=== PATIENT | female | born 1960 | race Caucasian/White ===

== ENCOUNTER 2016-09-02 12:29 | Emergency (ER) | payer BC ==
[~2016-09-02] VITALS: Ht 170.2 cm; Wt 82.9 kg
[~2016-09-02 12:29] MED LIST: CYCL-36 PO; ESTR0.5T PO; FENT25DI T-DERMAL; HYDR10SO PO; LOSA50TA PO; PROT40TA PO; ROSU20 PO
[2016-09-02 12:36] VITALS: BP 157/94; PULSE 107; RESP 16; TEMP 97.9; O2SAT 97
[2016-09-02] MEDS ORDERED: MORP1TAB24 PO (12:48)
[2016-09-02] MEDS ORDERED: ESTR0.5T PO (12:48)
[2016-09-02] MEDS ORDERED: HYDR-3535 PO (12:48)
[2016-09-02] MEDS ORDERED: LOSA100T PO (12:48)
[2016-09-02] MEDS ORDERED: ROSU20 PO (12:48)
--- NOTE | 2016-09-02 13:20 | RADHPO ---
EXAM DATE/TIME: 09/02/2016 13:05 [place] COMPARISON: No previous studies available for comparison. INDICATIONS : Cough and fever MEDICAL HISTORY : Hypertension. SURGICAL HISTORY : Fusion, cervical. ENCOUNTER: Initial ACUITY: 1 month PAIN SCORE: 4/10 LOCATION: Bilateral chest FINDINGS: Minimal parenchymal changes are present left base. Right lung is clear. The heart and pulmonary vasc ularity are normal. The portion of the bony skeleton visualized is unremarkable. CONCLUSION: Minimal parenchymal changes left base suspicious for an early inflammatory process. Shaun Gomez MD FACR on September 02, 2016 at 13:17 Board Certified Radiologist. This report was verified electronically.
--- NOTE | 2016-09-02 13:43 | PD ---
HPI Chief Complaint: Cold / Flu Symptoms Time Seen by Provider: 13:00 Travel History International Travel<30 days: No Contact w/Intl Traveler<30days: No Traveled to known affect area: No History of Present Illness HPI 56-year-old female presents emergency department for evaluation of a cough for one month. Patient reports approximately one month ago she developed upper respiratory like illness primarily nasal congestion which progressed into a sinus infection. She reports after completing the Augmentin for her sinus infection she developed a cough and continued nasal congestion. She reports 2 days ago she was evaluated by urgent care and put on azithromycin. She reports since that time she's had low-grade fevers of a MAXIMUM TEMPERATURE of 100 and a continued productive cough. She presents to the emergency department today for evaluation of cough and low-grade fever, wheezing, nasal congestion. She denies chest pain, shortness of breath, nausea, vomiting or shaking shivering chills. PFSH Past Medical History Narrative Medical Significant for hypertension, hyperlipidemia Cardiovascular Problems: Yes (htn on meds) High Cholesterol: Yes Diminished Hearing: No Gastrointestinal Disorders: Yes (GB PAIN.) Tetanus Vaccination: Unknown ?: Not Ovarian Cysts: Yes Tubal Ligation: Yes Past Surgical History Gynecologic Surgery: Yes (ABLASION) Hysterectomy: Yes Social History Alcohol Use: No Tobacco Use: No Substance Use: No Allergies-Medications (Allergen,Severity, Reaction): Coded Allergies: Latex (Verified Allergy, Severe, Swelling, 09/02/16) Reported Meds & Prescriptions Reported Meds & Active Scripts Active Reported Morphine ER (Morphine Sulfate) 15 Mg Tab 10 Mg PO Q8H Lortab (Hydrocodone-Acetaminophen) 10-325 Mg Tab 1 Tab PO Q8H PRN Crestor (Rosuvastatin Calcium) 20 Mg Tab 20 Mg PO DAILY Losartan (Losartan Potassium) 100 Mg Tab 100 Mg PO DAILY Estradiol 0.5 Mg Tab 0.5 Mg PO DAILY Review of Systems Except as stated in HPI: all other systems reviewed are Neg General / Constitutional: Positive: Fever Physical Exam Narrative GENERAL: Well-nourished, well-developed patient. SKIN: Focused skin assessment warm/dry. HEAD: Normocephalic. EYES: No scleral icterus. No injection or drainage. NECK: Supple, trachea midline. No JVD or lymphadenopathy. CARDIOVASCULAR: Regular rate and rhythm without murmurs, gallops, or rubs. RESPIRATORY: Breath sounds equal bilaterally. No accessory muscle use. No wheezing, rhonchi, rales. GASTROINTESTINAL: Abdomen soft, non-tender, nondistended. MUSCULOSKELETAL: No cyanosis, or edema. BACK: Nontender without obvious deformity. No CVA tenderness. Data Data Last Documented VS Vital Signs Date Time Temp Pulse Resp B/P Pulse Ox O2 Delivery O2 Flow Rate FiO2 09/02/16 12:36 97.9 107 16 157/94 97 Orders Chest, Pa & Lat (09/02/16 ) [facility] Medical Decision Making Medical Screen Exam Complete: Yes Emergency Medical Condition: Yes Differential Diagnosis Influenza, URI, bronchitis, pneumonia Narrative Course 56-year-old female presents emergency department for evaluation of a cough for one month. Patient was recently put on azithromycin and reports no symptom improvement. Today she presents for evaluation of productive cough and low- grade fever. She is nontoxic appearing. Chest x-ray shows slight left lower lobe infiltrate Patient will be treated for left lower lobe pneumonia Diagnosis Primary Impression: Pneumonia Qualified Code: J18.1 - Pneumonia of left lower lobe due to infectious organism Referrals: Primary Care Physician Patient Instructions: Bacterial Pneumonia (ED), General Instructions Additional Instructions: Take medications as prescribed. Follow-up with her doctor on Monday. Return to the emergency department if he developed high fevers, chills, nausea vomiting, or any new worsening symptoms. Scripts Albuterol 18 GM Inh (Ventolin Hfa 18 GM Inh)90 Mcg/Act Aer2 Puff INH Q4H PRN ( SHORTNESS OF BREATH) #1 INHALER Ref 0 Prov:Patrica Alvarado 09/02/16 Prednisone 20 Mg Tab40 Mg PO DAILY #8 TAB Ref 0 Prov:Patrica Alvarado 09/02/16 Levofloxacin (Levaquin)750 Mg Kwummy521 Mg PO DAILY #5 Prov:Patrica Alvarado 09/02/16 Disposition: 01 DISCHARGE HOME Condition: Stable Patrica Alvarado Sep 02, 2016 13:43
[2016-09-02] MEDS ORDERED: LEVA750T9 PO (13:49)
[2016-09-02] MEDS ORDERED: PRED20 PO (13:49)
[2016-09-02] MEDS ORDERED: VENTAER INH (13:49)
[2016-09-28] MEDS ORDERED: MORP1TAB24 PO (09:27)
[2016-09-28] MEDS ORDERED: DIAZ5 PO (10:59)
== END 2016-09-02 13:58 | disposition home or self-care (01) ==
LOC: PHEFT 12:29
DX: J18.1 Lobar pneumonia, unspecified organism (principal); E78.00 Pure hypercholesterolemia, unspecified; I10 Essential (primary) hypertension
CPT/HCPCS: 71020; 99284

== ENCOUNTER 2017-12-12 10:20 | Inpatient (IN) ==
[2017-12-12] MEDS ORDERED: Nitroglycerin Drip Premix 50 MG/250 ML BOTTLE ONE (13:45)
[2017-12-12] MEDS ORDERED: Iohexol 350 MG/ML 50 ML Vial (for Cath Lab) IVCONTRAST ONE (13:47)
[2017-12-12] MEDS ORDERED: fentaNYL Citrate Inj 100 MCG/2 ML Ampul IV.PUSH SCH (14:15)
[2017-12-12] MEDS ORDERED: Sod Chloride 0.9% Inj 1,000 ML IV.CONT SCH (14:15)
[2017-12-12] MEDS ORDERED: Nitroglycerin Drip Premix 50 MG/250 ML BOTTLE IV.CONT PRN (14:15)
[2017-12-12] MEDS ORDERED: diazePAM 5 MG Tablet PO SCH (14:15)
[2017-12-12] MEDS ORDERED: Heparin/NS PF Inj 1,500 ML ONE (14:55)
[2017-12-12] MEDS ORDERED: fentaNYL Citrate Inj 100 MCG/2 ML Ampul ONE (14:55)
[2017-12-12] MEDS ORDERED: Heparin 10,000 UNITS/10 ML Vial (for IV use) ONE (14:55)
[2017-12-12] MEDS ORDERED: fentaNYL Citrate Inj 100 MCG/2 ML Ampul IV.PUSH ONE ×2 (15:00→15:08)
--- NOTE | 2017-12-12 15:56 | CATHPROC ---
[employer] HIS Report Study Information Study Number Admission Scheduled Start Study Start [id number] Dec 12 2017 1:46PM 12/12/2017 Dec 12 2017 2:29PM [facility] Service Cardiac Catheterization Admit Source Facility Department Emergency department [facility] - [employer] Physician and Clinical Staff Initial Ilana Wiseman Gyroscopic Engineering Technician Luis Fernando Aquino,ROSIBEL Gyroscopic Engineering Technician Mirela Granados RN Gyroscopic Engineering Technician Meghan Campbell RN Gyroscopic Engineering Technician Bela Holt BSN Recorder Johana Seay,RT(R) (BS) Recorder Tran Rodgers RCIS TECH2 Scrub [place],RT(R) Procedures Performed Procedure Location (Site) Vessel Name Coronary Angiograms LCA Left Coronary Coronary Angiograms RCA Right Coronary L Heart Cath LV Gram-hand inj. LV LV Ventricle Equipment Time Regional Branch Manager Description Size Mfg Part Number Used/Scraped TRANSDUCER, TRUWAVE [id number] 15:06 TORRES LOPEZ * Used W/STOCKCOCK *[id number] INTRODUCER SET, 15:06 [employer] FR 5 [id number] *[id number] Used MICROPUNCTURE STIFF 538-420 *[id number] 538-421 *[id number] [id number] *[id number] 15:06 [employer] BLANKET,WARM AIR CCL * Used *[id number] 15:06 [employer] PACK, CCL CUSTOM * Used *[id number] 15:06 [employer] PACER PEN, SKIN DUAL W/ RULER * Used *[id number] 15:06 [employer] WIRE, 3MMJ .035 180CM 180CM Used *[id number] PROBE COVER, STERILE [id number] 15:06 [employer] * Used ULTRASOUND W/ GEL *[id number] 15:06 [employer], 4 PORT * Used *[id number] 15:06 [employer] OMNIPAQUE, 350 MG, 150ML 150ML [id number] Used [id number] 15:06 [employer] SHEATH, FR4 TERUMO (10CM) FR 4 Used *[id number] History: Allergies Allergy Reaction latex Swelling History: Risk Factors Family History of Hypertension Dyslipidemia Previous SC Previous Heart Failure Premature CAD Yes Yes No No No Prior Valve Prior PCI Prior CABG Surgery No No No Cerebrovascular Peripheral Artery Chronic Lung On Dialysis Diabetes Disease Disease Disease No No No No No History: Symptoms/Diagnosis Selection Items Chest pain SOB History: Stress Tests Stress or Imaging Studies Performed No History: Other Current Smoker No Labs Hgb (g/dl) Hct (%) WBC (l/cumm) Platelets (thousands) 11.60-17.00 35.00-51.00 4.00-11.00 150.00-450.00 13.8 39.7 8.8 305 Glucose (mg/dl) BUN (mg/dl) Creatinine (mg/dl) BUN:Creatinine (1:x) 74.00-106.00 7.00-18.00 0.50-1.30 10.00-20.00 133 8 0.8 10 Na (meq/l) K (meq/l) Cl (meq/l) CO2 (mmol/L) 136.00-145.00 3.50-5.10 98.00-107.00 21.00-32.00 143 3.6 105 22 Troponin I (ng/ml) CPK-MB (ng/ML) 0.02-0.05 0.50-3.60 0.41 Not Drawn Medication Medication Total Dose (Bolus/Oral) Medication Total Dosage/Unit 1% XYLOCAINE 20 mL FENTANYL 100 mcg VERSED 3 mg ZOFRAN 4 mg Medications (Bolus/Oral) Medication Time Given Dosage/Unit Administered By Reason JOSEP 12/12/2017 2:57:20 PM 4 mg Bela Holt 4 mg ZOFRAN given in lab by Bela Holt BSN in Right Antecubital via Peripheral IV. Ordered by Ilana Vaughan. VERSED 12/12/2017 2:58:24 PM 2 mg Bela Holt 2 mg VERSED given in lab by Bela Holt BSN in Right Antecubital via Peripheral IV. Ordered by Ilana Vaughan. FENTANYL 12/12/2017 3:00:35 PM 50 mcg Bela Holt 50 mcg FENTANYL given in lab by Bela Holt BSN in Right Antecubital via Peripheral IV. Orde red by Ilana Vaughan. 1% XYLOCAINE 12/12/2017 3:03:45 PM 20 mL Ilana Vaughan 20 mL 1% XYLOCAINE given in lab by Ilana Vaughan in Right Groin via Subcutaneous. VERSED 12/12/2017 3:08:12 PM 1 mg Bela oHlt 1 mg VERSED given in lab by Bela Holt BSN in Right Antecubital via Peripheral IV. Ordered by Ilana Vaughan. FENTANYL 12/12/2017 3:08:20 PM 50 mcg Bela Holt 50 mcg FENTANYL given in lab by Bela Holt BSN in Right Antecubital via Peripheral IV. Orde red by Ilana Vaughan. Medication (Drip) Medication Time Given Dosage/Unit Concentration/Unit Diluent (ml) Solution IV Solutions 12/12/2017 2:41:01 PM 0 mL (IV) 500 NaCl .9 Patient arrived on IV Solutions in Right Antecubital via Peripheral IV. Pump/Drip Flow = 20 ml/hr usi ng NaCl .9. NITROGLYCERIN DRIP 12/12/2017 2:41:18 PM 5 mcg/min 50 mg 250 D5W Patient arrived on 5 mcg/min NITROGLYCERIN DRIP in Right Antecubital via Peripheral IV. Pump/Drip Carlos A w = 1.5 ml/hr using D5W with a concentration of 50 mg in 250 ml. NITROGLYCERIN DRIP 12/12/2017 3:40:38 PM 20 mcg/min 50 mg 250 D5W 20 mcg/min NITROGLYCERIN DRIP given in lab by Mirela Granados, ROSIBEL in Right Antecubital via Peripheral IV. Pump/Drip Flow = 6 ml/hr using D5W with a concentration of 50 mg in 250 ml. Ordered by Ilana Vaughan. Hypertension Departed On. Initial Case Assessment Cardiovascular HR Rhythm NIBP Chest Pain 65 sr 157/70 0 Circulatory - Right Pulses Dorsalis Pedis Femoral 3 2 Scale (0,1,2,3,4,d) Circulatory - Left Pulses Dorsalis Pedis Femoral 2 2 Scale (0,1,2,3,4,d) Neurological State Oriented to time-place- Alert Moves all extremities person Respiration - General Respiration Rate SpO2 (%) (B/min) 14 100 Final Case Assessment Cardiovascular HR Rhythm NIBP Chest Pain 66 sr 155/81 0 Circulatory - Right Pulses Dorsalis Pedis Femoral 2 2 Scale (0,1,2,3,4,d) Circulatory - Left Pulses Dorsalis Pedis Femoral 2 2 Scale (0,1,2,3,4,d) Neurological State Oriented to time-place- Alert Moves all extremities person Respiration - General Respiration Rate SpO2 (%) (B/min) 21 98 Chronological Log Time Study Chronological Log 14:40:43 Patient arrived via Bed. Heparin drip 10ml/hr discontinued prior to arrival 10ml/hr. 14:40:44 Patient Name, D.O.B, / Armband Verified By R.N. 14:40:45 Consent signed by the physician and the patient and verified by the [employer] staff. 14:40:45 Pre-op and post- op instructions given; patient acknowledges understanding of instructions. 14:40:46 Verbal Stimulation=2 Physical Stimulation=2 Airway=2 Respiration=2 TOTAL=8. (0=absent, 1=li mited, 2=present) 14:40:47 Presedation assessment performed by [employer] RN. 14:40:53 Patient has been NPO for More than 6Hrs. 14:40:53 Skin Breakdown-bandage noted on left jain abrasions from fall. 14:40:54 Patient Warmer Placed on the Table. 14:40:57 August Prominences Protected 14:40:59 A # 20 IV was noted in the Antecubital (right). Grade = 0 14:41:01 Patient arrived on IV Solutions in Right Antecubital via Peripheral IV. Pump/Drip Flow = 20 ml/hr using NaCl .9. 14:41:02 History and physical on the chart or being dictated. Assessment: Initial Case, HR=65 BPM, Rhythm=sr, NKZQ=162/70 mmhg, Chest Pain=0 Right Pulses: Benjamin Ped=3, Femoral=2 14:41:03 Left Pulses: Benjamin Ped=2, Femoral=2 Neurological: State=Alert, Ox3, AREVALO Respiration: Resp=14 B/min, UfD1=126 % Patient arrived on 5 mcg/min NITROGLYCERIN DRIP in Right Antecubital via Peripheral IV. Pump/Dr ip Flow = 1.5 ml/hr 14:41:18 using D5W with a concentration of 50 mg in 250 ml. Vitals capture started with the following parameters, Patient=Adult, Interval=5 min, Initial Pr xzvrmr=138 mmHg, 14:45:38 Deflation Rate=5 mmHg, Cuff placed on Left Arm 14:47:01 HR=65 bpm, POFY=910/70 mmhg, JmT1=445.0 %, Resp=6 B/min 14:51:25 HR=67 bpm, UQMY=260/61 mmhg, KkQ1=078.0 %, Resp=10 B/min 14:54:03 Reference ECG taken 14:55:16 Bilateral groins prepped with 2% chlorhexidine, and draped after a 3 minute waiting time. 14:55:26 MD arrived. 14:56:20 HR=64 bpm, BUQN=236/88 mmhg, HzJ3=762.0 %, Resp=16 B/min 4 mg ZOFRAN given in lab by Bela Holt BSN in Right Antecubital via Peripheral IV. Or dered by Clement, 14:57:20 Humayun. 2 mg VERSED given in lab by Bela Holt BSN in Right Antecubital via Peripheral IV. Or dered by Clement, 14:58:24 Humayun. 15:00:14 History and physical on the chart or being dictated. 50 mcg FENTANYL given in lab by Blea Holt BSN in Right Antecubital via Peripheral IV . Ordered by 15:00:35 Ilana Vaughan. 15:01:15 HR=71 bpm, QJUZ=414/78 mmhg, OoS1=743.0 %, Resp=26 B/min Time Out. Correct patient, correct procedure, correct physician, labs, allergies, and equipment verified with cathode ray tube salvage processor 15:03:42 team present. Fire risk assesment completed (see hard stop sheet for coding). Time Out Conc urred by MD and individual staff in procedure. 15:03:44 Case Start 15:03:45 20 mL 1% XYLOCAINE given in lab by Ilana Vaughan in Right Groin via Subcutaneous. 15:04:46 Access site was Right Femoral Artery. A INTRODUCER SET, MICROPUNCTURE STIFF FR 5 was advanced into the Fem Art (right) using the Perc utaneous 15:04:55 technique. A SHEATH, FR4 TERUMO (10CM) FR 4 was exchanged in the Fem Art (right). This was necessary in or marcos to 15:04:58 accomodate a larger catheter. 15:07:01 HR=70 bpm, IXZF=430/80 mmhg, SpO2=98.0 %, Resp=20 B/min 1 mg VERSED given in lab by Bela Holt BSN in Right Antecubital via Peripheral IV. Or dered by Clement, 15:08:12 Ilana. 50 mcg FENTANYL given in lab by Bela Holt BSN in Right Antecubital via Peripheral IV . Ordered by 15:08:20 Ilana Vaughan. 15:08:30 Pressure channel 2 zeroed. A JL 4.0 INFINITI CATHETER FR 4 was advanced over a wire. OMNIPAQUE, 350 MG, 150ML 150ML was us ed for 15:08:53 injections. Recorded Pressure: Ao, HR=69, Condition=Condition 1 15:10:39 (Aorta) Ao 169/78/116 15:11:05 The LCA was injected and visualized at various angles. OMNIPAQUE, 350 MG, 150ML 150ML used . 15:11:21 HR=67 bpm, LIUW=128/80 mmhg, SpO2=96.0 %, Resp=22 B/min 15:13:18 After removing the current catheter a JR 4.0 INFINITI CATHETER FR 4 was advanced over a wir e. 15:15:08 The RCA was injected and visualized at various angles. OMNIPAQUE, 350 MG, 150ML 150ML used . After removing the current catheter a PIGTAIL ANG. INFINITI CATHETER FR 4 was advanced over a W REGINO, 3MMJ .035 15:15:53 180CM 180CM. 15:16:20 HR=81 bpm, XPBE=667/79 mmhg, SpO2=96.0 %, Resp=29 B/min Recorded Pressure: LV, HR=88, Condition=Condition 1 15:17:19 (Left Ventricle) LV 189/13/33 15:17:34 The LV was manually injected with 10 cc's and visualized. OMNIPAQUE, 350 MG, 150ML 150ML us ed. Recorded Pressure: LV, Ao, HR=76, Condition=Condition 1 15:17:46 (Left Ventricle) LV 179/15/32, (Aorta) Ao 193/91/139 15:18:56 Catheter was removed 15:19:07 Case End (Physician broke scrub) 15:19:34 Sheath removed; pressure applied to access site. 15:21:25 HR=77 bpm, HFGO=715/77 mmhg, SpO2=96.0 %, Resp=21 B/min 15:26:26 HR=80 bpm, HEOH=003/77 mmhg, SpO2=99.0 %, Resp=26 B/min 15:30:18 Hemostasis obtained. 15:31:23 HR=68 bpm, CFBR=233/81 mmhg, WxJ4=561.0 %, Resp=49 B/min 15:31:28 Sterile dressing applied to site Assessment: Final Case, HR=66 BPM, Rhythm=sr, HUHQ=103/81 mmhg, Chest Pain=0 Right Pulses: Benjamin Ped=2, Femoral=2 15:31:32 Left Pulses: Benjamin Ped=2, Femoral=2 Neurological: State=Alert, Ox3, AREVALO Respiration: Resp=21 B/min, SpO2=98 % 15:36:40 Vitals capture stopped. 15:38:55 Cine recording checked. 15:38:57 Bedside Report will be given. 15:39:06 Patient moved to bed. 15:39:19 A Left Heart Cath was performed. 20 mcg/min NITROGLYCERIN DRIP given in lab by Mirela Granados, ROSIBEL in Right Antecubital via Oriana pheral IV. 15:40:38 Pump/Drip Flow = 6 ml/hr using D5W with a concentration of 50 mg in 250 ml. Ordered by Ilana Seo. Hypertension Departed On. 15:44:52 Patient transported to [facility]. End Study - Contrast Media Used In Study Contrast Total Opened (mL) Total Used (mL) Total Wasted (mL) Omnipaque 25 25 0 End Study - Maximum Contrast Load Max Contrast Load (mL) 561.9 End Study - Radiation Exposure Fluoro Time Fluoro Dose (mGy) Cine Dose (uGym2) (minutes) 1.9 502 3291 End Study - Sheaths Sheaths Pulled By Sheath Hold Time (min) [place] End Study - Patient Disposition Complications Transferred To Interventional Outcome No Telemetry Bed No attempt made
[2017-12-12] MEDS: amLODIPine 5 MG Tablet PO SCH (16:48)
--- NOTE | 2017-12-12 17:09 | P.CONGI ---
History of Present Illness Consult date: 12/12/17 Consult reason: Nausea and vomiting, epigastric pain Chief complaint: NSTEMI History of Present Illness: This is a 57-year-old female who was in her usual state of health up until approximately 24 hours ago when she awakened and had uncontrolled nausea and vomiting multiple times. Patient was initially evaluated at [facility] but was transitioned here to [facility] today. Patient also noted some epigastric pain and tenderness and has a history of Duff's esophagus and colon polyps. Last EGD/colonoscopy was 2 years ago and patient states that she takes Protonix daily. She also has a history of GERD. Patient denies any obvious bleeding but has had a recent change in her bowel habits states that she usually has constipation which could be related to IBS versus her chronic pain narcotics but notes that she did have a loose stool which was dark brown but no obvious blood. Patient has been monitored for IBS in the past and does note positive family history of colon cancer with her grandmother in their 70s. Initial blood work showed hemoglobin 13.8, WBC count 8.8, platelet count 305, bilirubin and LFTs were normal and lipase was normal at 92. Patient also had positive troponin so she was brought to [facility] for cardiac cath today. She is now cleared for any further GI workup and gastroenterology has been called to assist with her symptoms. CT scan showed colitis which could be related to her change in bowel habits and some loose stools. Patient does note chronic NSAID use along with her pain management which could make her high risk for inflammation and ulcers in the esophagus or gastric area. <Margaret Ojeda - Last Filed: 12/12/17 16:59> Review of Systems All other systems reviewed negative except as stated in HPI <Margaret Ojeda - Last Filed: 12/12/17 16:59> PMFSH - History History Provided By: Patient - Medical History Medical History: Medical History (Last Updated 12/12/17 @ 11:38 by Lindsay Langford RN) Chiari malformation Hx of hysterectomy - Surgical History Surgical History: Surgical History (Last Reviewed 12/12/17 @ 11:38 by Lindsay Langford RN) Hx of neck surgery Hx of rotator cuff surgery - Tobacco History Smoking Status: Never smoker - Alcohol History How Often Do You Have a Drink Containing Alcohol: Never - Substance Use History Substance History: No History of Abuse <Margaret Ojeda - Last Filed: 12/12/17 16:59> - Medical History Medical History: Medical History (Last Updated 12/12/17 @ 11:38 by Lindsay Langford, ROSIBEL) Chiari malformation Hx of hysterectomy - Surgical History Surgical History: Surgical History (Last Reviewed 12/12/17 @ 11:38 by Lindsay Langford, RN) Hx of neck surgery Hx of rotator cuff surgery <Pauline Kuhn - Last Filed: 12/12/17 18:03> Medications and Allergies Active Medications: Active Medications Amlodipine Besylate (Norvasc) 5 mg PO DAILY [facility] Last Admin: 12/12/17 16:48 Dose: 5 mg Diazepam (Valium) 5 mg PO COVER STITCH MACHINE OPERATOR MATHEW Stop: 12/16/17 14:14 Diphenhydramine HCl (Benadryl) 50 mg PO COVER STITCH MACHINE OPERATOR MATHEW Stop: 12/16/17 14:14 Diphenhydramine HCl (Benadryl Inj) 25 mg IV.PUSH COVER STITCH MACHINE OPERATOR [facility] Stop: 12/16/17 14:59 Enalaprilat (Vasotec Inj) 1.25 mg IV.PUSH Q8H PRN PRN Reason: HYPERTENSION Fentanyl Citrate (Fentanyl Inj) 50 mcg IV.PUSH COVER STITCH MACHINE OPERATOR [facility] Stop: 12/16/17 14:14 Sodium Chloride (Ns Inj) 1,000 mls @ 30 mls/hr IV.CONT .Q24H [facility] Nitroglycerin/Dextrose (Nitroglycerin Drip Premix) 50 mg in 250 mls @ 0 mls/hr IV.CONT TITRATE PRN; Protocol PRN Reason: Per Protocol Last Admin: 12/12/17 13:30 Dose: 20 mcg/min, 6 mls/hr Midazolam HCl (Versed Inj) 1 mg IV.PUSH COVER STITCH MACHINE OPERATOR MATHEW Stop: 12/16/17 14:14 Ondansetron HCl (Zofran Inj) 4 mg IV.PUSH Q6H PRN PRN Reason: NAUSEA OR VOMITING Last Admin: 12/12/17 14:00 Dose: 4 mg Oxycodone/Acetaminophen (Percocet 5/325 Mg) 1 tab PO Q4H PRN PRN Reason: PAIN SCALE 1 TO 4 Oxycodone/Acetaminophen (Percocet 5/325 Mg) 2 tab PO Q4H PRN PRN Reason: PAIN SCALE 5 TO 10 Promethazine HCl (Phenergan) 25 mg PO Q4H PRN PRN Reason: VOMITING Last Admin: 12/12/17 16:48 Dose: 25 mg Sodium Chloride (Ns Flush) 2 ml IV.FLUSH BID [facility] Sodium Chloride (Ns Flush) 2 ml IV.FLUSH PRN PRN PRN Reason: FLUSH AFTER USING IV ACCESS <Blair,Margaret M - Last Filed: 12/12/17 16:59> Active Medications: Active Medications Amlodipine Besylate (Norvasc) 5 mg PO DAILY [facility] Last Admin: 12/12/17 16:48 Dose: 5 mg Diazepam (Valium) 5 mg PO COVER STITCH MACHINE OPERATOR [facility] Stop: 12/16/17 14:14 Diphenhydramine HCl (Benadryl) 50 mg PO COVER STITCH MACHINE OPERATOR [facility] Stop: 12/16/17 14:14 Diphenhydramine HCl (Benadryl Inj) 25 mg IV.PUSH COVER STITCH MACHINE OPERATOR [facility] Stop: 12/16/17 14:59 Enalaprilat (Vasotec Inj) 1.25 mg IV.PUSH Q8H PRN PRN Reason: HYPERTENSION Last Admin: 12/12/17 17:13 Dose: 1.25 mg Fentanyl Citrate (Fentanyl Inj) 50 mcg IV.PUSH COVER STITCH MACHINE OPERATOR [facility] Stop: 12/16/17 14:14 Hydralazine HCl (Apresoline Inj) 10 mg IV.PUSH Q8H PRN PRN Reason: SBP > 150 AND DBP > 90 Sodium Chloride (Ns Inj) 1,000 mls @ 30 mls/hr IV.CONT .Q24H [facility] Nitroglycerin/Dextrose (Nitroglycerin Drip Premix) 50 mg in 250 mls @ 0 mls/hr IV.CONT TITRATE PRN; Protocol PRN Reason: Per Protocol Last Titration: 12/12/17 17:26 Dose: 30 mcg/min, 9 mls/hr Lorazepam (Ativan Inj) 0.5 mg IV.PUSH Q6H PRN PRN Reason: ANXIETY Midazolam HCl (Versed Inj) 1 mg IV.PUSH COVER STITCH MACHINE OPERATOR [facility] Stop: 12/16/17 14:14 Morphine Sulfate (Msir) 15 mg PO Q4H PRN PRN Reason: Pain 1-10 Ondansetron HCl (Zofran Inj) 4 mg IV.PUSH Q6H PRN PRN Reason: NAUSEA OR VOMITING Last Admin: 12/12/17 14:00 Dose: 4 mg Pantoprazole Sodium (Protonix Inj) 40 mg IV.PUSH Q12H [facility] Sodium Chloride (Ns Flush) 2 ml IV.FLUSH BID [facility]HEW Sodium Chloride (Ns Flush) 2 ml IV.FLUSH PRN PRN PRN Reason: FLUSH AFTER USING IV ACCESS <Pauline Kuhn - Last Filed: 12/12/17 18:03> Allergies Allergy/AdvReac Type Severity Reaction Status Date / Time latex Allergy Severe Swelling Verified 12/12/17 10:31 Home Medications Medication Instructions Recorded Confirmed Type estradiol 2 mg PO DAILY 12/12/17 12/12/17 History morphine 15 mg PO Q4-6H PRN 12/12/17 12/12/17 History oxycodone 10 mg PO Q4-6H PRN 12/12/17 12/12/17 History pantoprazole [Protonix] 20 mg PO DAILY 12/12/17 12/12/17 History Exam Vital signs: Intake & Output 12/11/17 12/12/17 12/12/17 18:59 06:59 18:59 Intake Total 200 / 200 Balance 200 / 200 Intake: Anesthesia Amount 200 / 200 - Constitutional mild distress, obese, cooperative - Routine HEENT Exam Head: Present: normocephalic ENT: Present: mucous membranes dry - Routine Neck Exam Present: supple - Routine Respiratory Exam Present: accessory muscle use (No obvious shortness of breath at rest and no wheezing) - Routine Cardiovascular Exam Present: S1, S2 - Routine Abdominal Exam Present: soft (Round, soft, no obvious distention, epigastric tenderness) - Routine Skin Exam Present: intact <Margaret Ojeda - Last Filed: 12/12/17 16:59> Vital signs: Intake & Output 12/11/17 12/12/17 12/12/17 18:59 06:59 18:59 Intake Total 200 / 200 Balance 200 / 200 Intake: Anesthesia Amount 200 / 200 <Pauline Kuhn - Last Filed: 12/12/17 18:03> Assessment and Plan - Plan 57-year-old female who was in her usual state of health up until approximately 24 hours ago when she awakened and had uncontrolled nausea and vomiting multiple times. Patient was initially evaluated at [facility] but was transitioned here to [facility] today. Patient also noted some epigastric pain and tenderness and has a history of Duff's esophagus and colon polyps. Last EGD/colonoscopy was 2 years ago and patient states that she takes Protonix daily. She also has a history of GERD. Patient denies any obvious bleeding but has had a recent change in her bowel habits states that she usually has constipation which could be related to IBS versus her chronic pain narcotics but notes that she did have a loose stool which was dark brown but no obvious blood. Patient has been monitored for IBS in the past and does note positive family history of colon cancer with her grandmother in their 70s. Initial blood work showed hemoglobin 13.8, WBC count 8.8, platelet count 305, bilirubin and LFTs were normal and lipase was normal at 92. Patient also had positive troponin so she was brought to [facility] for cardiac cath today. She is now cleared for any further GI workup and gastroenterology has been called to assist with her symptoms. CT scan showed colitis which could be related to her change in bowel habits and some loose stools. EGD discussed with patient and she agreed to move forward based on her symptoms. Also been using NSAIDs along with her pain management which could cause complications with ulcers and inflammation. Plan Diet clear liquids Consent for EGD in the a.m. PPI increased to twice daily Bowel regimen as needed Monitor labs with special attention hemoglobin Pain management per attending Recommendations to follow Patient was seen per myself and Dr. Kuhn, note was written on his behalf <Margaret Ojeda - Last Filed: 12/12/17 16:59> - Plan Seen and examined with ROLLED SEAT TRIMMER, CT reviewed. She has been taking ASA and Motrins so PUD/Gastritis likely diagnosis. Cardiac cath -ve. EGD tomorrow, if -v colonoscopy and possible HIDA scan. Discussed with daughter who is an ROLLED SEAT TRIMMER. Thank you The exam, history, and the medical decision-making described in the above note were completed with the assistance of the mid-level provider. I reviewed and agree with the findings presented. I attest that I had a [id number] encounter with the patient on the same day, and personally performed and documented my assessment and findings in the medical record. <Pauline Kuhn - Last Filed: 12/12/17 18:03>
--- NOTE | 2017-12-12 17:21 | MA ---
cc: Ilana Vaughan MD DATE: 12/12/2017 CARDIAC CATHETERIZATION REPORT INDICATION FOR CATHETERIZATION: Severe unstable angina with positive troponin. The patient was taken directly to the laboratory phlebotomist from [facility]. CONSENT: Fully informed consent was obtained prior to the procedure. The risks of , bleeding, myocardial infarction, perforation, aspiration, foreseen and unforeseen complications were reviewed. The patient appeared to understand the risks. PROCEDURAL STATEMENTS: The patient was prepped and draped in usual manner. Right femoral artery was entered using a micro punch via a 4-Malawian sheath. Left and right coronary catheter was used the to intubate the left and right coronaries. The pigtail catheter to left ventricle; multiple angiographic views were carried out. At the end of the catheterization procedure all catheter sheaths removed; manual pressure applied until good hemostasis was achieved and the patient was to his room in stable condition. SEDATION: Fentanyl and Versed used. HEMODYNAMICS: Aortic pressure was 192/91 with a mean of 139. The left ventricular pressure was 179 with a left ventricular pressure of 32. There was no evidence of significant gradient on pullback across the LV outflow trac and aortic valve. LEFT VENTRICULOGRAM: The overall left ventricular ejection fraction 60%. There was no significant mitral regurgitation. CORONARY ARTERIES: Left main was long and free of significant disease. The circumflex came off early off the left main. There was a diagonal branch that came off in the direction of a normal ramus that was tortuous and free of significant disease. The remainder of the LAD was a large vessel. There is evidence of some streaming in the mid LAD, but no significant stenosis. The LAD was a large tortuous vessel. There was evidence of a medium size diagonal branch that was free of significant disease. The circumflex was small to medium size vessel; was also free of significant disease. The right coronary artery was a large dominant vessel with the posterior descending artery and posterolateral branch coming off the right coronary; this vessel was also tortuous. CONCLUSIONS: Normal LV function and tortuous coronary arteries consistent with hypertensive disease. PLAN: Medical management and look for a GI cause of the patient's chest pain and vomiting. MD NITHYA Osullivan/homar/aldo , 03:44 PM , 04:32 PM XIOMARA
--- NOTE | 2017-12-12 18:01 | P.HP ---
History of Present Illness Primary Care Physician: UNKNOWN History of Present Illness: 57-year-old white female being admitted for chest pain. Patient was in her usual state of health until about 2-3 days ago in which she began to experience a decreased appetite with nausea and vomiting. Says her vomiting was essentially non-bloody. Symptoms persisted and progressed until today when after a handful of rounds of vomiting she began experiencing chest pain. That she decided to contact her daughter and proceed to the emergency department. Patient denies having any pleuritic chest pain. Denies having any diarrhea. Says she has not had a bowel movement for about for 5 days now. Typically she has a bowel movement every 2-3 days at least. Patient says she had been taking ibuprofen and alternating this with her pain medications ( morphine extended release and hydrocodone) for her chronic neck pains and shoulder pain. In the outside emergency department she had been evaluated and had a slightly elevated troponin bump of 0.4. EKG which and apparently reviewed shows no acute ST segment changes concerning for ischemia or infarction. She had a CT abdomen done which upon my independent review shows a fair amount of constipation but no other acute findings except for very mild colitis per radiology read. Chest x-ray read as negative. Patient was given IV fluids and clopidogrel. She was started on a heparin drip. Patient has already undergone cardiac catheterization with no occlusion noted. She continues to have multiple rounds of emesis and does not think she can hold down p.o. medications. Has already received IV Zofran and is still nauseated. Daughter states that the patient has a history of barrettes esophagus confirmed on EGD. Patient does take estradiol for hormone replacement therapy. Review of Systems All other systems reviewed negative except as stated in HPI PMFSH - History History Provided By: Patient, Family Member - Medical History Medical History: Medical History (Last Updated 12/12/17 @ 17:59 by Golden Menendez MD) Barretts esophagus Chiari malformation Hx of hysterectomy - Surgical History Surgical History: Surgical History (Last Reviewed 12/12/17 @ 17:59 by Golden Menendez MD) Hx of neck surgery Hx of rotator cuff surgery - Family History Family History: Family History (Last Updated 12/12/17 @ 17:59 by Golden Menendez MD) Other Hypertension - Social History I have reviewed the patient's Social History: Yes - Tobacco History Smoking Status: Never smoker - Alcohol History How Often Do You Have a Drink Containing Alcohol: Never - Substance Use History Substance History: No History of Abuse Medications and Allergies Active Medications: Active Medications Amlodipine Besylate (Norvasc) 5 mg PO DAILY [facility] Last Admin: 12/12/17 16:48 Dose: 5 mg Diazepam (Valium) 5 mg PO LEGAL ASSISTANT MATHEW Stop: 12/16/17 14:14 Diphenhydramine HCl (Benadryl) 50 mg PO LEGAL ASSISTANT MATHEW Stop: 12/16/17 14:14 Diphenhydramine HCl (Benadryl Inj) 25 mg IV.PUSH LEGAL ASSISTANT [facility] Stop: 12/16/17 14:59 Enalaprilat (Vasotec Inj) 1.25 mg IV.PUSH Q8H PRN PRN Reason: HYPERTENSION Last Admin: 12/12/17 17:13 Dose: 1.25 mg Fentanyl Citrate (Fentanyl Inj) 50 mcg IV.PUSH LEGAL ASSISTANT [facility] Stop: 12/16/17 14:14 Hydralazine HCl (Apresoline Inj) 10 mg IV.PUSH Q8H PRN PRN Reason: SBP > 150 AND DBP > 90 Sodium Chloride (Ns Inj) 1,000 mls @ 30 mls/hr IV.CONT .Q24H [facility]HEW Nitroglycerin/Dextrose (Nitroglycerin Drip Premix) 50 mg in 250 mls @ 0 mls/hr IV.CONT TITRATE PRN; Protocol PRN Reason: Per Protocol Last Titration: 12/12/17 17:26 Dose: 30 mcg/min, 9 mls/hr Lorazepam (Ativan Inj) 0.5 mg IV.PUSH Q6H PRN PRN Reason: ANXIETY Midazolam HCl (Versed Inj) 1 mg IV.PUSH LEGAL ASSISTANT [facility] Stop: 12/16/17 14:14 Morphine Sulfate (Msir) 15 mg PO Q4H PRN PRN Reason: Pain 1-10 Ondansetron HCl (Zofran Inj) 4 mg IV.PUSH Q6H PRN PRN Reason: NAUSEA OR VOMITING Last Admin: 12/12/17 14:00 Dose: 4 mg Pantoprazole Sodium (Protonix Inj) 40 mg IV.PUSH Q12H [facility] Promethazine HCl (Phenergan Inj) 12.5 mg IM ONCE ONE Stop: 12/12/17 17:53 Sodium Chloride (Ns Flush) 2 ml IV.FLUSH BID MATHEW Sodium Chloride (Ns Flush) 2 ml IV.FLUSH PRN PRN PRN Reason: FLUSH AFTER USING IV ACCESS Allergies Allergy/AdvReac Type Severity Reaction Status Date / Time latex Allergy Severe Swelling Verified 12/12/17 10:31 Home Medications Medication Instructions Recorded Confirmed Type estradiol 2 mg PO DAILY 12/12/17 12/19/17 History morphine 15 mg PO TID PRN 12/12/17 12/19/17 History oxycodone 10 mg PO BID PRN 12/12/17 12/19/17 History pantoprazole [Protonix] 40 mg PO DAILY 12/12/17 12/19/17 History Exam Vital signs: Intake & Output 12/11/17 12/12/17 12/12/17 18:59 06:59 18:59 Intake Total 200 / 200 Balance 200 / 200 Intake: Anesthesia Amount 200 / 200 Narrative: VS: afebrile GENERAL: Lying in bed, appears distressed secondary to nausea SKIN: Warm and dry. EYES: Pupils equal and round. No scleral icterus. No injection or drainage. ENT: No nasal bleeding or discharge. Mucous membranes pink and moist. CARDIOVASCULAR: Regular rate and rhythm. no murmurs RESPIRATORY: No accessory muscle use. Clear to auscultation. Breath sounds equal bilaterally. GASTROINTESTINAL: Abdomen soft, nondistended, mildly tender to palpation diffusely Extremities: No clubbing, cyanosis, or edema. No obvious deformities. MUSCULOSKELETAL: adequate muscle bulk and tone for age and habitus NEUROLOGICAL: Awake and alert. No obvious cranial nerve deficits. No facial droop nor slurred speech noted. PSYCHIATRIC: Appropriate mood and affect; insight and judgment normal. Results - Labs CBC & Chem 7: 12/20/17 04:47 12/21/17 05:26 Caprini VTE Risk Assessment Caprini VTE Risk Assessment: Moderate/High Risk (score >= 2) Caprini Risk Assessment Model: Point Value = 1 Point Value = 2 Point Value = 3 Point Value = 5 Age 41-60 Minor surgery BMI > 25 kg/m2 Swollen legs Varicose veins or History of unexplained or recurrent spontaneous Oral contraceptives or hormone replacement Sepsis (< 1 month) Serious lung disease, including pneumonia (< 1 month) Abnormal pulmonary function Acute myocardial infarction Congestive heart failure (< 1 month) History of inflammatory bowel disease Medical patient at bed rest Age 61-74 Arthroscopic surgery Major open surgery (> 45 min) Laparoscopic surgery (> 45 min) Malignancy Confined to bed (> 72 hours) Immobilizing plaster cast Central venous access Age >= 75 History of VTE Family history of VTE Factor V Leiden Prothrombin [id number] Lupus anticoagulant Anticardiolipin antibodies Elevated serum homocysteine Heparin-induced thrombocytopenia Other congenital or acquired thrombophilia Stroke (< 1 month) Elective arthroplasty Hip, pelvis, or leg fracture Acute spinal cord injury (< 1 month) Prophylaxis Regimen: Total Risk Factor Score Risk Level Prophylaxis Regimen 0-1 Low Early ambulation 2 Moderate Order ONE of the following: *Sequential Compression Device (SCD) *Heparin 5000 units SQ BID 3-4 Higher Order ONE of the following medications: *Heparin 5000 units SQ TID *Enoxaparin/Lovenox 40 mg SQ daily (WT < 150 kg, CrCl > 30 mL/min) *Enoxaparin/Lovenox 30 mg SQ daily (WT < 150 kg, CrCl > 10-29 mL/min) *Enoxaparin/Lovenox 30 mg SQ BID (WT < 150 kg, CrCl > 30 mL/min) AND/OR *Sequential Compression Device (SCD) 5 or more Highest Order ONE of the following medications: *Heparin 5000 units SQ TID (Preferred with Epidurals) *Enoxaparin/Lovenox 40 mg SQ daily (WT < 150 kg, CrCl > 30 mL/min) *Enoxaparin/Lovenox 30 mg SQ daily (WT < 150 kg, CrCl > 10-29 mL/min) *Enoxaparin/Lovenox 30 mg SQ BID (WT < 150 kg, CrCl > 30 mL/min) AND *Sequential Compression Device (SCD) Assessment and Plan - Plan 57-year-old white female admitted for nausea vomiting chest pain Chest pain Status post cardiac catheterization with no ACS noted GI consulted, plans to perform EGD in a.m. -Given that the patient is on hormone replacement therapy I will at least check a d-dimer and if elevated proceed with CTA Nausea vomiting -wide diff. from PUD to acute AGE, awaiting LFTs and if abnormal proceed with GBUS -We will attempt to stick to both oral and IV Phenergan as tolerated, will try to avoid Zofran as this can worsen constipation, will definitely try to avoid Reglan as this could back fire as well -One-time dose of Relistor and then start with oral laxatives after EGD Chronic pain Continue home pain medications, and if unable to tolerate p.o. meds, resort to IV as needed SCDs for now
[2017-12-12] MEDS ORDERED: Methylnaltrexone Inj 12 MG/0.6 ML Vial SQ ONE (18:04)
[2017-12-12 18:05] LABS: Activated Partial Thrombo Time 21.1 sec (24.3-30.1); Prothrombin Time 10.6 sec (9.8-11.6)
[2017-12-12 18:09] LABS: Albumin 3.7 g/dL (3.4-5.0)
[2017-12-12 18:11] LABS: Total Protein 7.2 g/dL (6.4-8.2)
[2017-12-12] MEDS: Pantoprazole Inj 40 MG Vial IV.PUSH SCH (18:14)
[2017-12-12] MEDS: Morphine Sulfate Inj 2 MG/ML Vial IV.PUSH PRN ×2 (18:16→21:33)
--- NOTE | 2017-12-12 22:33 | ECG ---
Date Performed: 12/12/2017 Time Performed: 17:06:22 PTAGE: 57 years EKG: Sinus arrhythmia. Prolonged QT interval rSr'(V1) - probable normal variant Septal ST-T grullon ges are nonspecific Borderline ECG Since the PREVIOUS TRACING , no significant change noted DOCTOR: Deb Clark Interpretating Date/Time 12/12/2017 22:31:42
--- NOTE | 2017-12-12 23:20 | NM ---
EXAM DATE: 12/12/2017 10:55 PM EDT AGE/SEX: 57 years / Female INDICATIONS: Dyspnea. CLINICAL DATA: This is the patient's initial encounter. Patient reports that signs and symptoms have been present for 1 day and indicates a pain score of 0/10. MEDICAL/SURGICAL HISTORY: None. Hysterectomy. COMPARISON: C, CHEST 2V PA&LAT, 12/12/2017. . DOSE: 1.2 mCi Tc99m DTPA aerosol 8.5 mCi Tc99m MAA IV TECHNIQUE: Following five minutes of tidal breathing of DTPA aerosol, planar images of the lungs wer e performed in eight projections. The patient was then injected with MAA, and eight-view perfusion s can was performed. FINDINGS: There is a homogeneous pattern of aerosol delivery to the periphery of both lungs. No focal ventilat ory defects are seen. There is minimal aerosol deposition in the central lungs bilaterally. The perfusion lung scan demonstrates a homogenous pattern of uptake in both lungs. No segmental or s ubsegmental defects are seen. Two-view examination of the chest demonstrates the lungs to be clear. CONCLUSION: 1. Low probability pulmonary embolism. Electronically signed by: Jose Leija MD 12/12/2017 11:19 PM EDT
--- NOTE | 2017-12-12 23:42 | XR ---
EXAM DATE: 12/12/2017 12:00 AM EDT AGE/SEX: 57 years / Female INDICATIONS: . Comp VQ scan. CLINICAL DATA: This is the patient's initial encounter. Patient reports that signs and symptoms have been present for 1 day and indicates a pain score of 5/10. MEDICAL/SURGICAL HISTORY: . . Hysterectomy. Fusion, cervical COMPARISON: [facility], CHEST PA & LAT, 09/02/2016. . FINDINGS: PA and lateral views of the chest demonstrate the lungs to be symmetrically aerated without evidence of mass, infiltrate or effusion. The cardiomediastinal contours are unremarkable. Anterior plate in t he lower cervical region.. CONCLUSION: No acute cardiopulmonary disease. Electronically signed by: Jose Leija MD 12/12/2017 11:41 PM EDT
[2017-12-13] MEDS: Acetaminophen 325 MG Tablet PO PRN (00:31)
[2017-12-13] MEDS: Morphine Sulfate Inj 2 MG/ML Vial IV.PUSH PRN ×5 (03:40→20:52)
[2017-12-13] MEDS: Pantoprazole Inj 40 MG Vial IV.PUSH SCH ×2 (05:39→20:52)
[2017-12-13] MEDS: hydrALAZINE HCl Inj 20 MG/ML Vial IV.PUSH PRN ×2 (07:06→20:52)
--- NOTE | 2017-12-13 07:25 | P.PNCA ---
Subjective Interval history: The patient had negative cardiac cath yesterday. VQ negative. Overnight, BP remained elevated. No CP or SOB. Had recurrent retching and vomiting. No hematemesis. Abdominal pain improving this morning. Right groin access no ecchymosis, swelling or pain. Pending EGD this morning. Medications and Allergies Allergies Allergy/AdvReac Type Severity Reaction Status Date / Time latex Allergy Severe Swelling Verified 12/12/17 10:31 Home Medications Medication Instructions Recorded Confirmed Type estradiol 2 mg PO DAILY 12/12/17 12/12/17 History morphine 15 mg PO Q4-6H PRN 12/12/17 12/12/17 History oxycodone 10 mg PO Q4-6H PRN 12/12/17 12/12/17 History pantoprazole [Protonix] 20 mg PO DAILY 12/12/17 12/12/17 History Active Medications: Active Medications Acetaminophen (Tylenol) 650 mg PO Q4H PRN PRN Reason: FEVER Last Admin: 12/13/17 00:31 Dose: 650 mg Amlodipine Besylate (Norvasc) 5 mg PO DAILY [facility] Last Admin: 12/12/17 16:48 Dose: 5 mg Diazepam (Valium) 5 mg PO [employer] [facility] Stop: 12/16/17 14:14 Diphenhydramine HCl (Benadryl) 50 mg PO [employer] [facility] Stop: 12/16/17 14:14 Diphenhydramine HCl (Benadryl Inj) 25 mg IV.PUSH [employer] [facility] Stop: 12/16/17 14:59 Enalaprilat (Vasotec Inj) 1.25 mg IV.PUSH Q8H PRN PRN Reason: HYPERTENSION Last Admin: 12/13/17 03:11 Dose: 1.25 mg Fentanyl Citrate (Fentanyl Inj) 50 mcg IV.PUSH [employer] [facility] Stop: 12/16/17 14:14 Hydralazine HCl (Apresoline Inj) 10 mg IV.PUSH Q8H PRN PRN Reason: SBP > 150 AND DBP > 90 Last Admin: 12/13/17 07:06 Dose: 10 mg Sodium Chloride (Ns Inj) 1,000 mls @ 30 mls/hr IV.CONT .Q24H [facility] Last Admin: 12/12/17 18:27 Dose: 30 mls/hr Lorazepam (Ativan Inj) 0.5 mg IV.PUSH Q6H PRN PRN Reason: ANXIETY Midazolam HCl (Versed Inj) 1 mg IV.PUSH [employer] [facility] Stop: 12/16/17 14:14 Morphine Sulfate (Msir) 15 mg PO Q4H PRN PRN Reason: Pain 1-10 Morphine Sulfate (Morphine Inj) 2 mg IV.PUSH Q4H PRN PRN Reason: SEE LABEL COMMENTS Last Admin: 12/13/17 03:40 Dose: 2 mg Ondansetron HCl (Zofran Inj) 4 mg IV.PUSH Q6H PRN PRN Reason: NAUSEA Pantoprazole Sodium (Protonix Inj) 40 mg IV.PUSH Q12H [facility] Last Admin: 12/13/17 05:39 Dose: 40 mg Promethazine HCl (Phenergan Inj) 12.5 mg IM Q6H PRN PRN Reason: vomiting refractory to po Last Admin: 12/13/17 00:06 Dose: 12.5 mg Sodium Chloride (Ns Flush) 2 ml IV.FLUSH BID [facility] Last Admin: 12/12/17 22:08 Dose: Not Given Sodium Chloride (Ns Flush) 2 ml IV.FLUSH PRN PRN PRN Reason: FLUSH AFTER USING IV ACCESS Physical Exam Vital signs: Vital Signs 12/12/17 14:00 12/12/17 14:12 12/12/17 16:00 Temperature 98.3 F Pulse Rate 64 63 70 Respiratory Rate 20 Blood Pressure 168/83 H Pulse Oximetry 99 12/12/17 17:00 12/12/17 18:00 12/12/17 19:00 Temperature Pulse Rate 64 68 76 Respiratory Rate Blood Pressure Pulse Oximetry 12/12/17 20:00 12/12/17 21:00 12/12/17 22:00 Temperature 98.6 F Pulse Rate 76 96 H 80 Respiratory Rate 16 Blood Pressure 174/84 H Pulse Oximetry 97 12/12/17 23:00 12/12/17 23:30 12/13/17 00:00 Temperature 100.1 F H 101.9 F H Pulse Rate 78 70 84 Respiratory Rate 16 16 Blood Pressure 165/77 H 157/62 H Pulse Oximetry 97 98 12/13/17 01:00 12/13/17 02:00 12/13/17 03:00 Temperature 99.1 F Pulse Rate 84 72 68 Respiratory Rate 16 Blood Pressure 176/83 H Pulse Oximetry 97 12/13/17 04:00 12/13/17 05:00 12/13/17 06:00 Temperature Pulse Rate 76 79 67 Respiratory Rate Blood Pressure Pulse Oximetry Intake & Output 12/12/17 12/13/17 12/13/17 18:59 06:59 18:59 Intake Total 338.9 / 338.9 240 / 240 Output Total 600 / 600 Balance -261.1 / -261.1 240 / 240 Weight 89.9 kg Intake: IV 18.9 / 18.9 Nitroglycerin Drip Premix 50 mg 18.9 / 18.9 In 250 ml @ Per Protocol IV. CONT TITRATE PRN Rx#:[id number] Oral 120 / 120 240 / 240 Anesthesia Amount 200 / 200 Output: Emesis 600 / 600 Other: # Voids 3 # Urine Diapers 1 # Emeses 4 # Oral Regurgitations 6 - Constitutional no acute distress - Routine HEENT Exam Head: Present: normocephalic, atraumatic Eye: Present: EOMI, PERRL - Routine Neck Exam Present: supple, normal carotid upstroke - Routine Respiratory Exam Present: CTA bilaterally - Routine Cardiovascular Exam Present: RRR - Routine Abdominal Exam Comments: Mild epigastric pain with deep palpation, murphys sign negative. No distention, no guarding. - Routine Extremities Exam Comments: Right groin access dressing C/D/I - Routine Skin Exam Present: intact - Routine Neurological Exam Present: alert, oriented X3 - Routine Psychiatric Exam Present: normal affect, normal thought process Results 12/13/17 08:23 12/13/17 08:23 Cardiac Enzymes 12/12/17 Range/Units 17:35 AST 18 (15-37) U/L Coagulation 12/12/17 Range/Units 17:35 PT 10.6 (9.8-11.6) sec APTT 21.1 L (24.3-30.1) sec Comprehensive Metabolic Panel 12/12/17 Range/Units 17:35 Direct Bilirubin 0.2 (0.0-0.2) mg/dL Indirect Bilirubin 0.4 (0.0-0.8) mg/dL AST 18 (15-37) U/L ALT 22 (10-53) U/L Alkaline Phosphatase 81 (45-117) U/L Total Protein 7.2 D (6.4-8.2) g/dL Albumin 3.7 D (3.4-5.0) g/dL Intake and Output 12/12/17 12/13/17 12/13/17 22:59 06:59 14:59 Intake Total 218.9 / 218.9 240 / 240 Balance 218.9 / 218.9 240 / 240 Intake: IV 18.9 / 18.9 Nitroglycerin Drip Premix 50 mg 18.9 / 18.9 In 250 ml @ Per Protocol IV. CONT TITRATE PRN Rx#:[id number] Oral 240 / 240 Anesthesia Amount 200 / 200 Other: # Voids 3 # Urine Diapers 1 Weight 89.9 kg - Imaging and Cardiology Imaging: Impressions Chest X-Ray 12/12/17 00:00 CONCLUSION: No acute cardiopulmonary disease. Pulmonary Perfusion Imaging 12/12/17 20:24 CONCLUSION: 1. Low probability pulmonary embolism. Cardiac cath: report reviewed EKG results: report reviewed Assessment and Plan - Plan NSTEMI- cardiac cath negative for coronary artery disease Chest pain- PE and WA ruled out Hypertension Intractable vomiting Abdominal pain Fever Progressive fatigue Plan: Continue IVF Vasotec and hydralazine PRN for SBP > 150 or DBP > 90 Antiemetics CBC, CMP, Influenza, Errol Garcia Pending EGD today at 1500 The patient was seen and evaluated by Dr Vaughan who completed face to face encounter, physical exam and participated in evaluation and management. The exam, history, and the medical decision-making described in the above note were completed with the assistance of the mid-level provider. I reviewed and agree with the findings presented. I attest that I had a [id number] encounter with the patient on the same day, and personally performed and documented my assessment and findings in the medical record, discussed in detail with Dr Conner and daughter
[2017-12-13 08:45] LABS: Baso % (Auto) 0.1 % (0.0-2.0); Hematocrit 36.4 % (35.0-46.0); Hemoglobin 12.8 gm/dL (11.6-15.3); Lymph # (Auto) 1.3 th/mm3 (1.0-4.8); Lymph % (Auto) 12.2 % (9.0-44.0); Mean Corpuscular HGB Conc 35.1 % (32.0-36.0); Mean Corpuscular Hemoglobin 29.9 pg (27.0-34.0); Mean Corpuscular Volume 85.1 fL (80.0-100.0); Mean Platelet Volume 7.9 fL (7.0-11.0); Mono # (Auto) 0.7 th/mm3 (0.0-0.9); Mono % (Auto) 6.6 % (0.0-8.0); Neut # (Auto) 8.8 th/mm3 (1.8-7.7); Neut % (Auto) 81.1 % (16.0-70.0); Platelet Count 315 th/mm3 (150-450); Red Blood Count 4.28 mil/mm3 (4.00-5.30); Red Cell Distribution Width 12.9 % (11.6-17.2); White Blood Count 10.8 th/mm3 (4.0-11.0)
[2017-12-13] MEDS: amLODIPine 5 MG Tablet PO SCH (09:09)
[2017-12-13 09:13] LABS: Alanine Aminotransferase 21 U/L (10-53); Albumin 3.5 g/dL (3.4-5.0); Alkaline Phosphatase 74 U/L (45-117); Anion Gap 10 meq/L (5-15); Aspartate Aminotransferase 34 U/L (15-37); Blood Urea Nitrogen 6 mg/dL (7-18); Calcium 8.6 mg/dL (8.5-10.1); Carbon Dioxide 23.9 meq/L (21.0-32.0); Chloride 105 meq/L (98-107); Glomerular Filtration Rate Greater Than 89 mL/min (>89); Glucose,Random 104 mg/dL (74-106); Sodium 139 meq/L (136-145); Total Protein 6.8 g/dL (6.4-8.2)
[2017-12-13 09:19] LABS: Potassium 2.8 meq/L (3.5-5.1)
[2017-12-13] MEDS ORDERED: Potassium Chloride Inj 20 MEQ, Magnesium Sulfate Inj 2 GM in Sod Chloride 0.9% Inj 1,00... IV.SIG ONE (11:00)
[2017-12-13] MEDS: Mag Sulf 1 gm/100 ml Premix 100 ML IV.SIG SCH ×2 (11:53→17:33)
[2017-12-13] MEDS ORDERED: Potassium Chlor 20 mEq Premix 20 MEQ/100 ML PIGGYBACK IV.SIG SCH (12:00)
[2017-12-13] MEDS ORDERED: Lidocaine 2% 100 MG/5 ML Syringe ONE (15:27)
[2017-12-13] MEDS ORDERED: Atropine Inj 1 MG/10 ML Syringe ONE (15:27)
[2017-12-13] MEDS ORDERED: Lidocaine PF 1% Inj 5 ML Syringe OTHER ONE (15:50)
[2017-12-13] MEDS ORDERED: Succinylcholine Inj 100 MG/5 ML Syringe IV.PUSH ONE (15:50)
[2017-12-13] MEDS ORDERED: Glycopyrrolate Inj 1 MG/5 ML Syringe IV.PUSH ONE (15:50)
--- NOTE | 2017-12-13 16:18 | GIPROC ---
[facility] [address] [facility]. [facility], [address] EGD PROCEDURE REPORT EXAM DATE: 12/13/2017 PATIENT NAME: Maryam Xiong MR #: [id number] BIRTHDATE: 1960 ATTENDING: Pauline Kuhn MD ORDER #: [id number] ASPHALT RAKER: Darrell Sethi Power, Victoria, and Swati Rivas STATUS: inpatient INDICATIONS: The patient is a 57 yr old female here for an EGD due to epigastric abdominal pain, nausea, and vomiting PROCEDURE PERFORMED: EGD w/ biopsy MEDICATIONS: None and Per Anesthesia. TOPICAL ANESTHETIC: CONSENT: The patient understands the risks and benefits of the procedure and understands that these risks include, but are not limited to: sedation, allergic reaction, infection, perforation and/or bleeding. Alternative means of evaluation and treatment include, among others: physical exam, x-rays, and/or surgical intervention. The patient elects to proceed with this endoscopic procedure. medical equipment was checked for proper function. Hand hygiene and appropriate measures for infection prevention was taken. After the risks, benefits and alternatives of the procedure were thoroughly explained, Informed consent was verified, confirmed and timeout was successfully executed by the treatment team. The patient was anesthetized with topical anesthesia and the Pentax EG-[id number] endoscope was introduced through the mouth and advanced to the second portion of the duodenum. Retroflexed views revealed no abnormalities The gastroscope was then slowly withdrawn and removed. ESOPHAGUS: There was LA Class A esophagitis noted. A biopsy was performed using cold forceps. Sample sent for histology. STOMACH: There was erythematous moderate and erosive gastritis in the gastric antrum. A biopsy was performed using cold forceps. Sample sent for histology. DUODENUM: The duodenal mucosa appeared normal in the bulb and second portion of the duodenum. ADVERSE EVENTS: There were no complications. IMPRESSIONS: 1. There was LA Class A esophagitis noted; biopsy was performed 2. There was erythematous gastritis in the gastric antrum; biopsy was performed 3. Normal duodenal mucosa in the bulb and second portion of the duodenum 4. Retroflexed views revealed no abnormalities RECOMMENDATIONS: 1. Await biopsy results. Biopsy results will not be ready for 7-10 days. If you don't hear from us in two weeks, call our office for biopsy results. 2. Anti-reflux regimen 3. Continue PPI 4. Avoid NSAIDS 5. HIDA scan PATIENT CONDITION: stable DISPOSITION: Inpatient REPEAT EXAM: Return 1 year EGD pending biopsy results Pauline Kuhn MD eSigned: Pauline Kuhn MD 12/13/2017 4:17 PM cc: PATIENT NAME: Maryam Xiong MR#: [id number]
--- NOTE | 2017-12-13 17:10 | P.PN ---
Subjective Interval history: Nursing reports that the patient's potassium came back at 2.8 today. Potassium KCl was apparently burning the patient. patient herself says that she has still had multiple rounds of emesis this morning. But better than yesterday in terms of frequency. Patient says she still has not had a bowel movement. yesterday's relistor dose is not charted as being given even though it was ordered for yesterday. Physical Exam Vital signs: Vital Signs 12/12/17 18:00 12/12/17 19:00 12/12/17 20:00 Temperature 98.6 F Pulse Rate 68 76 76 Respiratory Rate 16 Blood Pressure 174/84 H Pulse Oximetry 97 12/12/17 21:00 12/12/17 22:00 12/12/17 23:00 Temperature 100.1 F H Pulse Rate 96 H 80 78 Respiratory Rate 16 Blood Pressure 165/77 H Pulse Oximetry 97 12/12/17 23:30 12/13/17 00:00 12/13/17 01:00 Temperature 101.9 F H Pulse Rate 70 84 84 Respiratory Rate 16 Blood Pressure 157/62 H Pulse Oximetry 98 12/13/17 02:00 12/13/17 03:00 12/13/17 04:00 Temperature 99.1 F Pulse Rate 72 68 76 Respiratory Rate 16 Blood Pressure 176/83 H Pulse Oximetry 97 12/13/17 05:00 12/13/17 06:00 12/13/17 07:00 Temperature Pulse Rate 79 67 79 Respiratory Rate Blood Pressure Pulse Oximetry 12/13/17 08:00 12/13/17 09:00 12/13/17 09:14 Temperature 99.4 F Pulse Rate 76 76 Respiratory Rate 17 17 Blood Pressure 158/73 H Pulse Oximetry 99 12/13/17 10:00 12/13/17 11:00 12/13/17 12:00 Temperature 99.0 F Pulse Rate 82 83 78 Respiratory Rate 16 Blood Pressure 156/87 H Pulse Oximetry 97 Intake & Output 12/12/17 12/13/17 12/13/17 18:59 06:59 18:59 Intake Total 338.9 / 338.9 240 / 240 400 / 400 Output Total 600 / 600 Balance -261.1 / -261.1 240 / 240 400 / 400 Weight 89.9 kg Intake: IV 18.9 / 18.9 Nitroglycerin Drip Premix 50 mg 18.9 / 18.9 In 250 ml @ Per Protocol IV. CONT TITRATE PRN Rx#:[id number] Oral 120 / 120 240 / 240 Anesthesia Amount 200 / 200 400 / 400 Output: Emesis 600 / 600 Other: # Voids 3 # Urine Diapers 1 # Emeses 4 # Oral Regurgitations 6 Narrative: Heart sounds regular rate rhythm, no murmurs Clear lungs bilaterally, unlabored breathing Abdomen is diffusely tender to mild extent Results - Labs CBC & Chem 7: 12/20/17 04:47 12/21/17 05:26 Laboratory Results - last 24 hr 12/12/17 12/12/17 12/12/17 17:35 17:35 17:35 WBC RBC Hgb Hct MCV MCH MCHC RDW Plt Count MPV Neut % (Auto) Lymph % (Auto) Pierce % (Auto) Eos % (Auto) Baso % (Auto) Neut # (Auto) Lymph # (Auto) Pierce # (Auto) Eos # (Auto) Baso # (Auto) WBC Differential Differential Comment PT 10.6 INR 1.0 APTT 21.1 L D-Dimer Quant (PE/DVT) Sodium Potassium Chloride Carbon Dioxide Anion Gap BUN Creatinine Estimated GFR Random Glucose Calcium Magnesium 1.4 L Total Bilirubin 0.6 Direct Bilirubin 0.2 Indirect Bilirubin 0.4 AST 18 ALT 22 Alkaline Phosphatase 81 Total Protein 7.2 D Albumin 3.7 D Amylase 50 Lipase 64 L 12/12/17 12/13/17 12/13/17 17:35 06:32 08:23 WBC RBC Hgb Hct MCV MCH MCHC RDW Plt Count MPV Neut % (Auto) Lymph % (Auto) Pierce % (Auto) Eos % (Auto) Baso % (Auto) Neut # (Auto) Lymph # (Auto) Pierce # (Auto) Eos # (Auto) Baso # (Auto) WBC Differential Differential Comment PT INR APTT D-Dimer Quant (PE/DVT) 0.81 H Sodium Cancelled 139 Potassium Cancelled 2.8 L* D Chloride Cancelled 105 Carbon Dioxide Cancelled 23.9 Anion Gap Cancelled 10 BUN Cancelled 6 L Creatinine Cancelled 0.63 Estimated GFR Cancelled Greater than 89 Random Glucose Cancelled 104 Calcium Cancelled 8.6 D Magnesium Total Bilirubin 0.6 Direct Bilirubin Indirect Bilirubin AST 34 ALT 21 Alkaline Phosphatase 74 Total Protein 6.8 Albumin 3.5 Amylase Lipase 12/13/17 08:23 WBC 10.8 RBC 4.28 Hgb 12.8 Hct 36.4 MCV 85.1 MCH 29.9 MCHC 35.1 RDW 12.9 Plt Count 315 MPV 7.9 Neut % (Auto) 81.1 H Lymph % (Auto) 12.2 Pierce % (Auto) 6.6 Eos % (Auto) 0.0 Baso % (Auto) 0.1 Neut # (Auto) 8.8 H Lymph # (Auto) 1.3 Pierce # (Auto) 0.7 Eos # (Auto) 0.0 Baso # (Auto) 0.0 WBC Differential . Differential Comment Auto diff final PT INR APTT D-Dimer Quant (PE/DVT) Sodium Potassium Chloride Carbon Dioxide Anion Gap BUN Creatinine Estimated GFR Random Glucose Calcium Magnesium Total Bilirubin Direct Bilirubin Indirect Bilirubin AST ALT Alkaline Phosphatase Total Protein Albumin Amylase Lipase - Imaging Impressions Chest X-Ray 12/12/17 00:00 CONCLUSION: No acute cardiopulmonary disease. Pulmonary Perfusion Imaging 12/12/17 20:24 CONCLUSION: 1. Low probability pulmonary embolism. Assessment and Plan - Plan 57-year-old white female admitted for nausea vomiting chest pain Chest pain Status post cardiac catheterization with no ACS noted -VQ scan reports low probability for embolism GI consulted, anticipate EGD sometime later today Nausea vomiting -LFTs are stable, attempting EGD today -We will attempt to stick to both oral and IV Phenergan as tolerated, will try to avoid Zofran as this can worsen constipation, will definitely try to avoid Reglan as this could back fire as well -One-time dose of Relistor and then start with oral laxatives after EGD Chronic pain Continue home pain medications, and if unable to tolerate p.o. meds, resort to IV as needed Scrape -on leg; local wound care nayanx
[2017-12-13] MEDS: KCL 20 mEq/NACL 0.45% Inj 1,000 ML IV.CONT SCH (17:32)
--- NOTE | 2017-12-13 17:45 | P.CONID ---
History of Present Illness Service: Infectious disease Consult date: 12/13/17 Requesting Physician: Ilana Vaughan Reason for Consult: Evaluate patient's left leg wound Primary Care Provider: UNKNOWN History of Present Illness: Patient seen and examined. Records reviewed. Patient is a 57-year-old female, presented to the hospital with 2-3 day history of nausea and vomiting. She is also had decrease appetite due to the vomiting. On the day of admission she had chest pain so she was brought into the hospital for further evaluation and treatment. Cardiac workup currently did not reveal any NH. Patient had cardiac cath and it was okay. GI had evaluated the patient, and upper endoscopy showed evidence of some esophagitis and gastritis. Patient still having nausea and vomiting. She denies any significant abdominal pain. She has not had any fever chills or sweats. She has not had any prior problem with nausea and vomiting. Patient was found to have a left leg wound, and he had some green drainage. Infectious disease consultation has been requested to evaluate the left leg wound. Patient apparently had a fall about a week ago and sustained some abrasions on her left leg. She has been doing her own wound care, she keeps the wound open to air during the day, and at night she puts Neosporin and she covers the wound. She has not really noted any significant pain or redness in her left leg or left thigh. Here in the hospital she is afebrile. Her WBC is normal. Review of Systems Constitutional: Reports anorexia, Denies chills, Denies fever(s), Denies headache(s) Eyes: Denies discharge, Denies dry eyes Ears, Nose, Mouth, and Throat: Denies difficulty swallowing, Denies ear pain, Denies facial pain, Denies nasal discharge, Denies sore throat Cardiovascular: Reports chest pain, Denies shortness of breath Respiratory: Denies chest congestion, Denies cough, Denies shortness of breath Gastrointestinal: Reports nausea, Reports vomiting, Denies abdominal pain, Denies loose stools, Denies pain with swallowing Genitourinary: Denies difficulty urinating, Denies painful urination Musculoskeletal: Denies joint pain, Denies joint swelling Skin/Breast: Reports sores, Denies rash Neurologic: Denies localized weakness PMF - History History Provided By: Patient, Family Member - Medical History Medical History: Medical History (Last Reviewed 12/13/17 @ 17:40 by Kareen Powell MD) Barretts esophagus Chiari malformation Hx of hysterectomy - Surgical History Surgical History: Surgical History (Last Reviewed 12/13/17 @ 17:40 by Kareen Powell MD) Hx of neck surgery Hx of rotator cuff surgery - Family History Family History: Family History (Last Reviewed 12/13/17 @ 17:40 by Kareen Powell MD) Other Hypertension - Tobacco History Smoking Status: Never smoker - Alcohol History How Often Do You Have a Drink Containing Alcohol: Never - Substance Use History Substance History: No History of Abuse Medications and Allergies Active Medications: Active Medications Acetaminophen (Tylenol) 650 mg PO Q4H PRN PRN Reason: FEVER Last Admin: 12/13/17 00:31 Dose: 650 mg Amlodipine Besylate (Norvasc) 5 mg PO DAILY [facility] Last Admin: 12/13/17 09:09 Dose: 5 mg Collagenase (Santyl Oint) 1 applicatio TOPICAL DAILY [facility] Diazepam (Valium) 5 mg PO [employer] [facility] Stop: 12/16/17 14:14 Diphenhydramine HCl (Benadryl) 50 mg PO [employer] [facility] Stop: 12/16/17 14:14 Diphenhydramine HCl (Benadryl Inj) 25 mg IV.PUSH [employer] [facility] Stop: 12/16/17 14:59 Enalaprilat (Vasotec Inj) 1.25 mg IV.PUSH Q8H PRN PRN Reason: HYPERTENSION Last Admin: 12/13/17 03:11 Dose: 1.25 mg Fentanyl Citrate (Fentanyl Inj) 50 mcg IV.PUSH [employer] [facility] Stop: 12/16/17 14:14 Hydralazine HCl (Apresoline Inj) 10 mg IV.PUSH Q8H PRN PRN Reason: SBP > 150 or DBP > 90 Last Admin: 12/13/17 07:06 Dose: 10 mg Potassium Chloride/Sodium Chloride (Potassium Chlor 20 Meq/Nacl 0.45% Inj) 1, 000 mls @ 42 mls/hr IV.CONT .[id number] [facility] Last Admin: 12/13/17 17:32 Dose: 42 mls/hr Lorazepam (Ativan Inj) 0.5 mg IV.PUSH Q6H PRN PRN Reason: ANXIETY Midazolam HCl (Versed Inj) 1 mg IV.PUSH [employer] [facility] Stop: 12/16/17 14:14 Morphine Sulfate (Msir) 15 mg PO Q4H PRN PRN Reason: Pain 1-10 Morphine Sulfate (Morphine Inj) 2 mg IV.PUSH Q4H PRN PRN Reason: SEE LABEL COMMENTS Last Admin: 12/13/17 17:31 Dose: 2 mg Ondansetron HCl (Zofran Inj) 4 mg IV.PUSH Q6H PRN PRN Reason: NAUSEA Pantoprazole Sodium (Protonix Inj) 40 mg IV.PUSH Q12H [facility] Last Admin: 12/13/17 05:39 Dose: 40 mg Promethazine HCl (Phenergan Inj) 12.5 mg IM Q6H PRN PRN Reason: vomiting refractory to po Last Admin: 12/13/17 17:31 Dose: 12.5 mg Sodium Chloride (Ns Flush) 2 ml IV.FLUSH BID [facility] Last Admin: 12/13/17 09:09 Dose: Not Given Sodium Chloride (Ns Flush) 2 ml IV.FLUSH PRN PRN PRN Reason: FLUSH AFTER USING IV ACCESS Allergies Allergy/AdvReac Type Severity Reaction Status Date / Time latex Allergy Severe Swelling Verified 12/12/17 10:31 Home Medications Medication Instructions Recorded Confirmed Type estradiol 2 mg PO DAILY 12/12/17 12/12/17 History morphine 15 mg PO Q4-6H PRN 12/12/17 12/12/17 History oxycodone 10 mg PO Q4-6H PRN 12/12/17 12/12/17 History pantoprazole [Protonix] 20 mg PO DAILY 12/12/17 12/12/17 History Exam Vital signs: Vital Signs 12/12/17 18:00 12/12/17 19:00 12/12/17 20:00 Temperature 98.6 F Pulse Rate 68 76 76 Respiratory Rate 16 Blood Pressure 174/84 H Pulse Oximetry 97 12/12/17 21:00 12/12/17 22:00 12/12/17 23:00 Temperature 100.1 F H Pulse Rate 96 H 80 78 Respiratory Rate 16 Blood Pressure 165/77 H Pulse Oximetry 97 12/12/17 23:30 12/13/17 00:00 12/13/17 01:00 Temperature 101.9 F H Pulse Rate 70 84 84 Respiratory Rate 16 Blood Pressure 157/62 H Pulse Oximetry 98 12/13/17 02:00 12/13/17 03:00 12/13/17 04:00 Temperature 99.1 F Pulse Rate 72 68 76 Respiratory Rate 16 Blood Pressure 176/83 H Pulse Oximetry 97 12/13/17 05:00 12/13/17 06:00 12/13/17 07:00 Temperature Pulse Rate 79 67 79 Respiratory Rate Blood Pressure Pulse Oximetry 12/13/17 08:00 12/13/17 09:00 12/13/17 09:14 Temperature 99.4 F Pulse Rate 76 76 Respiratory Rate 17 17 Blood Pressure 158/73 H Pulse Oximetry 99 12/13/17 10:00 12/13/17 11:00 12/13/17 12:00 Temperature 99.0 F Pulse Rate 82 83 78 Respiratory Rate 16 Blood Pressure 156/87 H Pulse Oximetry 97 Intake & Output 12/12/17 12/13/17 12/13/17 18:59 06:59 18:59 Intake Total 338.9 / 338.9 240 / 240 500 / 500 Output Total 600 / 600 Balance -261.1 / -261.1 240 / 240 500 / 500 Weight 89.9 kg Intake: IV 18.9 / 18.9 100 / 100 Nitroglycerin Drip Premix 50 mg 18.9 / 18.9 In 250 ml @ Per Protocol IV. CONT TITRATE PRN Rx#:[id number] Magnesium Sulfate 1 gm/D5W 100 100 / 100 ml Premix 100 ML @ 100 mls/hr IV.SIG Q1H [facility]W Rx#:[id number] Oral 120 / 120 240 / 240 Anesthesia Amount 200 / 200 400 / 400 Output: Emesis 600 / 600 Other: # Voids 3 # Urine Diapers 1 # Emeses 4 # Oral Regurgitations 6 Narrative: Physical Examination GENERAL: Patient is a well-nourished, well-developed female, awake and alert , not in respiratory distress. SKIN: Cool and dry. No generalized rash, no ecchymoses and no evidence of embolic lesions. HEAD: Atraumatic. Normocephalic. No temporal wasting, or tenderness. EYES: Lewellen conjunctiva. No petechia or hemorrhage. Pupils equal, round and reactive to light. Extraocular movements full and intact. No scleral icterus. No injection or drainage. EARS, NOSE AND THROAT: Nose without bleeding or purulent nasal discharge. No sinus tenderness. Mucous membranes pink and moist. No oral lesions noted. No exudate. No oral thrush. NECK: Trachea midline. Supple and not tender, no meningeal signs CARDIOVASCULAR: Regular rate and rhythm. No murmurs, rubs or gallops heard RESPIRATORY: Clear to auscultation. Breath sounds equal bilaterally. No rales , wheezing or rhonchi ABDOMEN: Soft, non-tender, nondistended. Bowel sounds present and normoactive. No guarding. No rebound. No organomegaly. EXTREMITIES: No clubbing, cyanosis, or edema. No joint effusion, has good ROM. No calf tenderness. LLE - there is a superficial wound on upper anterior leg with pink base, no significant periwound erythema, no purulence at wound, no lymphangitis, no odor NEUROLOGICAL: Awake and alert. Cranial nerves grossly intact. Motor grossly within normal limits. PSYCHIATRIC: Normal affect, calm and cooperative. LINE: No evidence of infection Results - Labs CBC & Chem 7: 12/13/17 08:23 12/13/17 08:23 Labs: Laboratory Results - last 24 hr 12/12/17 12/12/17 12/12/17 17:35 17:35 17:35 WBC RBC Hgb Hct MCV MCH MCHC RDW Plt Count MPV Neut % (Auto) Lymph % (Auto) [place] % (Auto) Eos % (Auto) Baso % (Auto) Neut # (Auto) Lymph # (Auto) [place] # (Auto) Eos # (Auto) Baso # (Auto) WBC Differential Differential Comment PT 10.6 INR 1.0 APTT 21.1 L D-Dimer Quant (PE/DVT) Sodium Potassium Chloride Carbon Dioxide Anion Gap BUN Creatinine Estimated GFR Random Glucose Calcium Magnesium 1.4 L Total Bilirubin 0.6 Direct Bilirubin 0.2 Indirect Bilirubin 0.4 AST 18 ALT 22 Alkaline Phosphatase 81 Total Protein 7.2 D Albumin 3.7 D Amylase 50 Lipase 64 L 12/12/17 12/13/17 12/13/17 17:35 06:32 08:23 WBC RBC Hgb Hct MCV MCH MCHC RDW Plt Count MPV Neut % (Auto) Lymph % (Auto) [place] % (Auto) Eos % (Auto) Baso % (Auto) Neut # (Auto) Lymph # (Auto) [place] # (Auto) Eos # (Auto) Baso # (Auto) WBC Differential Differential Comment PT INR APTT D-Dimer Quant (PE/DVT) 0.81 H Sodium Cancelled 139 Potassium Cancelled 2.8 L* D Chloride Cancelled 105 Carbon Dioxide Cancelled 23.9 Anion Gap Cancelled 10 BUN Cancelled 6 L Creatinine Cancelled 0.63 Estimated GFR Cancelled Greater than 89 Random Glucose Cancelled 104 Calcium Cancelled 8.6 D Magnesium Total Bilirubin 0.6 Direct Bilirubin Indirect Bilirubin AST 34 ALT 21 Alkaline Phosphatase 74 Total Protein 6.8 Albumin 3.5 Amylase Lipase 12/13/17 08:23 WBC 10.8 RBC 4.28 Hgb 12.8 Hct 36.4 MCV 85.1 MCH 29.9 MCHC 35.1 RDW 12.9 Plt Count 315 MPV 7.9 Neut % (Auto) 81.1 H Lymph % (Auto) 12.2 V[place] % (Auto) 6.6 Eos % (Auto) 0.0 Baso % (Auto) 0.1 Neut # (Auto) 8.8 H Lymph # (Auto) 1.3 [place] # (Auto) 0.7 Eos # (Auto) 0.0 Baso # (Auto) 0.0 WBC Differential . Differential Comment Auto diff final PT INR APTT D-Dimer Quant (PE/DVT) Sodium Potassium Chloride Carbon Dioxide Anion Gap BUN Creatinine Estimated GFR Random Glucose Calcium Magnesium Total Bilirubin Direct Bilirubin Indirect Bilirubin AST ALT Alkaline Phosphatase Total Protein Albumin Amylase Lipase - Imaging Impressions Chest X-Ray 12/12/17 00:00 CONCLUSION: No acute cardiopulmonary disease. Pulmonary Perfusion Imaging 12/12/17 20:24 CONCLUSION: 1. Low probability pulmonary embolism. Assessment and Plan - Plan Impression Superficial wound L leg, looks like an abrasion, no surrounding cellulitis Nausea and vomiting - has esophagitis and gastritis on EGD Normal cath Recommendation Wound care No systemic Abx indicated at this time Needs good wound care and followup to ensure healing No need to culture wound Thank you for this consultation Please call if you have any further ID issue or question Explained plan to patient and daughter D/W RN
[2017-12-13] MEDS: Collagenase Oint 30 GM Tube TOPICAL SCH (20:53)
[2017-12-13] MEDS ORDERED: Methylnaltrexone Inj 12 MG/0.6 ML Vial SQ ONE (21:00)
[2017-12-13] MEDS: Bisacodyl 10 MG Supp RECTAL SCH (21:39)
[2017-12-14] MEDS: Morphine Sulfate Inj 2 MG/ML Vial IV.PUSH PRN ×4 (00:29→19:52)
[2017-12-14 01:16] LABS: EBV Virus Capsid Ag IgG Ab Positive (Negative); EBV Virus Capsid Ag IgM Ab Negative (Negative)
[2017-12-14] MEDS: hydrALAZINE HCl Inj 20 MG/ML Vial IV.PUSH PRN ×2 (04:01→14:27)
[2017-12-14] MEDS: Pantoprazole Inj 40 MG Vial IV.PUSH SCH ×2 (05:16→19:51)
[2017-12-14] MEDS: Acetaminophen 325 MG Tablet PO PRN ×2 (06:10→23:23)
[2017-12-14 07:00] LABS: Baso % (Auto) 0.1 % (0.0-2.0); Hematocrit 39.6 % (35.0-46.0); Hemoglobin 13.6 gm/dL (11.6-15.3); Lymph # (Auto) 1.4 th/mm3 (1.0-4.8); Lymph % (Auto) 11.8 % (9.0-44.0); Mean Corpuscular HGB Conc 34.5 % (32.0-36.0); Mean Corpuscular Hemoglobin 29.8 pg (27.0-34.0); Mean Corpuscular Volume 86.4 fL (80.0-100.0); Mean Platelet Volume 8.2 fL (7.0-11.0); Mono # (Auto) 1.1 th/mm3 (0.0-0.9); Mono % (Auto) 8.8 % (0.0-8.0); Neut # (Auto) 9.6 th/mm3 (1.8-7.7); Neut % (Auto) 79.3 % (16.0-70.0); Platelet Count 354 th/mm3 (150-450); Red Blood Count 4.58 mil/mm3 (4.00-5.30); Red Cell Distribution Width 13.4 % (11.6-17.2); White Blood Count 12.1 th/mm3 (4.0-11.0)
[2017-12-14 07:13] LABS: Anion Gap 10 meq/L (5-15); Blood Urea Nitrogen 8 mg/dL (7-18); Calcium 8.7 mg/dL (8.5-10.1); Carbon Dioxide 22.6 meq/L (21.0-32.0); Chloride 103 meq/L (98-107); Glomerular Filtration Rate Greater Than 89 mL/min (>89); Glucose,Random 106 mg/dL (74-106); Sodium 136 meq/L (136-145)
[2017-12-14] MEDS ORDERED: Lidocaine 2% 100 MG/5 ML Syringe ONE (09:01)
[2017-12-14] MEDS ORDERED: Atropine Inj 1 MG/10 ML Syringe ONE (09:01)
[2017-12-14] MEDS ORDERED: Sincalide Inj 5 MCG Vial ONE (10:08)
--- NOTE | 2017-12-14 11:24 | NM ---
EXAM DATE: 12/14/2017 9:14 AM EDT AGE/SEX: 57 years / Female INDICATIONS: Nasuea,vomiting and abdominal pain. CLINICAL DATA: This is the patient's initial encounter. Patient reports that signs and symptoms have been present for 2 days and indicates a pain score of 3/10. MEDICAL/SURGICAL HISTORY: . Barretts esophagus and Chiari malformation. Hysterectomy. Neck melba jeovanny. COMPARISON: No prior exams available for comparison. DOSE: 4.4 mCi Tc-99m mebrofenin i.v. Medication: 1.8 mcg Cholecystokinin IV No symptomatic response Cholecystokinin was administered by slow infusion over 8 minutes beginning at 60 minutes. TECHNIQUE: Following the intravenous administration of radiotracer, dynamic sequential images were pe rformed with continuous acquisition. Time-activity curves were generated. FINDINGS: Hepatic Kinetics: There is prompt uptake of radiotracer in the liver. No focal defects are seen. Ther e is normal rate of washout from the hepatic parenchyma. Biliary Clearance: Activity is first seen in the extrahepatic biliary system at 15 minutes. There is normal excretion into the small bowel. Gallbladder: Activity is first seen in the gallbladder at 20 minutes. Post-CCK: After CCK administration, there is emptying of the gallbladder with a greater than 70%% eje ction fraction. Common bile duct kinetics are normal and there is no evidence of biliary obstruction. No symptomatic response after cholecystokinin infusion. Biliary-Enteric Reflux: None observed. CONCLUSION: 1. Negative examination. No evidence for cystic duct or biliary ductal obstruction. Electronically signed by: Salinas Rahman MD 12/14/2017 11:22 AM EDT
[2017-12-14] MEDS: amLODIPine 5 MG Tablet PO SCH (12:08)
[2017-12-14] MEDS ORDERED: Vancomycin Consult Pharmacy OTHER PRN (13:18)
[2017-12-14] MEDS: KCL 20 mEq/NACL 0.45% Inj 1,000 ML IV.CONT SCH (14:17)
--- NOTE | 2017-12-14 14:41 | P.PNGI ---
Subjective Interval history: Pt resting in bed, daughter at bedside. Continues to have nausea and vomiting. Reports some abdominal tightness prior to emesis but denies any abdominal pain. No BM in a few days, states stools are irregular at home from her IBD. Currently being worked up for possible meningitis, complaining of headache and neck pain (she thinks secondary to previous neck surgery). Also having fevers, ID following. <Alba Dubon - Last Filed: 12/14/17 14:32> Physical Exam Vital signs: Vital Signs 12/13/17 16:30 12/13/17 16:45 12/13/17 17:00 Temperature 98.9 F 98.2 F Pulse Rate 89 73 78 Respiratory Rate 18 21 18 Blood Pressure 132/65 140/67 140/60 Pulse Oximetry 100 98 96 12/13/17 19:00 12/13/17 21:37 12/13/17 23:00 Temperature 98.3 F 99.7 F H Pulse Rate 75 103 H Respiratory Rate 20 20 Blood Pressure 168/89 H 142/68 H 134/72 Pulse Oximetry 98 97 12/14/17 00:00 12/14/17 01:00 12/14/17 02:00 Temperature Pulse Rate 84 100 H 83 Respiratory Rate Blood Pressure Pulse Oximetry 12/14/17 03:00 12/14/17 04:00 12/14/17 04:43 Temperature 99.0 F Pulse Rate 68 68 Respiratory Rate 16 Blood Pressure 168/87 H 147/70 H Pulse Oximetry 98 12/14/17 05:00 12/14/17 06:00 12/14/17 06:04 Temperature 100.9 F H Pulse Rate 82 80 Respiratory Rate Blood Pressure 143/79 H Pulse Oximetry 12/14/17 07:06 Temperature 99.4 F Pulse Rate Respiratory Rate Blood Pressure Pulse Oximetry Intake & Output 12/13/17 12/14/17 12/14/17 18:59 06:59 18:59 Intake Total 500 / 500 340 / 340 1000 / 1000 Balance 500 / 500 340 / 340 1000 / 1000 Weight 89.4 kg Intake: IV 100 / 100 100 / 100 1000 / 1000 Potassium Chlor 20 mEq/NACL 0. 1000 / 1000 45% Inj 1,000 ML @ 42 mls/hr IV .CONT .[id number] REPLACED BY [facility] Rx#:[id number] Magnesium Sulfate 1 gm/D5W 100 100 / 100 ml Premix 100 ML @ 100 mls/hr IV.SIG Q1H [facility] Rx#:[id number] Oral 240 / 240 Anesthesia Amount 400 / 400 Other: # Voids 4 Date of Last Bowel Movement 12/14/17 # Bowel Movements 1 - Constitutional no acute distress - Routine HEENT Exam Head: Present: normocephalic, atraumatic - Routine Respiratory Exam Absent: accessory muscle use - Routine Cardiovascular Exam Present: RRR - Routine Abdominal Exam Present: soft, normoactive bowel sounds. Absent: tenderness, distended - Routine Skin Exam Present: dry, warm - Routine Neurological Exam Present: alert, oriented X3 <[email or web address] - Last Filed: 12/14/17 14:32> Vital signs: Vital Signs 12/13/17 16:30 12/13/17 16:45 12/13/17 17:00 Temperature 98.9 F 98.2 F Pulse Rate 89 73 78 Respiratory Rate 18 21 18 Blood Pressure 132/65 140/67 140/60 Pulse Oximetry 100 98 96 12/13/17 19:00 12/13/17 21:37 12/13/17 23:00 Temperature 98.3 F 99.7 F H Pulse Rate 75 103 H Respiratory Rate 20 20 Blood Pressure 168/89 H 142/68 H 134/72 Pulse Oximetry 98 97 12/14/17 00:00 12/14/17 01:00 12/14/17 02:00 Temperature Pulse Rate 84 100 H 83 Respiratory Rate Blood Pressure Pulse Oximetry 12/14/17 03:00 12/14/17 04:00 12/14/17 04:43 Temperature 99.0 F Pulse Rate 68 68 Respiratory Rate 16 Blood Pressure 168/87 H 147/70 H Pulse Oximetry 98 12/14/17 05:00 12/14/17 06:00 12/14/17 06:04 Temperature 100.9 F H Pulse Rate 82 80 Respiratory Rate Blood Pressure 143/79 H Pulse Oximetry 12/14/17 07:06 Temperature 99.4 F Pulse Rate Respiratory Rate Blood Pressure Pulse Oximetry Intake & Output 12/13/17 12/14/17 12/14/17 18:59 06:59 18:59 Intake Total 500 / 500 340 / 340 1000 / 1000 Balance 500 / 500 340 / 340 1000 / 1000 Weight 89.4 kg Intake: IV 100 / 100 100 / 100 1000 / 1000 Potassium Chlor 20 mEq/NACL 0. 1000 / 1000 45% Inj 1,000 ML @ 42 mls/hr IV .CONT .[id number] REPLACED BY [facility] Rx#:[id number] Magnesium Sulfate 1 gm/D5W 100 100 / 100 ml Premix 100 ML @ 100 mls/hr IV.SIG Q1H REPLACED BY [facility] Rx#:[id number] Oral 240 / 240 Anesthesia Amount 400 / 400 Other: # Voids 4 Date of Last Bowel Movement 12/14/17 # Bowel Movements 1 <Pauline Kuhn - Last Filed: 12/14/17 15:41> Results - Labs CBC & Chem 7: 12/14/17 05:57 12/14/17 05:57 Laboratory Results - last 24 hr 12/13/17 12/14/17 12/14/17 08:23 05:57 05:57 WBC 12.1 H RBC 4.58 Hgb 13.6 Hct 39.6 MCV 86.4 MCH 29.8 MCHC 34.5 RDW 13.4 Plt Count 354 MPV 8.2 Neut % (Auto) 79.3 H Lymph % (Auto) 11.8 Yancey % (Auto) 8.8 H Eos % (Auto) 0.0 Baso % (Auto) 0.1 Neut # (Auto) 9.6 H Lymph # (Auto) 1.4 [place]y # (Auto) 1.1 H Eos # (Auto) 0.0 Baso # (Auto) 0.0 WBC Differential . Differential Comment Auto diff final Sodium 136 Potassium 3.0 L Chloride 103 Carbon Dioxide 22.6 Anion Gap 10 BUN 8 Creatinine 0.62 Estimated GFR Greater than 89 Random Glucose 106 Calcium 8.7 Magnesium 2.0 D EBV Capsid Ag IgG Ab Positive EBV Capsid Ag IgM Ab Negative EBV Nuclear Antigen Positive EBV Interpretation . Microbiology 12/13/17 08:41 Blood - Peripheral Aerobic Blood Culture - Preliminary No growth in 1 day 12/13/17 08:41 Blood - Peripheral Anaerobic Blood Culture - Preliminary No growth in 1 day 12/13/17 08:23 Blood - Peripheral Aerobic Blood Culture - Preliminary No growth in 1 day 12/13/17 08:23 Blood - Peripheral Anaerobic Blood Culture - Preliminary No growth in 1 day 12/13/17 08:28 Blood - Peripheral Aerobic Blood Culture - Preliminary No growth in 1 day 12/13/17 08:28 Blood - Peripheral Anaerobic Blood Culture - Preliminary No growth in 1 day - Imaging Impressions Bile Acid Absorption NM 12/14/17 00:00 CONCLUSION: 1. Negative examination. No evidence for cystic duct or biliary ductal obstruction. <Alba Dubon - Last Filed: 12/14/17 14:32> - Labs CBC & Chem 7: 12/14/17 05:57 12/14/17 05:57 Laboratory Results - last 24 hr 12/13/17 12/14/17 12/14/17 08:23 05:57 05:57 WBC 12.1 H RBC 4.58 Hgb 13.6 Hct 39.6 MCV 86.4 MCH 29.8 MCHC 34.5 RDW 13.4 Plt Count 354 MPV 8.2 Neut % (Auto) 79.3 H Lymph % (Auto) 11.8 [place]y % (Auto) 8.8 H Eos % (Auto) 0.0 Baso % (Auto) 0.1 Neut # (Auto) 9.6 H Lymph # (Auto) 1.4 [place]y # (Auto) 1.1 H Eos # (Auto) 0.0 Baso # (Auto) 0.0 WBC Differential . Differential Comment Auto diff final Sodium 136 Potassium 3.0 L Chloride 103 Carbon Dioxide 22.6 Anion Gap 10 BUN 8 Creatinine 0.62 Estimated GFR Greater than 89 Random Glucose 106 Calcium 8.7 Magnesium 2.0 D EBV Capsid Ag IgG Ab Positive EBV Capsid Ag IgM Ab Negative EBV Nuclear Antigen Positive EBV Interpretation . Microbiology 12/13/17 08:41 Blood - Peripheral Aerobic Blood Culture - Preliminary No growth in 1 day 12/13/17 08:41 Blood - Peripheral Anaerobic Blood Culture - Preliminary No growth in 1 day 12/13/17 08:23 Blood - Peripheral Aerobic Blood Culture - Preliminary No growth in 1 day 12/13/17 08:23 Blood - Peripheral Anaerobic Blood Culture - Preliminary No growth in 1 day 12/13/17 08:28 Blood - Peripheral Aerobic Blood Culture - Preliminary No growth in 1 day 12/13/17 08:28 Blood - Peripheral Anaerobic Blood Culture - Preliminary No growth in 1 day - Imaging Impressions Bile Acid Absorption NM 12/14/17 00:00 CONCLUSION: 1. Negative examination. No evidence for cystic duct or biliary ductal obstruction. <Pauline Kuhn - Last Filed: 12/14/17 15:41> Assessment and Plan - Plan Assessment: - Intractable nausea/vomiting EGD done due to reports of NSAID use EGD --> Class A esophagitis, biopsy. Erythematous gastritis in the gastric antrum, biopsy. Normal duodenal mucosa in the bulb and second portion of the duodenum. HIDA scan --> No evidence for cystic duct or biliary ductal obstruction. - Constipation- no BM in a few days. States stools are irregular at home secondary to IBS. Denies more constipation or diarrhea. - Fevers and headache- unclear etiology- being worked up for rule out meningitis - LP ordered and MR head Plan: Continue with anti-emetics LP ordered per attending ID following MR brain EGD biopsy pending If symptoms persist with no clear etiology, consider GES on Monday Relistor Bowel regimen Further recommendations to follow Pt has been seen and examined by myself and Dr. Kuhn and this note is written on his behalf <Alba Dubon - Last Filed: 12/14/17 14:32> - Plan Seen and examined with EXTRACTION SUPERVISOR, still with persistent N/V and epigastric pain. HIDA scan normal. EGD/ biopsies-p. Possible gastroeneteritis vs. Non GI etiology of symptoms. ? meningitis. Neuro ramírez started. Consider decadron for nausea/vomitting. Discussed with daughter June. The exam, history, and the medical decision-making described in the above note were completed with the assistance of the mid-level provider. I reviewed and agree with the findings presented. I attest that I had a lorm-me-wvyo encounter with the patient on the same day, and personally performed and documented my assessment and findings in the medical record. <Pauline Kuhn - Last Filed: 12/14/17 15:41>
--- NOTE | 2017-12-14 15:04 | P.PN ---
Subjective Interval history: Nursing reports that the patient has had less vomiting episodes. However fever was noted this morning of at least 100.4. Daughter at the bedside says that the nurse in the emergency room and [place] mention that the patient had stiff hands and feet in the ER. Apparently that sensation has gone away. Daughter also noted that the patient complained of having a severe headache when she tried to have a bowel movement yesterday. Patient reports that her headaches do have a photophobic component to it. She denies ever being diagnosed with meningitis in the past. No neurological disease in the past except for possible Chiari malformation which per my discussion with radiology today was borderline at best upon the most recent MRI that was obtained a year ago. Physical Exam Vital signs: Vital Signs 12/13/17 16:30 12/13/17 16:45 12/13/17 17:00 Temperature 98.9 F 98.2 F Pulse Rate 89 73 78 Respiratory Rate 18 21 18 Blood Pressure 132/65 140/67 140/60 Pulse Oximetry 100 98 96 12/13/17 19:00 12/13/17 21:37 12/13/17 23:00 Temperature 98.3 F 99.7 F H Pulse Rate 75 103 H Respiratory Rate 20 20 Blood Pressure 168/89 H 142/68 H 134/72 Pulse Oximetry 98 97 12/14/17 00:00 12/14/17 01:00 12/14/17 02:00 Temperature Pulse Rate 84 100 H 83 Respiratory Rate Blood Pressure Pulse Oximetry 12/14/17 03:00 12/14/17 04:00 12/14/17 04:43 Temperature 99.0 F Pulse Rate 68 68 Respiratory Rate 16 Blood Pressure 168/87 H 147/70 H Pulse Oximetry 98 12/14/17 05:00 12/14/17 06:00 12/14/17 06:04 Temperature 100.9 F H Pulse Rate 82 80 Respiratory Rate Blood Pressure 143/79 H Pulse Oximetry 12/14/17 07:06 Temperature 99.4 F Pulse Rate Respiratory Rate Blood Pressure Pulse Oximetry Intake & Output 12/13/17 12/14/17 12/14/17 18:59 06:59 18:59 Intake Total 500 / 500 340 / 340 1000 / 1000 Balance 500 / 500 340 / 340 1000 / 1000 Weight 89.4 kg Intake: IV 100 / 100 100 / 100 1000 / 1000 Potassium Chlor 20 mEq/NACL 0. 1000 / 1000 45% Inj 1,000 ML @ 42 mls/hr IV .CONT .[id number] [facility] Rx#:[id number] Magnesium Sulfate 1 gm/D5W 100 100 / 100 ml Premix 100 ML @ 100 mls/hr IV.SIG Q1H [facility] Rx#:[id number] Oral 240 / 240 Anesthesia Amount 400 / 400 Other: # Voids 4 Date of Last Bowel Movement 12/14/17 # Bowel Movements 1 Narrative: +2 patellar reflexes bilaterally Has neutrally positioned feet and ankles, 5/5 strength on dorsiflexion and plantar flexion of bilateral feet, has intact sensation to light finger touch over bilateral lower extremities No facial droop, no slurred speech, alert and oriented x3, has intact insight Awake and alert, Appears to be in mild distress secondary to nausea Abdomen soft, nondistended Results - Labs CBC & Chem 7: 12/15/17 04:35 12/15/17 08:52 Laboratory Results - last 24 hr 12/13/17 12/14/17 12/14/17 08:23 05:57 05:57 WBC 12.1 H RBC 4.58 Hgb 13.6 Hct 39.6 MCV 86.4 MCH 29.8 MCHC 34.5 RDW 13.4 Plt Count 354 MPV 8.2 Neut % (Auto) 79.3 H Lymph % (Auto) 11.8 [place] % (Auto) 8.8 H Eos % (Auto) 0.0 Baso % (Auto) 0.1 Neut # (Auto) 9.6 H Lymph # (Auto) 1.4 [place] # (Auto) 1.1 H Eos # (Auto) 0.0 Baso # (Auto) 0.0 WBC Differential . Differential Comment Auto diff final Sodium 136 Potassium 3.0 L Chloride 103 Carbon Dioxide 22.6 Anion Gap 10 BUN 8 Creatinine 0.62 Estimated GFR Greater than 89 Random Glucose 106 Calcium 8.7 Magnesium 2.0 D EBV Capsid Ag IgG Ab Positive EBV Capsid Ag IgM Ab Negative EBV Nuclear Antigen Positive EBV Interpretation . Microbiology 12/13/17 08:41 Blood - Peripheral Aerobic Blood Culture - Preliminary No growth in 1 day 12/13/17 08:41 Blood - Peripheral Anaerobic Blood Culture - Preliminary No growth in 1 day 12/13/17 08:23 Blood - Peripheral Aerobic Blood Culture - Preliminary No growth in 1 day 12/13/17 08:23 Blood - Peripheral Anaerobic Blood Culture - Preliminary No growth in 1 day 12/13/17 08:28 Blood - Peripheral Aerobic Blood Culture - Preliminary No growth in 1 day 12/13/17 08:28 Blood - Peripheral Anaerobic Blood Culture - Preliminary No growth in 1 day - Imaging Impressions Bile Acid Absorption NM 12/14/17 00:00 CONCLUSION: 1. Negative examination. No evidence for cystic duct or biliary ductal obstruction. Assessment and Plan - Plan 57-year-old white female admitted for nausea vomiting chest pain Recurring fevers Initially thought to be secondary to acute gastroenteritis with initial holiday yesterday, now they are returning with persistent nausea. In light of persistent nausea and headaches, will workup for meningitis. Blood cultures were already obtained upon admission and are pending, so far no growth. Starting cefepime and vancomycin and dexamethasone. Ordering MRI with and without contrast of the brain followed by lumbar puncture with appropriate CSF studies. Nausea vomiting -Most likely from suspected infectious process as above, cardiac and GI workup has been unremarkable for obvious causes of persistent nausea/vomiting. Phenergan. Avoid Zofran as much as possible. Relistor for constipation. Chest pain -Improved likely secondary to multiple rounds of vomiting and retching. EGD shows mild gastritis. HIDA scan is unremarkable. Chronic pain Continue home pain medications, and if unable to tolerate p.o. meds, resort to IV as needed Scrape -on leg; local wound care lovenox once LP performed. Addendum: RN reported pt having runs of VT that resolved w/o medicine. Fevers recurring 101.4. Cardiology following closely, suspect hypokalemia as culprit. Pt has been vomiting throughout the day. Pt herself says that she felt fluttering. Daughter states she noted her c/o sudden chest pain at this moment. RN report just had her IV blown out. They have gotten 2 new IVs. Discussed case with communication coordinator, will transfer to ICU. Echocardiogram ordered by cardiology. Aggregate critical care time was 35 minutes spent at bedside or in the hospital jeffery. Time to perform other separately billable procedures was not included in the critical care time. My time did not include minutes spent treating any other patient simultaneously or on activities that did not directly To be due to the patient's treatment. The services are provided to this patient were to treat and/or prevent clinically significant deterioration that could result in organ failure, , disability, or imminent clinical deterioration in the patient's condition. I provided critical care services requiring my management as noted above.
[2017-12-14] MEDS ORDERED: Gadobutrol PF 10 MMOL/10 ML Vial (for RAD) IV.SIG ONE (15:47)
[2017-12-14] MEDS ORDERED: Vancomycin Inj 1,500 MG in Sodium Chlor 0.9% Inj 500 ML IV.SIG ONE (16:00)
--- NOTE | 2017-12-14 16:03 | MR ---
EXAM DATE: 12/14/2017 3:11 PM EDT AGE/SEX: 57 years / Female INDICATIONS: Encephalitis. Nausea and dizziness. CLINICAL DATA: This is the patient's initial encounter. Patient reports that signs and symptoms have been present for 1 day and indicates a pain score of 0/10. MEDICAL/SURGICAL HISTORY: Hypertension. Fusion, cervical. Hysterectomy. Rotator cuff, right. COMPARISON: POI, MR BRAIN W/O CONTRAST, 01/05/2015. . TECHNIQUE: Multiplanar, multisequence examination of the brain was performed without and with 8.9 ml Gadavist (gadobutrol) contrast as a single exam dose. FINDINGS: Cerebrum: The ventricles are normal for age. No evidence of midline shift, mass lesion, hemorrhage or acute infarction. No extraaxial fluid collections are seen. The pituitary gland and suprasellar cistern are normal in configuration. White Matter: No significant signal abnormalities are seen in the white matter. Posterior Fossa: The cerebellum and brainstem are intact. The 4th ventricle is midline. The cerebel lopontine angle is unremarkable. The cerebellar tonsils are somewhat low just at the level the neeru en magnum. This is similar in appearance to previous exam. Diffusion Imaging: No focal areas of restricted diffusion are seen. No evidence of acute infarction . Extracranial: The visualized portions of the orbits and paranasal sinuses are unremarkable. Post Contrast: No abnormal areas of parenchymal or dural enhancement. No evidence of blood-brain ba rrier breakdown. CONCLUSION: 1. No acute intracranial abnormality identified. 2. No abnormal enhancement identified. Electronically signed by: Migue Gomez MD 12/14/2017 4:01 PM EDT
--- NOTE | 2017-12-14 16:34 | P.RAD ---
Post CT Procedure Prog Note - Pre Procedure Diagnosis (1) Headache - Post Procedure Diagnosis (1) Headache - Procedure Information Procedure Date: 12/14/17 Supervising Radiologist: Migue Gomez MD Estimated blood loss (mL): 0 Anesthesia: Local - Plan of Activity Patient to Unit: Nursing Unit Patient condition: Fair Additional Comments: LP completed without difficulty. Opening pressure 22.5 16 cc of clear csf removed. See PACS Report for procedural detail/treatment.
--- NOTE | 2017-12-14 16:51 | P.PNCA ---
Subjective Interval history: Patient currently denies any chest pain, pressure, palpitations, dizziness, edema or shortness of breath. Patient continues to complain of nausea and vomiting that has been unrelieved with medication. Patient is currently headed to have a HIDA scan to rule out gallbladder. Medications and Allergies Allergies Allergy/AdvReac Type Severity Reaction Status Date / Time latex Allergy Severe Swelling Verified 12/12/17 10:31 Home Medications Medication Instructions Recorded Confirmed Type estradiol 2 mg PO DAILY 12/12/17 12/12/17 History morphine 15 mg PO Q4-6H PRN 12/12/17 12/12/17 History oxycodone 10 mg PO Q4-6H PRN 12/12/17 12/12/17 History pantoprazole [Protonix] 20 mg PO DAILY 12/12/17 12/12/17 History Active Medications: Active Medications Acetaminophen (Tylenol) 650 mg PO Q4H PRN PRN Reason: FEVER Last Admin: 12/14/17 06:10 Dose: 650 mg Amlodipine Besylate (Norvasc) 5 mg PO DAILY [facility] Last Admin: 12/14/17 12:08 Dose: 5 mg Bisacodyl (Dulcolax Supp) 10 mg RECTAL DAILY [facility] Last Admin: 12/13/17 21:39 Dose: 10 mg Collagenase (Santyl Oint) 1 applicatio TOPICAL DAILY [facility] Last Admin: 12/13/17 20:53 Dose: 1 applicatio Dexamethasone Sodium Phosphate (Decadron Inj) 8 mg IV.PUSH Q6HR [facility] Last Admin: 12/14/17 14:29 Dose: 8 mg Diazepam (Valium) 5 mg PO [employer] [facility] Stop: 12/16/17 14:14 Diphenhydramine HCl (Benadryl) 50 mg PO [facility] [employer] [facility] Stop: 12/16/17 14:14 Diphenhydramine HCl (Benadryl Inj) 25 mg IV.PUSH [facility] [facility] Stop: 12/16/17 14:59 Enalaprilat (Vasotec Inj) 1.25 mg IV.PUSH Q8H PRN PRN Reason: HYPERTENSION Last Admin: 12/14/17 05:25 Dose: 1.25 mg Fentanyl Citrate (Fentanyl Inj) 50 mcg IV.PUSH [facility] [facility] Stop: 12/16/17 14:14 Hydralazine HCl (Apresoline Inj) 10 mg IV.PUSH Q8H PRN PRN Reason: SBP > 150 or DBP > 90 Last Admin: 12/14/17 14:27 Dose: 10 mg Potassium Chloride/Sodium Chloride (Potassium Chlor 20 Meq/Nacl 0.45% Inj) 1, 000 mls @ 42 mls/hr IV.CONT .[id number] [facility] Last Admin: 12/14/17 14:17 Dose: 42 mls/hr Cefepime HCl 2,000 mg/ Sodium (Chloride) 100 mls @ 200 mls/hr IV.SIG Q8H [facility] Last Admin: 12/14/17 14:18 Dose: 200 mls/hr Vancomycin HCl 1,500 mg/ (Sodium Chloride) 515 mls @ 250 mls/hr IV.SIG ONCE ONE Stop: 12/14/17 18:03 Vancomycin HCl 1,500 mg/ (Sodium Chloride) 515 mls @ 250 mls/hr IV.SIG Q12H [facility] Lorazepam (Ativan Inj) 0.5 mg IV.PUSH Q6H PRN PRN Reason: ANXIETY Last Admin: 12/14/17 14:44 Dose: 0.5 mg Midazolam HCl (Versed Inj) 1 mg IV.PUSH [facility] [employer] [facility] Stop: 12/16/17 14:14 Miscellaneous Information ([facility] Nursing Information) 1 each OTHER UNSCH PRN PRN Reason: SEE LABEL COMMENTS Stop: 12/14/17 19:47 Miscellaneous Information ([facility] Ordered Lab Info) 1 each OTHER ONCE ONE Stop: 12/16/17 03:46 Morphine Sulfate (Msir) 15 mg PO Q4H PRN PRN Reason: Pain 1-10 Morphine Sulfate (Morphine Inj) 2 mg IV.PUSH Q4H PRN PRN Reason: SEE LABEL COMMENTS Last Admin: 12/14/17 12:07 Dose: 2 mg Ondansetron HCl (Zofran Inj) 4 mg IV.PUSH Q6H PRN PRN Reason: NAUSEA Pantoprazole Sodium (Protonix Inj) 40 mg IV.PUSH Q12H [facility] Last Admin: 12/14/17 05:16 Dose: 40 mg Pharmacy Profile Note (Vancomycin Consult Pharmacy) 1 each OTHER UNSCH PRN PRN Reason: Pharmacy to dose Promethazine HCl (Phenergan Inj) 12.5 mg IM Q6H PRN PRN Reason: vomiting refractory to po Last Admin: 12/14/17 12:07 Dose: 12.5 mg Sodium Chloride (Ns Flush) 2 ml IV.FLUSH BID [facility] Last Admin: 12/13/17 21:39 Dose: 2 ml Sodium Chloride (Ns Flush) 2 ml IV.FLUSH PRN PRN PRN Reason: FLUSH AFTER USING IV ACCESS Physical Exam Vital signs: Vital Signs 12/13/17 16:45 12/13/17 17:00 12/13/17 19:00 Temperature 98.2 F 98.3 F Pulse Rate 73 78 75 Respiratory Rate 21 18 20 Blood Pressure 140/67 140/60 168/89 H Pulse Oximetry 98 96 98 12/13/17 21:37 12/13/17 23:00 12/14/17 00:00 Temperature 99.7 F H Pulse Rate 103 H 84 Respiratory Rate 20 Blood Pressure 142/68 H 134/72 Pulse Oximetry 97 12/14/17 01:00 12/14/17 02:00 12/14/17 03:00 Temperature Pulse Rate 100 H 83 68 Respiratory Rate Blood Pressure Pulse Oximetry 12/14/17 04:00 12/14/17 04:43 12/14/17 05:00 Temperature 99.0 F Pulse Rate 68 82 Respiratory Rate 16 Blood Pressure 168/87 H 147/70 H Pulse Oximetry 98 12/14/17 06:00 12/14/17 06:04 12/14/17 07:06 Temperature 100.9 F H 99.4 F Pulse Rate 80 Respiratory Rate Blood Pressure 143/79 H Pulse Oximetry Intake & Output 12/13/17 12/14/17 12/14/17 18:59 06:59 18:59 Intake Total 500 / 500 340 / 340 1000 / 1000 Balance 500 / 500 340 / 340 1000 / 1000 Weight 89.4 kg Intake: IV 100 / 100 100 / 100 1000 / 1000 Potassium Chlor 20 mEq/NACL 0. 1000 / 1000 45% Inj 1,000 ML @ 42 mls/hr IV .CONT .[id number] [facility] Rx#:[id number] Magnesium Sulfate 1 gm/D5W 100 100 / 100 ml Premix 100 ML @ 100 mls/hr IV.SIG Q1H [facility] Rx#:[id number] Oral 240 / 240 Anesthesia Amount 400 / 400 Other: # Voids 4 Date of Last Bowel Movement 12/14/17 # Bowel Movements 1 Narrative: GENERAL: This is a well-nourished, well-developed patient, in no apparent distress. Patient speaks in clear complete sentences. Patient is pleasant. HEENT: Head is atraumatic and normocephalic. Neck is supple without lymphadenopathy and trachea is midline. No JVD or carotid bruits. CARDIOVASCULAR: Regular rate and rhythm without murmurs, gallops, or rubs. RESPIRATORY: Clear to auscultation. Breath sounds equal bilaterally. No wheezes , rales, or rhonchi. Chest wall is nontender. No use of accessory muscles. GASTROINTESTINAL: Abdomen is nontender, nondistended. Abdomen soft. No obvious pulsatile mass or bruit. No CVA tenderness. Strong femoral pulses bilaterally. Normal bowel sounds in all quadrants. MUSCULOSKELETAL: Patient is moving upper and lower extremities freely. No calf tenderness or edema, no Homans sign. Strong pulses in upper and lower extremities. NEUROLOGICAL: Patient is alert and oriented. Cranial nerves 2-12 are grossly intact. No focal deficits and speech is clear. SKIN: No rash and turgor is normal. Large dressing to the left lower leg which appears to be dry and intact. Results 12/14/17 18:30 12/14/17 05:57 Cardiac Enzymes 12/12/17 12/13/17 Range/Units 17:35 08:23 AST 18 34 (15-37) U/L Coagulation 12/12/17 Range/Units 17:35 PT 10.6 (9.8-11.6) sec APTT 21.1 L (24.3-30.1) sec CBC 12/13/17 12/14/17 Range/Units 08:23 05:57 WBC 10.8 12.1 H (4.0-11.0) th/mm3 RBC 4.28 4.58 (4.00-5.30) mil/mm3 Hgb 12.8 13.6 (11.6-15.3) gm/dL Hct 36.4 39.6 (35.0-46.0) % Plt Count 315 354 (150-450) th/mm3 Neut # (Auto) 8.8 H 9.6 H (1.8-7.7) th/mm3 Lymph # (Auto) 1.3 1.4 (1.0-4.8) th/mm3 [place] # (Auto) 0.7 1.1 H (0.0-0.9) th/mm3 Eos # (Auto) 0.0 0.0 (0.0-0.4) th/mm3 Baso # (Auto) 0.0 0.0 (0.0-0.2) th/mm3 Comprehensive Metabolic Panel 12/12/17 12/13/17 12/13/17 Range/Units 17:35 06:32 08:23 Sodium Cancelled 139 Potassium Cancelled 2.8 L* D Chloride Cancelled 105 Carbon Dioxide Cancelled 23.9 BUN Cancelled 6 L Creatinine Cancelled 0.63 Calcium Cancelled 8.6 D Direct Bilirubin 0.2 (0.0-0.2) mg/dL Indirect Bilirubin 0.4 (0.0-0.8) mg/dL AST 18 34 (15-37) U/L ALT 22 21 (10-53) U/L Alkaline Phosphatase 81 74 (45-117) U/L Total Protein 7.2 D 6.8 (6.4-8.2) g/dL Albumin 3.7 D 3.5 (3.4-5.0) g/dL 12/14/17 Range/Units 05:57 Sodium 136 Potassium 3.0 L Chloride 103 Carbon Dioxide 22.6 BUN 8 Creatinine 0.62 Calcium 8.7 Direct Bilirubin (0.0-0.2) mg/dL Indirect Bilirubin (0.0-0.8) mg/dL AST (15-37) U/L ALT (10-53) U/L Alkaline Phosphatase (45-117) U/L Total Protein (6.4-8.2) g/dL Albumin (3.4-5.0) g/dL Intake and Output 12/14/17 12/14/17 12/14/17 06:59 14:59 22:59 Intake Total 340 / 340 1000 / 1000 Balance 340 / 340 1000 / 1000 Intake: IV 100 / 100 1000 / 1000 Potassium Chlor 20 mEq/NACL 0. 1000 / 1000 45% Inj 1,000 ML @ 42 mls/hr IV .CONT .[id number] [facility] Rx#:[id number] Oral 240 / 240 Other: # Voids 4 Date of Last Bowel Movement 12/14/17 # Bowel Movements 1 Weight 89.4 kg - Imaging and Cardiology Imaging: Impressions Chest X-Ray 12/12/17 00:00 CONCLUSION: No acute cardiopulmonary disease. Pulmonary Perfusion Imaging 12/12/17 20:24 CONCLUSION: 1. Low probability pulmonary embolism. Bile Acid Absorption NM 12/14/17 00:00 CONCLUSION: 1. Negative examination. No evidence for cystic duct or biliary ductal obstruction. Head MRI 12/14/17 13:20 CONCLUSION: 1. No acute intracranial abnormality identified. 2. No abnormal enhancement identified. Assessment and Plan - Assessment (1) Nausea & vomiting Code(s): R11.2 - Nausea with vomiting, unspecified Status: Acute (2) Chest pain Code(s): R07.9 - Chest pain, unspecified Status: Acute (3) Hypertension Code(s): I10 - Essential (primary) hypertension Status: Acute (4) Fever Code(s): R50.9 - Fever, unspecified Status: Acute - Plan Continue IV hydration and K replacement. HIDA scan done today, unremarkable. MRI of the brain, unremarkable. Patient had cardiac catheterization, no evidence of acute coronary stenosis. Check echo tomorrow. Episodes of NSVT this PM, transfer to ICU, replace K and Mg, and start esmolol drip. Continue current cardiac treatment plan and adjust as needed. The patient was seen and evaluated by Dr. Clark who participated in care, management and decision-making. - Attending Attestation Patient seen and examined. I reviewed and agree with the evaluation and plan as presented. Replace K, start IV esmolol, transfer to ICU. GI and ID evaluation. The reason for her profuse vomiting is still unclear.
[2017-12-14] MEDS: Bisacodyl 10 MG Supp RECTAL SCH (17:16)
[2017-12-14] MEDS: Collagenase Oint 30 GM Tube TOPICAL SCH (17:17)
[2017-12-14 17:34] LABS: Lymphocytes, CSF 60 %; Neutrophils,CSF 0 %; RBC on Tube 4 14 /mm3
[2017-12-14] MEDS ORDERED: Esmolol Bolus Inj 100 MG/10 ML Vial IV.PUSH ONE (18:22)
[2017-12-14] MEDS ORDERED: Mag Sulf 1 gm/100 ml Premix 100 ML IV.SIG ONE (18:35)
[2017-12-14] MEDS: Potassium Chlor 20 mEq Premix 20 MEQ/100 ML PIGGYBACK IV.SIG SCH ×2 (18:50→20:56)
[2017-12-14] MEDS ORDERED: Bisacodyl 10 MG Supp RECTAL ONE (19:04)
--- NOTE | 2017-12-14 19:15 | P.CONCC ---
History of Present Illness Service: Critical Care Medicine Consult date: 12/14/17 Requesting Physician: Golden Menendez Reason for Consult: Nonsustained Vtach, fever Primary Care Provider: UNKNOWN Chief Complaint: Vomiting History of Present Illness: 57-year-old female with past medical history of Duff's esophagus, GERD, IBS, chronic neck pain on narcotics at home. She was in her usual state of health until she was "not feeling great" on Saturday 12/09. On Monday 12/11 she began having multiple episodes of non-bloody and nonbilious emesis. After having several episodes of emesis she developed midepigastric and chest pain. She was weak with lightheaded with standing on 12/12 so her daughter June, who is an [employer], brought her to [facility] emergency department in [place] due to concerns for dehydration. She had CT abdomen pelvis that demonstrated constipation and findings consistent with mild colitis. Her troponin was elevated at 0.41 so she was transferred to [facility] where she underwent urgent cardiac catheterization. Coronary arteries were tortuous but without stenosis. Ejection fraction was 60-65%. D-dimer was 0.8. VQ scan negative. She has had ongoing nausea and vomiting and therefore gastroenterology was consulted. She had an EGD 12/13 that demonstrated gastritis and esophagitis. Pathology is pending. She had a negative HIDA scan 12/14. Gastroenterology recommended trial of Decadron for nausea and vomiting. Possible gastric emptying study on Monday. She has also had neck pain and headache yesterday (she attributes to pain related to multiple prior neck surgeries). MRI with and without contrast today showed no acute abnormality. She has undergone lumbar puncture which is unremarkable. She has had a fever this morning of 100.9 and was started on cefepime and vancomycin empirically by the hospitalist. This evening she had a temperature of 102.4. Blood cultures from 12/13 NGTD. ID evaluated 12/13 for left leg abrasion and recommended wound care. She has had electrolyte abnormalities associated with ongoing nausea and vomiting including hypomagnesemia and hypokalemia with potassium of 2.8. This evening she had 2 episodes of nonsustained V. tach. Cardiology was aware and has initiated esmolol drip as she has ongoing hypertension. Hospitalist has request for transfer to ICU bed for closer monitoring during electrolyte replacement given the presence of Vtach. PMFSH - History History Provided By: Patient, Family Member - Medical History Medical History: Medical History (Last Updated 12/14/17 @ 19:39 by Sarah Mendez MD) Barretts esophagus Chronic pain GERD (gastroesophageal reflux disease) Gastritis IBS (irritable bowel syndrome) Chiari malformation Hx of hysterectomy - Surgical History Surgical History: Surgical History (Last Updated 12/14/17 @ 19:42 by Sarah Mendez MD) Hx of neck surgery (Acute) Hx of rotator cuff surgery - Family History Family History: Family History (Last Updated 12/14/17 @ 19:43 by Sarah Mendez MD) Father Brain aneurysm Mother COPD (chronic obstructive pulmonary disease) Other Hypertension - Tobacco History Smoking Status: Never smoker - Alcohol History How Often Do You Have a Drink Containing Alcohol: Monthly or less - Substance Use History Substance History: No History of Abuse Medications and Allergies Active Medications: Active Medications Acetaminophen (Tylenol) 650 mg PO Q4H PRN PRN Reason: FEVER Last Admin: 12/14/17 06:10 Dose: 650 mg Amlodipine Besylate (Norvasc) 5 mg PO DAILY [facility] Last Admin: 12/14/17 12:08 Dose: 5 mg Bisacodyl (Dulcolax Supp) 10 mg RECTAL DAILY [facility] Last Admin: 12/14/17 17:16 Dose: Not Given Bisacodyl (Dulcolax Supp) 10 mg RECTAL ONCE ONE Stop: 12/14/17 19:05 Collagenase (Santyl Oint) 1 applicatio TOPICAL DAILY [facility] Last Admin: 12/14/17 17:17 Dose: Not Given Diazepam (Valium) 5 mg PO DRY WALL APPLICATOR [facility] Stop: 12/16/17 14:14 Diphenhydramine HCl (Benadryl) 50 mg PO DRY WALL APPLICATOR [facility] Stop: 12/16/17 14:14 Diphenhydramine HCl (Benadryl Inj) 25 mg IV.PUSH DRY WALL APPLICATOR [facility] Stop: 12/16/17 14:59 Enalaprilat (Vasotec Inj) 1.25 mg IV.PUSH Q8H PRN PRN Reason: HYPERTENSION Last Admin: 12/14/17 05:25 Dose: 1.25 mg Esmolol HCl (Brevibloc Bolus Inj) 45 mg 0.5 mg/kg (45 mg) IV.PUSH BOLUS ONE Stop: 12/14/17 18:23 Fentanyl Citrate (Fentanyl Inj) 50 mcg IV.PUSH DRY WALL APPLICATOR [facility] Stop: 12/16/17 14:14 Hydralazine HCl (Apresoline Inj) 10 mg IV.PUSH Q8H PRN PRN Reason: SBP > 150 or DBP > 90 Last Admin: 12/14/17 14:27 Dose: 10 mg Potassium Chloride/Sodium Chloride (Potassium Chlor 20 Meq/Nacl 0.45% Inj) 1, 000 mls @ 42 mls/hr IV.CONT .[id number] [facility]W Last Admin: 12/14/17 14:17 Dose: 42 mls/hr Cefepime HCl 2,000 mg/ Sodium (Chloride) 100 mls @ 200 mls/hr IV.SIG Q8H [facility]W Last Infusion: 12/14/17 17:22 Dose: Infused Vancomycin HCl 1,500 mg/ (Sodium Chloride) 515 mls @ 250 mls/hr IV.SIG Q12H [facility]W Esmolol HCl (Brevibloc 2,500 Mg/Ns 250 Ml Premix) 2,500 mg in 250 mls @ 26.82 mls/hr IV.CONT TITRATE PRN; Protocol PRN Reason: Per Protocol Potassium Chloride (Kcl 20 Meq Premix Inj) 20 meq in 100 mls @ 50 mls/hr IV.SIG Q2H [facility] Stop: 12/14/17 22:44 Last Admin: 12/14/17 18:50 Dose: 50 mls/hr Lorazepam (Ativan Inj) 0.5 mg IV.PUSH Q6H PRN PRN Reason: ANXIETY Last Admin: 12/14/17 14:44 Dose: 0.5 mg Midazolam HCl (Versed Inj) 1 mg IV.PUSH DRY WALL APPLICATOR [facility] Stop: 12/16/17 14:14 Miscellaneous Information ([facility]) 1 each OTHER UNSCH PRN PRN Reason: SEE LABEL COMMENTS Stop: 12/14/17 19:47 Miscellaneous Information ([facility] Ordered Lab Info) 1 each OTHER ONCE ONE Stop: 12/16/17 03:46 Morphine Sulfate (Msir) 15 mg PO Q4H PRN PRN Reason: Pain 1-10 Morphine Sulfate (Morphine Inj) 2 mg IV.PUSH Q4H PRN PRN Reason: SEE LABEL COMMENTS Last Admin: 12/14/17 12:07 Dose: 2 mg Ondansetron HCl (Zofran Inj) 4 mg IV.PUSH Q6H PRN PRN Reason: NAUSEA Pantoprazole Sodium (Protonix Inj) 40 mg IV.PUSH Q12H [facility] Last Admin: 12/14/17 05:16 Dose: 40 mg Pharmacy Profile Note (Vancomycin Consult Pharmacy) 1 each OTHER UNSCH PRN PRN Reason: Pharmacy to dose Promethazine HCl (Phenergan Inj) 12.5 mg IM Q6H PRN PRN Reason: vomiting refractory to po Last Admin: 12/14/17 12:07 Dose: 12.5 mg Sodium Chloride (Ns Flush) 2 ml IV.FLUSH BID [facility] Last Admin: 12/14/17 17:16 Dose: Not Given Sodium Chloride (Ns Flush) 2 ml IV.FLUSH PRN PRN PRN Reason: FLUSH AFTER USING IV ACCESS Allergies Allergy/AdvReac Type Severity Reaction Status Date / Time latex Allergy Severe Swelling Verified 12/12/17 10:31 Home Medications Medication Instructions Recorded Confirmed Type estradiol 2 mg PO DAILY 12/12/17 12/19/17 History morphine 15 mg PO TID PRN 12/12/17 12/19/17 History oxycodone 10 mg PO BID PRN 12/12/17 12/19/17 History pantoprazole [Protonix] 40 mg PO DAILY 12/12/17 12/19/17 History Physical Exam Vital signs: Vital Signs 12/13/17 21:37 12/13/17 23:00 12/14/17 00:00 Temperature 99.7 F H Pulse Rate 103 H 84 Respiratory Rate 20 Blood Pressure 142/68 H 134/72 Pulse Oximetry 97 12/14/17 01:00 12/14/17 02:00 12/14/17 03:00 Temperature Pulse Rate 100 H 83 68 Respiratory Rate Blood Pressure Pulse Oximetry 12/14/17 04:00 12/14/17 04:43 12/14/17 05:00 Temperature 99.0 F Pulse Rate 68 82 Respiratory Rate 16 Blood Pressure 168/87 H 147/70 H Pulse Oximetry 98 12/14/17 06:00 12/14/17 06:04 12/14/17 07:06 Temperature 100.9 F H 99.4 F Pulse Rate 80 Respiratory Rate Blood Pressure 143/79 H Pulse Oximetry Intake & Output 12/14/17 12/14/17 12/15/17 06:59 18:59 06:59 Intake Total 340 / 340 1100 / 1100 Balance 340 / 340 1100 / 1100 Weight 89.4 kg Intake: IV 100 / 100 1100 / 1100 Potassium Chlor 20 mEq/NACL 0. 1000 / 1000 45% Inj 1,000 ML @ 42 mls/hr IV .CONT .[id number] [facility]W Rx#:[id number] Maxipime Inj 2,000 MG In NS Inj 100 / 100 100 ML @ 200 mls/hr IV.SIG Q8H [facility] Rx#:[id number] Oral 240 / 240 Other: # Voids 4 Date of Last Bowel Movement 12/14/17 # Bowel Movements 1 Narrative: GENERAL: Well-nourished, well-developed patient sitting up in CVICU bed, alert and conversant. SKIN: Warm and dry. HEAD: Atraumatic. Normocephalic. EYES: Pupils equal and round. No scleral icterus. No injection or drainage. ENT: No nasal bleeding or discharge. Mucous membranes pink and moist. Dentures in place. NECK: Trachea midline. No JVD. No meningismus CARDIOVASCULAR: Regular rate and rhythm. 1/6 systolic murmur LSB. RESPIRATORY: No accessory muscle use. Clear to auscultation. Breath sounds equal bilaterally. GASTROINTESTINAL: Abdomen soft, non-tender, nondistended. Bowel sounds present. MUSCULOSKELETAL: Extremities without clubbing, cyanosis, or edema. No obvious deformities. NEUROLOGICAL: Awake and alert. No obvious cranial nerve deficits. Motor grossly within normal limits. Normal speech. Assessment and Plan - Problem List (1) Chronic, continuous use of opioids Code(s): F11.90 - Opioid use, unspecified, uncomplicated Status: Acute (2) Nausea & vomiting Code(s): R11.2 - Nausea with vomiting, unspecified Status: Acute (3) Nonsustained ventricular tachycardia Code(s): I47.2 - Ventricular tachycardia Status: Acute (4) Hypertension Code(s): I10 - Essential (primary) hypertension Status: Chronic (5) Fever Code(s): R50.9 - Fever, unspecified Status: Acute (6) Hypokalemia Code(s): E87.6 - Hypokalemia Status: Acute - Assessment and Plan Plan: NEURO: Acute on Chronic neck pain/headache MRI negative 12/14 LP 12/14 gram stain negative, nl glucose, protein, 1WBC, 14 RBC. Chronic opioid use RESP: RA CV: Nonsustained V tach HTN ?secondary to electrolyte abnormalities, Repleting. Cath negative 12/12 Echo to evaluate further for structural heart disease/myocarditis though cath with normal EF so this seems less likely. Troponin 0.87-->0.84. Esmolol drip per cardiology Norvasc 5 mg p.o. daily Cardiology following, GI: Intractable nausea/vomiting Gastritis and esophagitis Constipation CT 12/11 with colitis. Dulcolax pr now. Received Relistor. Negative HIDA, EGD with gastritis and esophagitis. GI following, possible GES Monday. On PPI twice daily Trial of decadron for nausea per GI recs. FEN/RENAL: Hypokalemia Hypomagnesium, resolved Replete electrolytes in view of Nonsustained VTach. ID: Fever ? Viral process/gastroenteritis.. Blood cultures 12/13 NGTD. LP 12/14 no meningitis. HSV PCR pending. HIDA negative. Obtain U/a, influenza. Is on cefepime/vanc per hospitalist. Noted ID has been reconsulted so will defer abx management to them. HEME: Monitor CBC. ENDO: Euglycemic. Check TSH. PROPH: SCDs for DVT prophylaxis. Holding pharmacologic DVT prophylaxis for 24 hours post lumbar puncture. Pantoprazole 40 mg IV every 12 hours. ACCESS: Peripheral IV providing adequate access at this time. Full code Patient and her daughter, June, updated at bedside. Questions answered. Level 3 consult
[2017-12-14 19:19] LABS: Baso % (Auto) 0.3 % (0.0-2.0); Hematocrit 42.1 % (35.0-46.0); Hemoglobin 14.3 gm/dL (11.6-15.3); Lymph # (Auto) 0.7 th/mm3 (1.0-4.8); Lymph % (Auto) 7.5 % (9.0-44.0); Mean Corpuscular HGB Conc 34.1 % (32.0-36.0); Mean Corpuscular Hemoglobin 29.9 pg (27.0-34.0); Mean Corpuscular Volume 87.8 fL (80.0-100.0); Mean Platelet Volume 8.7 fL (7.0-11.0); Mono # (Auto) 0.3 th/mm3 (0.0-0.9); Mono % (Auto) 2.6 % (0.0-8.0); Neut # (Auto) 8.7 th/mm3 (1.8-7.7); Neut % (Auto) 89.6 % (16.0-70.0); Platelet Count 257 th/mm3 (150-450); Red Blood Count 4.79 mil/mm3 (4.00-5.30); Red Cell Distribution Width 13.5 % (11.6-17.2); White Blood Count 9.8 th/mm3 (4.0-11.0)
[2017-12-14 19:52] LABS: Albumin 3.6 g/dL (3.4-5.0); Anion Gap 12 meq/L (5-15); Aspartate Aminotransferase 39 U/L (15-37); Blood Urea Nitrogen 11 mg/dL (7-18); Calcium 8.6 mg/dL (8.5-10.1); Carbon Dioxide 20.4 meq/L (21.0-32.0); Chloride 103 meq/L (98-107); Glomerular Filtration Rate Greater Than 89 mL/min (>89); Glucose,Random 102 mg/dL (74-106); Magnesium 2.1 mg/dL (1.5-2.5); Potassium 3.6 meq/L (3.5-5.1); Sodium 135 meq/L (136-145)
[2017-12-14 19:53] LABS: Alanine Aminotransferase 26 U/L (10-53)
[2017-12-14 19:56] LABS: Alkaline Phosphatase 72 U/L (45-117); Total Protein 7.3 g/dL (6.4-8.2)
[2017-12-14] MEDS ORDERED: Magnesium Sulfate Inj 2 GM in Sodium Chlor 0.9% Inj 96 ML IV.SIG ONE (20:00)
--- NOTE | 2017-12-14 20:20 | XR ---
EXAM DATE: 12/14/2017 7:23 PM EDT AGE/SEX: 57 years / Female INDICATIONS: Respiratory disease CLINICAL DATA: This is the patient's subsequent encounter. Patient reports that signs and symptoms h ave been present for 3 days and indicates a pain score of 0/10. MEDICAL/SURGICAL HISTORY: . Hypertension.. . Fusion, cervical. Hysterectomy. Rotator cuff, ri ght COMPARISON: [facility], CHEST 2V PA&LAT, 12/12/2017. . FINDINGS: A single AP view of the chest demonstrates the lungs to be symmetrically aerated without evidence of mass, infiltrate or effusion. The cardiomediastinal contours are unremarkable. Osseous structures a re intact. CONCLUSION: The lungs are clear. Electronically signed by: Jose Leija MD 12/14/2017 8:19 PM EDT
[2017-12-14 20:47] LABS: CKMB Percent 1.2 % (0.0-4.0); Creatine Kinase MB 3.7 ng/mL (0.5-3.6)
[2017-12-14 20:56] LABS: Troponin I 0.89 ng/mL (0.02-0.05)
[2017-12-14] MEDS ORDERED: Methylnaltrexone Inj 12 MG/0.6 ML Vial SQ ONE (22:15)
[2017-12-14] MEDS: Esmolol 2,500 mg/250 mL Premix 2,500 MG/250 ML BAG IV.CONT PRN (22:59)
[2017-12-15] MEDS: Morphine Sulfate Inj 2 MG/ML Vial IV.PUSH PRN ×5 (01:36→20:19)
[2017-12-15 02:59] LABS: Bacteria,Urine Few /hpf; Bilirubin,Urine Negative (Negative); Clarity,Urine Clear (Clear); Color,Urine Yellow (Yellw/Straw); Glucose,Urine (UA) Negative (Negative); Leukocyte Esterase,Urine Negative (Negative); Mucus,Urine Few /lpf (Occasional); Nitrite,Urine Negative (Negative); Specific Gravity,Urine 1.012 (1.002-1.035); Squamous Epithelial Cell,Urine <1 /hpf (0-5)
[2017-12-15 03:03] LABS: Amphetamine Screen,Urine Neg (Neg); Barbiturate Screen,Urine Neg (Neg); Cannabinoid Screen,Urine Pos (Neg); Cocaine Screen,Urine Neg (Neg); Opiate Screen,Urine Pos (Neg)
[2017-12-15] MEDS: Esmolol 2,500 mg/250 mL Premix 2,500 MG/250 ML BAG IV.CONT PRN ×5 (03:53→22:56)
[2017-12-15 04:57] LABS: Baso % (Auto) 0.3 % (0.0-2.0); Hemoglobin 13.1 gm/dL (11.6-15.3); Lymph # (Auto) 1.9 th/mm3 (1.0-4.8); Mean Corpuscular HGB Conc 33.5 % (32.0-36.0); Mean Corpuscular Hemoglobin 29.6 pg (27.0-34.0); Mean Corpuscular Volume 88.4 fL (80.0-100.0); Mean Platelet Volume 7.7 fL (7.0-11.0); Mono # (Auto) 0.8 th/mm3 (0.0-0.9); Mono % (Auto) 8.8 % (0.0-8.0); Neut # (Auto) 5.9 th/mm3 (1.8-7.7); Neut % (Auto) 68.9 % (16.0-70.0); Platelet Count 333 th/mm3 (150-450); Red Blood Count 4.41 mil/mm3 (4.00-5.30); Red Cell Distribution Width 13.2 % (11.6-17.2); White Blood Count 8.6 th/mm3 (4.0-11.0)
[2017-12-15 05:09] LABS: Potassium 3.4 meq/L (3.5-5.1)
[2017-12-15] MEDS: Vancomycin Inj 1,500 MG in Sodium Chlor 0.9% Inj 500 ML IV.SIG SCH ×2 (05:09→17:54)
[2017-12-15 05:11] LABS: Magnesium 2.2 mg/dL (1.5-2.5)
[2017-12-15] MEDS ORDERED: Magnesium Oxide 400 MG Tablet PO PRN (05:32)
[2017-12-15] MEDS ORDERED: Potassium Phosphate Inj 30 MMOL in Sodium Chlor 0.9% Inj 250 ML IV.SIG PRN (05:32)
[2017-12-15] MEDS ORDERED: Potassium Phosphate 500 MG Soluble Tablet PO PRN ×2 (05:32)
[2017-12-15] MEDS ORDERED: Magnesium Sulfate Inj 2 GM in Sodium Chlor 0.9% Inj 96 ML IV.SIG PRN (05:32)
[2017-12-15] MEDS ORDERED: Magnesium Sulfate Inj 4 GM in Sodium Chlor 0.9% Inj 92 ML IV.SIG PRN (05:32)
[2017-12-15] MEDS ORDERED: Sodium Phosphate Inj 30 MMOL in Sodium Chlor 0.9% Inj 250 ML IV.SIG PRN (05:32)
[2017-12-15] MEDS ORDERED: Potassium Chloride 25 MEQ Effervescent Tablet PO PRN (05:32)
[2017-12-15] MEDS ORDERED: Potassium Chlor 20 mEq Premix 20 MEQ/100 ML PIGGYBACK IV.SIG PRN ×2 (05:32)
[2017-12-15] MEDS ORDERED: Potassium Chlor 40 mEq Premix 40 MEQ/100 ML PIGGYBACK IV.SIG PRN ×2 (05:32)
[2017-12-15] MEDS: Pantoprazole Inj 40 MG Vial IV.PUSH SCH ×2 (06:16→17:55)
[2017-12-15] MEDS: Collagenase Oint 30 GM Tube TOPICAL SCH (09:29)
[2017-12-15] MEDS: Bisacodyl 10 MG Supp RECTAL SCH (09:32)
[2017-12-15] MEDS: amLODIPine 5 MG Tablet PO SCH (09:33)
--- NOTE | 2017-12-15 10:54 | P.PNGI ---
Subjective Interval history: Pt transferred to [facility] ICU last night. Runs of non-sustained V-tach, according to pt was symptomatic with chest pain. Daughter, June at bedside. Pt continues to have nausea. Denies any abdominal pain. No BM in a few days but has had no PO intake. <Alba Dubon - Last Filed: 12/15/17 10:50> Physical Exam Vital signs: Vital Signs 12/14/17 12:00 12/14/17 13:00 12/14/17 14:00 Temperature Pulse Rate 98 H 101 H 100 H Respiratory Rate Blood Pressure Pulse Oximetry 12/14/17 16:30 12/14/17 16:32 12/14/17 17:00 Temperature 101.6 F H Pulse Rate 106 H 108 H 109 H Respiratory Rate 18 Blood Pressure 148/77 H Pulse Oximetry 100 12/14/17 17:32 12/14/17 19:00 12/14/17 19:23 Temperature 99.4 F Pulse Rate 108 H 108 H Respiratory Rate 20 Blood Pressure 134/77 147/89 H Pulse Oximetry 97 12/14/17 23:00 12/14/17 23:36 12/14/17 23:50 Temperature 100.2 F H Pulse Rate 87 82 Respiratory Rate 22 20 Blood Pressure 159/74 H Pulse Oximetry 97 12/15/17 03:00 12/15/17 07:00 Temperature 99.2 F 97.6 F Pulse Rate 70 70 Respiratory Rate 20 18 Blood Pressure 160/93 H 173/94 H Pulse Oximetry 97 96 Intake & Output 12/14/17 12/15/17 12/15/17 18:59 06:59 18:59 Intake Total 1340 / 1340 1745 / 1745 600 / 600 Output Total 900 / 900 Balance 1340 / 1340 845 / 845 600 / 600 Weight 88 kg Intake: IV 1100 / 1100 1265 / 1265 600 / 600 Brevibloc 2,500 mg/NS 250 mL 250 / 250 250 / 250 Premix 2,500 mg In 250 ml @ 50 MCG/KG/MIN 26.82 mls/hr IV.CONT TITRATE PRN Rx#:[id number] Potassium Chlor 20 mEq/NACL 0. 1000 / 1000 45% Inj 1,000 ML @ 42 mls/hr IV .CONT .[id number] [facility] Rx#:[id number] Maxipime Inj 2,000 MG In NS Inj 100 / 100 100 / 100 100 / 100 100 ML @ 200 mls/hr IV.SIG Q8H MATHEW Rx#:[id number] Magnesium Sulfate 1 gm/D5W 100 100 / 100 ml Premix 100 ML @ 0 mls/hr IV. SIG .STK-MED ONE Rx#:[id number] Magnesium Sulfate Inj 2 GM In 100 / 100 NS Inj 96 ML @ 50 mls/hr IV.SIG ONCE ONE Rx#:[id number] KCl 20 mEq Premix Inj 20 meq In 200 / 200 100 ml @ 50 mls/hr IV.SIG Q2H MATHEW Rx#:[id number] Vancomycin Inj 1,500 MG In NS 515 / 515 250 / 250 Inj 500 ML @ 250 mls/hr IV.SIG Q12H MATHEW Rx#:[id number] Oral 240 / 240 480 / 480 Output: Urine 900 / 900 Other: # Emeses 8 - Constitutional no acute distress - Routine HEENT Exam Head: Present: normocephalic, atraumatic - Routine Respiratory Exam Absent: accessory muscle use - Routine Abdominal Exam Present: soft, normoactive bowel sounds. Absent: tenderness, distended <Alba Dubon - Last Filed: 12/15/17 10:50> Vital signs: Vital Signs 12/14/17 16:30 12/14/17 16:32 12/14/17 17:00 Temperature 101.6 F H Pulse Rate 106 H 108 H 109 H Respiratory Rate 18 Blood Pressure 148/77 H Pulse Oximetry 100 12/14/17 17:32 12/14/17 19:00 12/14/17 19:23 Temperature 99.4 F Pulse Rate 108 H 108 H Respiratory Rate 20 Blood Pressure 134/77 147/89 H Pulse Oximetry 97 12/14/17 23:00 12/14/17 23:36 12/14/17 23:50 Temperature 100.2 F H Pulse Rate 87 82 Respiratory Rate 22 20 Blood Pressure 159/74 H Pulse Oximetry 97 12/15/17 03:00 12/15/17 07:00 12/15/17 11:00 Temperature 99.2 F 97.6 F 97.8 F Pulse Rate 70 70 71 Respiratory Rate 20 18 20 Blood Pressure 160/93 H 173/94 H 144/78 H Pulse Oximetry 97 96 98 Intake & Output 0912/15/17 12/15/17 18:59 06:59 18:59 Intake Total 1340 / 1340 1745 / 1745 1115 / 1115 Output Total 900 / 900 Balance 1340 / 1340 845 / 845 1115 / 1115 Weight 88 kg Intake: IV 1100 / 1100 1265 / 1265 1115 / 1115 Brevibloc 2,500 mg/NS 250 mL 250 / 250 500 / 500 Premix 2,500 mg In 250 ml @ 50 MCG/KG/MIN 26.82 mls/hr IV.CONT TITRATE PRN Rx#:[id number] Potassium Chlor 20 mEq/NACL 0. 1000 / 1000 45% Inj 1,000 ML @ 42 mls/hr IV .CONT .[id number] [facility] Rx#:[id number] Maxipime Inj 2,000 MG In NS Inj 100 / 100 100 / 100 100 / 100 100 ML @ 200 mls/hr IV.SIG Q8H MATHEW Rx#:[id number] Magnesium Sulfate 1 gm/D5W 100 100 / 100 ml Premix 100 ML @ 0 mls/hr IV. SIG .STK-MED ONE Rx#:[id number] Magnesium Sulfate Inj 2 GM In 100 / 100 NS Inj 96 ML @ 50 mls/hr IV.SIG ONCE ONE Rx#:[id number] KCl 20 mEq Premix Inj 20 meq In 200 / 200 100 ml @ 50 mls/hr IV.SIG Q2H [facility] Rx#:[id number] Vancomycin Inj 1,500 MG In NS 515 / 515 515 / 515 Inj 500 ML @ 250 mls/hr IV.SIG Q12H [facility] Rx#:[id number] Oral 240 / 240 480 / 480 Output: Urine 900 / 900 Other: # Emeses 8 <Pauline Kuhn - Last Filed: 12/15/17 15:42> Results - Labs CBC & Chem 7: 12/15/17 04:35 12/15/17 08:52 Laboratory Results - last 24 hr 12/14/17 12/14/17 12/14/17 16:10 16:10 16:10 WBC RBC Hgb Hct MCV MCH MCHC RDW Plt Count MPV Neut % (Auto) Lymph % (Auto) [place] % (Auto) Eos % (Auto) Baso % (Auto) Neut # (Auto) Lymph # (Auto) [place] # (Auto) Eos # (Auto) Baso # (Auto) WBC Differential Differential Comment Sodium Potassium Chloride Carbon Dioxide Anion Gap BUN Creatinine Estimated GFR Random Glucose Lactic Acid Calcium Magnesium Total Bilirubin AST ALT Alkaline Phosphatase Total Creatine Kinase CK-MB (CK-2) CK-MB (CK-2) % Troponin I Total Protein Albumin TSH Urine Color Urine Clarity Urine pH Ur Specific [place] Urine Protein Urine Glucose (UA) Urine Ketones Urine Occult Blood Urine Nitrate Urine Bilirubin Urine Urobilinogen Ur Leukocyte Esterase Urine RBC Urine WBC Ur Squamous Epith Cells Urine Bacteria Urine Mucus Micro UA Comment Ur Microscopic Review Urine Culture Comments CSF Volume (1) 4.8 CSF Supernat Color (1) Clear CSF Gross Blood (1) Trace CSF Volume (2) 3.8 CSF Supernat Color (2) Clear CSF Gross Blood (2) Trace CSF Volume (3) 2.8 CSF Supernat Color (3) Clear CSF Gross Blood (3) 0 CSF Volume (4) 4.3 CSF Supernat Color (4) Clear CSF Gross Blood (4) 0 CSF WBC (4) 1 CSF RBC (4) 14 H CSF Neutrophils % 0 CSF Lymphocytes % 60 CSF Histiocytes 40 CSF Glucose 65 CSF LDH CSF Total Protein CSF N.mening B/E.coli K1 Cancelled CSF N.meningitidis A/Y Cancelled Urine Opiates Screen Ur Barbiturates Screen Ur Amphetamines Screen U Benzodiazepines Scrn Urine Cocaine Screen U Cannabinoids Screen Bacterial Ag Source Cancelled H.influenzae Type B Ag Cancelled N. meningitidis C/W 135 Cancelled Group B Strep Antigen Cancelled S. pneumoniae Antigen Cancelled 12/14/17 12/14/17 12/14/17 16:10 16:10 18:30 WBC RBC Hgb Hct MCV MCH MCHC RDW Plt Count MPV Neut % (Auto) Lymph % (Auto) [place] % (Auto) Eos % (Auto) Baso % (Auto) Neut # (Auto) Lymph # (Auto) [place] # (Auto) Eos # (Auto) Baso # (Auto) WBC Differential Differential Comment Sodium 135 L Potassium 3.6 Chloride 103 Carbon Dioxide 20.4 L Anion Gap 12 BUN 11 Creatinine 0.60 Estimated GFR Greater than 89 Random Glucose 102 Lactic Acid Calcium 8.6 Magnesium 2.1 Total Bilirubin 0.6 AST 39 H ALT 26 Alkaline Phosphatase 72 Total Creatine Kinase CK-MB (CK-2) CK-MB (CK-2) % Troponin I 0.89 H* D Total Protein 7.3 Albumin 3.6 TSH Urine Color Urine Clarity Urine pH Ur Specific [place] Urine Protein Urine Glucose (UA) Urine Ketones Urine Occult Blood Urine Nitrate Urine Bilirubin Urine Urobilinogen Ur Leukocyte Esterase Urine RBC Urine WBC Ur Squamous Epith Cells Urine Bacteria Urine Mucus Micro UA Comment Ur Microscopic Review Urine Culture Comments CSF Volume (1) CSF Supernat Color (1) CSF Gross Blood (1) CSF Volume (2) CSF Supernat Color (2) CSF Gross Blood (2) CSF Volume (3) CSF Supernat Color (3) CSF Gross Blood (3) CSF Volume (4) CSF Supernat Color (4) CSF Gross Blood (4) CSF WBC (4) CSF RBC (4) CSF Neutrophils % CSF Lymphocytes % CSF Histiocytes CSF Glucose CSF LDH 23 CSF Total Protein 27.2 CSF N.mening B/E.coli K1 CSF N.meningitidis A/Y Urine Opiates Screen Ur Barbiturates Screen Ur Amphetamines Screen U Benzodiazepines Scrn Urine Cocaine Screen U Cannabinoids Screen Bacterial Ag Source H.influenzae Type B Ag N. meningitidis C/W 135 Group B Strep Antigen S. pneumoniae Antigen 12/14/17 12/14/17 12/14/17 18:30 18:30 18:30 WBC 9.8 RBC 4.79 Hgb 14.3 Hct 42.1 MCV 87.8 MCH 29.9 MCHC 34.1 RDW 13.5 Plt Count 257 MPV 8.7 Neut % (Auto) 89.6 H Lymph % (Auto) 7.5 L [place] % (Auto) 2.6 Eos % (Auto) 0.0 Baso % (Auto) 0.3 Neut # (Auto) 8.7 H Lymph # (Auto) 0.7 L [place] # (Auto) 0.3 Eos # (Auto) 0.0 Baso # (Auto) 0.0 WBC Differential . Differential Comment Auto diff final Sodium Potassium Chloride Carbon Dioxide Anion Gap BUN Creatinine Estimated GFR Random Glucose Lactic Acid 0.6 Calcium Magnesium Total Bilirubin AST ALT Alkaline Phosphatase Total Creatine Kinase 317 H CK-MB (CK-2) 3.7 H CK-MB (CK-2) % 1.2 Troponin I Total Protein Albumin TSH Urine Color Urine Clarity Urine pH Ur Specific [place] Urine Protein Urine Glucose (UA) Urine Ketones Urine Occult Blood Urine Nitrate Urine Bilirubin Urine Urobilinogen Ur Leukocyte Esterase Urine RBC Urine WBC Ur Squamous Epith Cells Urine Bacteria Urine Mucus Micro UA Comment Ur Microscopic Review Urine Culture Comments CSF Volume (1) CSF Supernat Color (1) CSF Gross Blood (1) CSF Volume (2) CSF Supernat Color (2) CSF Gross Blood (2) CSF Volume (3) CSF Supernat Color (3) CSF Gross Blood (3) CSF Volume (4) CSF Supernat Color (4) CSF Gross Blood (4) CSF WBC (4) CSF RBC (4) CSF Neutrophils % CSF Lymphocytes % CSF Histiocytes CSF Glucose CSF LDH CSF Total Protein CSF N.mening B/E.coli K1 CSF N.meningitidis A/Y Urine Opiates Screen Ur Barbiturates Screen Ur Amphetamines Screen U Benzodiazepines Scrn Urine Cocaine Screen U Cannabinoids Screen Bacterial Ag Source H.influenzae Type B Ag N. meningitidis C/W 135 Group B Strep Antigen S. pneumoniae Antigen 12/14/17 12/14/17 12/15/17 18:30 18:30 00:07 WBC RBC Hgb Hct MCV MCH MCHC RDW Plt Count MPV Neut % (Auto) Lymph % (Auto) [place] % (Auto) Eos % (Auto) Baso % (Auto) Neut # (Auto) Lymph # (Auto) [place] # (Auto) Eos # (Auto) Baso # (Auto) WBC Differential Differential Comment Sodium Potassium Cancelled Chloride Carbon Dioxide Anion Gap BUN Creatinine Estimated GFR Random Glucose Lactic Acid Calcium Magnesium Cancelled Total Bilirubin AST ALT Alkaline Phosphatase Total Creatine Kinase CK-MB (CK-2) CK-MB (CK-2) % Troponin I Cancelled 0.84 H* Total Protein Albumin TSH Urine Color Urine Clarity Urine pH Ur Specific [place] Urine Protein Urine Glucose (UA) Urine Ketones Urine Occult Blood Urine Nitrate Urine Bilirubin Urine Urobilinogen Ur Leukocyte Esterase Urine RBC Urine WBC Ur Squamous Epith Cells Urine Bacteria Urine Mucus Micro UA Comment Ur Microscopic Review Urine Culture Comments CSF Volume (1) CSF Supernat Color (1) CSF Gross Blood (1) CSF Volume (2) CSF Supernat Color (2) CSF Gross Blood (2) CSF Volume (3) CSF Supernat Color (3) CSF Gross Blood (3) CSF Volume (4) CSF Supernat Color (4) CSF Gross Blood (4) CSF WBC (4) CSF RBC (4) CSF Neutrophils % CSF Lymphocytes % CSF Histiocytes CSF Glucose CSF LDH CSF Total Protein CSF N.mening B/E.coli K1 CSF N.meningitidis A/Y Urine Opiates Screen Ur Barbiturates Screen Ur Amphetamines Screen U Benzodiazepines Scrn Urine Cocaine Screen U Cannabinoids Screen Bacterial Ag Source H.influenzae Type B Ag N. meningitidis C/W 135 Group B Strep Antigen S. pneumoniae Antigen 12/15/17 12/15/17 12/15/17 01:50 01:50 04:35 WBC 8.6 RBC 4.41 Hgb 13.1 Hct 39.0 MCV 88.4 MCH 29.6 MCHC 33.5 RDW 13.2 Plt Count 333 MPV 7.7 Neut % (Auto) 68.9 Lymph % (Auto) 22.0 [place] % (Auto) 8.8 H Eos % (Auto) 0.0 Baso % (Auto) 0.3 Neut # (Auto) 5.9 Lymph # (Auto) 1.9 [place] # (Auto) 0.8 Eos # (Auto) 0.0 Baso # (Auto) 0.0 WBC Differential . Differential Comment Auto diff final Sodium Potassium Chloride Carbon Dioxide Anion Gap BUN Creatinine Estimated GFR Random Glucose Lactic Acid Calcium Magnesium Total Bilirubin AST ALT Alkaline Phosphatase Total Creatine Kinase CK-MB (CK-2) CK-MB (CK-2) % Troponin I Total Protein Albumin TSH Urine Color Yellow Urine Clarity Clear Urine pH 7.0 Ur Specific [place] 1.012 Urine Protein Negative Urine Glucose (UA) Negative Urine Ketones 20 Urine Occult Blood Moderate H Urine Nitrate Negative Urine Bilirubin Negative Urine Urobilinogen Less than 2 Ur Leukocyte Esterase Negative Urine RBC 4 H Urine WBC 1 Ur Squamous Epith Cells <1 Urine Bacteria Few H Urine Mucus Few H Micro UA Comment Culture not ind Ur Microscopic Review Not Reportable Urine Culture Comments Culture not ind CSF Volume (1) CSF Supernat Color (1) CSF Gross Blood (1) CSF Volume (2) CSF Supernat Color (2) CSF Gross Blood (2) CSF Volume (3) CSF Supernat Color (3) CSF Gross Blood (3) CSF Volume (4) CSF Supernat Color (4) CSF Gross Blood (4) CSF WBC (4) CSF RBC (4) CSF Neutrophils % CSF Lymphocytes % CSF Histiocytes CSF Glucose CSF LDH CSF Total Protein CSF N.mening B/E.coli K1 CSF N.meningitidis A/Y Urine Opiates Screen Pos H Ur Barbiturates Screen Neg Ur Amphetamines Screen Neg U Benzodiazepines Scrn Neg Urine Cocaine Screen Neg U Cannabinoids Screen Pos H Bacterial Ag Source H.influenzae Type B Ag N. meningitidis C/W 135 Group B Strep Antigen S. pneumoniae Antigen 12/15/17 12/15/17 12/15/17 04:35 04:35 08:52 WBC RBC Hgb Hct MCV MCH MCHC RDW Plt Count MPV Neut % (Auto) Lymph % (Auto) [place] % (Auto) Eos % (Auto) Baso % (Auto) Neut # (Auto) Lymph # (Auto) [place] # (Auto) Eos # (Auto) Baso # (Auto) WBC Differential Differential Comment Sodium Potassium 3.4 L 3.9 Chloride Carbon Dioxide Anion Gap BUN Creatinine Estimated GFR Random Glucose Lactic Acid Calcium Magnesium 2.2 Total Bilirubin AST ALT Alkaline Phosphatase Total Creatine Kinase CK-MB (CK-2) CK-MB (CK-2) % Troponin I Total Protein Albumin TSH 0.181 L Urine Color Urine Clarity Urine pH Ur Specific [place] Urine Protein Urine Glucose (UA) Urine Ketones Urine Occult Blood Urine Nitrate Urine Bilirubin Urine Urobilinogen Ur Leukocyte Esterase Urine RBC Urine WBC Ur Squamous Epith Cells Urine Bacteria Urine Mucus Micro UA Comment Ur Microscopic Review Urine Culture Comments CSF Volume (1) CSF Supernat Color (1) CSF Gross Blood (1) CSF Volume (2) CSF Supernat Color (2) CSF Gross Blood (2) CSF Volume (3) CSF Supernat Color (3) CSF Gross Blood (3) CSF Volume (4) CSF Supernat Color (4) CSF Gross Blood (4) CSF WBC (4) CSF RBC (4) CSF Neutrophils % CSF Lymphocytes % CSF Histiocytes CSF Glucose CSF LDH CSF Total Protein CSF N.mening B/E.coli K1 CSF N.meningitidis A/Y Urine Opiates Screen Ur Barbiturates Screen Ur Amphetamines Screen U Benzodiazepines Scrn Urine Cocaine Screen U Cannabinoids Screen Bacterial Ag Source H.influenzae Type B Ag N. meningitidis C/W 135 Group B Strep Antigen S. pneumoniae Antigen Microbiology 12/14/17 16:10 Lumbar Puncture Gram Stain - Final 12/14/17 16:10 Lumbar Puncture CSF Culture - Preliminary No growth in 24 hours 12/13/17 08:41 Blood - Peripheral Aerobic Blood Culture - Preliminary No growth in 1 day 12/13/17 08:41 Blood - Peripheral Anaerobic Blood Culture - Preliminary No growth in 1 day 12/13/17 08:23 Blood - Peripheral Aerobic Blood Culture - Preliminary No growth in 1 day 12/13/17 08:23 Blood - Peripheral Anaerobic Blood Culture - Preliminary No growth in 1 day 12/13/17 08:28 Blood - Peripheral Aerobic Blood Culture - Preliminary No growth in 1 day 12/13/17 08:28 Blood - Peripheral Anaerobic Blood Culture - Preliminary No growth in 1 day - Imaging Impressions Bile Acid Absorption NM 12/14/17 00:00 CONCLUSION: 1. Negative examination. No evidence for cystic duct or biliary ductal obstruction. Head MRI 12/14/17 13:20 CONCLUSION: 1. No acute intracranial abnormality identified. 2. No abnormal enhancement identified. Chest X-Ray 12/14/17 19:23 CONCLUSION: The lungs are clear. <Alba Dubon - Last Filed: 12/15/17 10:50> - Labs CBC & Chem 7: 12/15/17 04:35 12/15/17 08:52 Laboratory Results - last 24 hr 12/14/17 12/14/17 12/14/17 16:10 16:10 16:10 WBC RBC Hgb Hct MCV MCH MCHC RDW Plt Count MPV Neut % (Auto) Lymph % (Auto) [place] % (Auto) Eos % (Auto) Baso % (Auto) Neut # (Auto) Lymph # (Auto) [place] # (Auto) Eos # (Auto) Baso # (Auto) WBC Differential Differential Comment Sodium Potassium Chloride Carbon Dioxide Anion Gap BUN Creatinine Estimated GFR Random Glucose Lactic Acid Calcium Magnesium Total Bilirubin AST ALT Alkaline Phosphatase Total Creatine Kinase CK-MB (CK-2) CK-MB (CK-2) % Troponin I Total Protein Albumin TSH Free T4 Urine Color Urine Clarity Urine pH Ur Specific [place] Urine Protein Urine Glucose (UA) Urine Ketones Urine Occult Blood Urine Nitrate Urine Bilirubin Urine Urobilinogen Ur Leukocyte Esterase Urine RBC Urine WBC Ur Squamous Epith Cells Urine Bacteria Urine Mucus Micro UA Comment Ur Microscopic Review Urine Culture Comments CSF Volume (1) 4.8 CSF Supernat Color (1) Clear CSF Gross Blood (1) Trace CSF Volume (2) 3.8 CSF Supernat Color (2) Clear CSF Gross Blood (2) Trace CSF Volume (3) 2.8 CSF Supernat Color (3) Clear CSF Gross Blood (3) 0 CSF Volume (4) 4.3 CSF Supernat Color (4) Clear CSF Gross Blood (4) 0 CSF WBC (4) 1 CSF RBC (4) 14 H CSF Neutrophils % 0 CSF Lymphocytes % 60 CSF Histiocytes 40 CSF Glucose 65 CSF LDH CSF Total Protein CSF N.mening B/E.coli K1 Cancelled CSF N.meningitidis A/Y Cancelled Urine Opiates Screen Ur Barbiturates Screen Ur Amphetamines Screen U Benzodiazepines Scrn Urine Cocaine Screen U Cannabinoids Screen Bacterial Ag Source Cancelled H.influenzae Type B Ag Cancelled N. meningitidis C/W 135 Cancelled Group B Strep Antigen Cancelled S. pneumoniae Antigen Cancelled 12/14/17 12/14/17 12/14/17 16:10 16:10 18:30 WBC RBC Hgb Hct MCV MCH MCHC RDW Plt Count MPV Neut % (Auto) Lymph % (Auto) [place] % (Auto) Eos % (Auto) Baso % (Auto) Neut # (Auto) Lymph # (Auto) [place] # (Auto) Eos # (Auto) Baso # (Auto) WBC Differential Differential Comment Sodium 135 L Potassium 3.6 Chloride 103 Carbon Dioxide 20.4 L Anion Gap 12 BUN 11 Creatinine 0.60 Estimated GFR Greater than 89 Random Glucose 102 Lactic Acid Calcium 8.6 Magnesium 2.1 Total Bilirubin 0.6 AST 39 H ALT 26 Alkaline Phosphatase 72 Total Creatine Kinase CK-MB (CK-2) CK-MB (CK-2) % Troponin I 0.89 H* D Total Protein 7.3 Albumin 3.6 TSH Free T4 Urine Color Urine Clarity Urine pH Ur Specific [place] Urine Protein Urine Glucose (UA) Urine Ketones Urine Occult Blood Urine Nitrate Urine Bilirubin Urine Urobilinogen Ur Leukocyte Esterase Urine RBC Urine WBC Ur Squamous Epith Cells Urine Bacteria Urine Mucus Micro UA Comment Ur Microscopic Review Urine Culture Comments CSF Volume (1) CSF Supernat Color (1) CSF Gross Blood (1) CSF Volume (2) CSF Supernat Color (2) CSF Gross Blood (2) CSF Volume (3) CSF Supernat Color (3) CSF Gross Blood (3) CSF Volume (4) CSF Supernat Color (4) CSF Gross Blood (4) CSF WBC (4) CSF RBC (4) CSF Neutrophils % CSF Lymphocytes % CSF Histiocytes CSF Glucose CSF LDH 23 CSF Total Protein 27.2 CSF N.mening B/E.coli K1 CSF N.meningitidis A/Y Urine Opiates Screen Ur Barbiturates Screen Ur Amphetamines Screen U Benzodiazepines Scrn Urine Cocaine Screen U Cannabinoids Screen Bacterial Ag Source H.influenzae Type B Ag N. meningitidis C/W 135 Group B Strep Antigen S. pneumoniae Antigen 12/14/17 12/14/1712/14/18 18:30 18:30 18:30 WBC 9.8 RBC 4.79 Hgb 14.3 Hct 42.1 MCV 87.8 MCH 29.9 MCHC 34.1 RDW 13.5 Plt Count 257 MPV 8.7 Neut % (Auto) 89.6 H Lymph % (Auto) 7.5 L [place] % (Auto) 2.6 Eos % (Auto) 0.0 Baso % (Auto) 0.3 Neut # (Auto) 8.7 H Lymph # (Auto) 0.7 L [place] # (Auto) 0.3 Eos # (Auto) 0.0 Baso # (Auto) 0.0 WBC Differential . Differential Comment Auto diff final Sodium Potassium Chloride Carbon Dioxide Anion Gap BUN Creatinine Estimated GFR Random Glucose Lactic Acid 0.6 Calcium Magnesium Total Bilirubin AST ALT Alkaline Phosphatase Total Creatine Kinase 317 H CK-MB (CK-2) 3.7 H CK-MB (CK-2) % 1.2 Troponin I Total Protein Albumin TSH Free T4 Urine Color Urine Clarity Urine pH Ur Specific [place] Urine Protein Urine Glucose (UA) Urine Ketones Urine Occult Blood Urine Nitrate Urine Bilirubin Urine Urobilinogen Ur Leukocyte Esterase Urine RBC Urine WBC Ur Squamous Epith Cells Urine Bacteria Urine Mucus Micro UA Comment Ur Microscopic Review Urine Culture Comments CSF Volume (1) CSF Supernat Color (1) CSF Gross Blood (1) CSF Volume (2) CSF Supernat Color (2) CSF Gross Blood (2) CSF Volume (3) CSF Supernat Color (3) CSF Gross Blood (3) CSF Volume (4) CSF Supernat Color (4) CSF Gross Blood (4) CSF WBC (4) CSF RBC (4) CSF Neutrophils % CSF Lymphocytes % CSF Histiocytes CSF Glucose CSF LDH CSF Total Protein CSF N.mening B/E.coli K1 CSF N.meningitidis A/Y Urine Opiates Screen Ur Barbiturates Screen Ur Amphetamines Screen U Benzodiazepines Scrn Urine Cocaine Screen U Cannabinoids Screen Bacterial Ag Source H.influenzae Type B Ag N. meningitidis C/W 135 Group B Strep Antigen S. pneumoniae Antigen 12/14/17 12/14/17 12/15/17 18:30 18:30 00:07 WBC RBC Hgb Hct MCV MCH MCHC RDW Plt Count MPV Neut % (Auto) Lymph % (Auto) [place] % (Auto) Eos % (Auto) Baso % (Auto) Neut # (Auto) Lymph # (Auto) [place] # (Auto) Eos # (Auto) Baso # (Auto) WBC Differential Differential Comment Sodium Potassium Cancelled Chloride Carbon Dioxide Anion Gap BUN Creatinine Estimated GFR Random Glucose Lactic Acid Calcium Magnesium Cancelled Total Bilirubin AST ALT Alkaline Phosphatase Total Creatine Kinase CK-MB (CK-2) CK-MB (CK-2) % Troponin I Cancelled 0.84 H* Total Protein Albumin TSH Free T4 Urine Color Urine Clarity Urine pH Ur Specific [place] Urine Protein Urine Glucose (UA) Urine Ketones Urine Occult Blood Urine Nitrate Urine Bilirubin Urine Urobilinogen Ur Leukocyte Esterase Urine RBC Urine WBC Ur Squamous Epith Cells Urine Bacteria Urine Mucus Micro UA Comment Ur Microscopic Review Urine Culture Comments CSF Volume (1) CSF Supernat Color (1) CSF Gross Blood (1) CSF Volume (2) CSF Supernat Color (2) CSF Gross Blood (2) CSF Volume (3) CSF Supernat Color (3) CSF Gross Blood (3) CSF Volume (4) CSF Supernat Color (4) CSF Gross Blood (4) CSF WBC (4) CSF RBC (4) CSF Neutrophils % CSF Lymphocytes % CSF Histiocytes CSF Glucose CSF LDH CSF Total Protein CSF N.mening B/E.coli K1 CSF N.meningitidis A/Y Urine Opiates Screen Ur Barbiturates Screen Ur Amphetamines Screen U Benzodiazepines Scrn Urine Cocaine Screen U Cannabinoids Screen Bacterial Ag Source H.influenzae Type B Ag N. meningitidis C/W 135 Group B Strep Antigen S. pneumoniae Antigen 12/15/17 12/15/17 12/15/17 01:50 01:50 04:35 WBC 8.6 RBC 4.41 Hgb 13.1 Hct 39.0 MCV 88.4 MCH 29.6 MCHC 33.5 RDW 13.2 Plt Count 333 MPV 7.7 Neut % (Auto) 68.9 Lymph % (Auto) 22.0 [place] % (Auto) 8.8 H Eos % (Auto) 0.0 Baso % (Auto) 0.3 Neut # (Auto) 5.9 Lymph # (Auto) 1.9 [place] # (Auto) 0.8 Eos # (Auto) 0.0 Baso # (Auto) 0.0 WBC Differential . Differential Comment Auto diff final Sodium Potassium Chloride Carbon Dioxide Anion Gap BUN Creatinine Estimated GFR Random Glucose Lactic Acid Calcium Magnesium Total Bilirubin AST ALT Alkaline Phosphatase Total Creatine Kinase CK-MB (CK-2) CK-MB (CK-2) % Troponin I Total Protein Albumin TSH Free T4 Urine Color Yellow Urine Clarity Clear Urine pH 7.0 Ur Specific [place] 1.012 Urine Protein Negative Urine Glucose (UA) Negative Urine Ketones 20 Urine Occult Blood Moderate H Urine Nitrate Negative Urine Bilirubin Negative Urine Urobilinogen Less than 2 Ur Leukocyte Esterase Negative Urine RBC 4 H Urine WBC 1 Ur Squamous Epith Cells <1 Urine Bacteria Few H Urine Mucus Few H Micro UA Comment Culture not ind Ur Microscopic Review Not Reportable Urine Culture Comments Culture not ind CSF Volume (1) CSF Supernat Color (1) CSF Gross Blood (1) CSF Volume (2) CSF Supernat Color (2) CSF Gross Blood (2) CSF Volume (3) CSF Supernat Color (3) CSF Gross Blood (3) CSF Volume (4) CSF Supernat Color (4) CSF Gross Blood (4) CSF WBC (4) CSF RBC (4) CSF Neutrophils % CSF Lymphocytes % CSF Histiocytes CSF Glucose CSF LDH CSF Total Protein CSF N.mening B/E.coli K1 CSF N.meningitidis A/Y Urine Opiates Screen Pos H Ur Barbiturates Screen Neg Ur Amphetamines Screen Neg U Benzodiazepines Scrn Neg Urine Cocaine Screen Neg U Cannabinoids Screen Pos H Bacterial Ag Source H.influenzae Type B Ag N. meningitidis C/W 135 Group B Strep Antigen S. pneumoniae Antigen 12/15/17 12/15/17 12/15/17 04:35 04:35 08:52 WBC RBC Hgb Hct MCV MCH MCHC RDW Plt Count MPV Neut % (Auto) Lymph % (Auto) [place] % (Auto) Eos % (Auto) Baso % (Auto) Neut # (Auto) Lymph # (Auto) [place] # (Auto) Eos # (Auto) Baso # (Auto) WBC Differential Differential Comment Sodium Potassium 3.4 L 3.9 Chloride Carbon Dioxide Anion Gap BUN Creatinine Estimated GFR Random Glucose Lactic Acid Calcium Magnesium 2.2 Total Bilirubin AST ALT Alkaline Phosphatase Total Creatine Kinase CK-MB (CK-2) CK-MB (CK-2) % Troponin I Total Protein Albumin TSH 0.181 L Free T4 Urine Color Urine Clarity Urine pH Ur Specific [place] Urine Protein Urine Glucose (UA) Urine Ketones Urine Occult Blood Urine Nitrate Urine Bilirubin Urine Urobilinogen Ur Leukocyte Esterase Urine RBC Urine WBC Ur Squamous Epith Cells Urine Bacteria Urine Mucus Micro UA Comment Ur Microscopic Review Urine Culture Comments CSF Volume (1) CSF Supernat Color (1) CSF Gross Blood (1) CSF Volume (2) CSF Supernat Color (2) CSF Gross Blood (2) CSF Volume (3) CSF Supernat Color (3) CSF Gross Blood (3) CSF Volume (4) CSF Supernat Color (4) CSF Gross Blood (4) CSF WBC (4) CSF RBC (4) CSF Neutrophils % CSF Lymphocytes % CSF Histiocytes CSF Glucose CSF LDH CSF Total Protein CSF N.mening B/E.coli K1 CSF N.meningitidis A/Y Urine Opiates Screen Ur Barbiturates Screen Ur Amphetamines Screen U Benzodiazepines Scrn Urine Cocaine Screen U Cannabinoids Screen Bacterial Ag Source H.influenzae Type B Ag N. meningitidis C/W 135 Group B Strep Antigen S. pneumoniae Antigen 12/15/17 08:52 WBC RBC Hgb Hct MCV MCH MCHC RDW Plt Count MPV Neut % (Auto) Lymph % (Auto) [place] % (Auto) Eos % (Auto) Baso % (Auto) Neut # (Auto) Lymph # (Auto) [place] # (Auto) Eos # (Auto) Baso # (Auto) WBC Differential Differential Comment Sodium Potassium Chloride Carbon Dioxide Anion Gap BUN Creatinine Estimated GFR Random Glucose Lactic Acid Calcium Magnesium Total Bilirubin AST ALT Alkaline Phosphatase Total Creatine Kinase CK-MB (CK-2) CK-MB (CK-2) % Troponin I Total Protein Albumin TSH Free T4 1.60 H Urine Color Urine Clarity Urine pH Ur Specific [place] Urine Protein Urine Glucose (UA) Urine Ketones Urine Occult Blood Urine Nitrate Urine Bilirubin Urine Urobilinogen Ur Leukocyte Esterase Urine RBC Urine WBC Ur Squamous Epith Cells Urine Bacteria Urine Mucus Micro UA Comment Ur Microscopic Review Urine Culture Comments CSF Volume (1) CSF Supernat Color (1) CSF Gross Blood (1) CSF Volume (2) CSF Supernat Color (2) CSF Gross Blood (2) CSF Volume (3) CSF Supernat Color (3) CSF Gross Blood (3) CSF Volume (4) CSF Supernat Color (4) CSF Gross Blood (4) CSF WBC (4) CSF RBC (4) CSF Neutrophils % CSF Lymphocytes % CSF Histiocytes CSF Glucose CSF LDH CSF Total Protein CSF N.mening B/E.coli K1 CSF N.meningitidis A/Y Urine Opiates Screen Ur Barbiturates Screen Ur Amphetamines Screen U Benzodiazepines Scrn Urine Cocaine Screen U Cannabinoids Screen Bacterial Ag Source H.influenzae Type B Ag N. meningitidis C/W 135 Group B Strep Antigen S. pneumoniae Antigen Microbiology 12/14/17 16:10 Fluid - Other Acid Fast Bacilli Smear - Final No acid fast bacilli seen 12/15/17 10:44 Nasal Wash Influenza Types A,B Antigen - Final Negative for FLU A and B antigen Infection due to influenza A or B cannot be ruled out since the antigen present in the sample may be below the detection limit of the test. 12/13/17 08:41 Blood - Peripheral Aerobic Blood Culture - Preliminary No growth in 2 days 12/13/17 08:41 Blood - Peripheral Anaerobic Blood Culture - Preliminary No growth in 2 days 12/13/17 08:23 Blood - Peripheral Aerobic Blood Culture - Preliminary No growth in 2 days 12/13/17 08:23 Blood - Peripheral Anaerobic Blood Culture - Preliminary No growth in 2 days 12/13/17 08:28 Blood - Peripheral Aerobic Blood Culture - Preliminary No growth in 2 days 12/13/17 08:28 Blood - Peripheral Anaerobic Blood Culture - Preliminary No growth in 2 days 12/14/17 16:10 Lumbar Puncture Gram Stain - Final 12/14/17 16:10 Lumbar Puncture CSF Culture - Preliminary No growth in 24 hours - Imaging Impressions Lumbar Puncture Fluoroscopy 12/14/17 00:00 CONCLUSION: 1. Uncomplicated fluoroscopically guided lumbar puncture. Head MRI 12/14/17 13:20 CONCLUSION: 1. No acute intracranial abnormality identified. 2. No abnormal enhancement identified. Chest X-Ray 12/14/17 19:23 CONCLUSION: The lungs are clear. <Pauline Kuhn - Last Filed: 12/15/17 15:42> Assessment and Plan - Plan - Plan Assessment: - Intractable nausea/vomiting EGD done due to reports of NSAID use EGD --> Class A esophagitis, biopsy. Erythematous gastritis in the gastric antrum, biopsy. Normal duodenal mucosa in the bulb and second portion of the duodenum. HIDA scan --> No evidence for cystic duct or biliary ductal obstruction. - Constipation- no BM in a few days. States stools are irregular at home secondary to IBS. Denies more constipation or diarrhea. - Fevers and headache- unclear etiology- being worked up for rule out meningitis - LP ordered and MR head (12/15) Transferred to [facility] ICU for non-sustained V-tach last night. Cardiology following. LP and MRI head negative. Pt continues to have nausea. Plan: Continue with anti-emetics ID following EGD biopsy pending If symptoms persist with no clear etiology, consider GES on Monday Bowel regimen Stool studies if BM Continue with IV fluids Further recommendations to follow Pt has been seen and examined by myself and Dr. Kuhn and this note is written on his behalf <Alba Dubon - Last Filed: 12/15/17 10:50> - Plan Seen and examined with FIELD CARE MANAGER, some improvement in symptoms. ? gastroeneteritis. Neuro ramírez in progress. If no better over the weekend consider GES and colonoscopy next week. Discussed with Maricel. The exam, history, and the medical decision-making described in the above note were completed with the assistance of the mid-level provider. I reviewed and agree with the findings presented. I attest that I had a [id number] encounter with the patient on the same day, and personally performed and documented my assessment and findings in the medical record. <Pauline Kuhn - Last Filed: 12/15/17 15:42>
--- NOTE | 2017-12-15 12:20 | P.PN ---
Subjective Interval history: Nursing reports that the patient is still having some dry heaving. Daughters at the bedside -says that patient had about 4 episodes of dry heaving/vomiting since last night which is an improvement compared to the first 24 hours and the patient was admitted. Patient herself says she feels better compared to day of admission. Antibiotics were started yesterday, fever is down now 100.2. Potassium level actually was stable that was rechecked around the time of the patient's ventricular tachycardia. Patient is currently on esmolol drip and potassium infusion. Physical Exam Vital signs: Vital Signs 12/14/17 13:00 12/14/17 14:00 12/14/17 16:30 Temperature Pulse Rate 101 H 100 H 106 H Respiratory Rate Blood Pressure Pulse Oximetry 12/14/17 16:32 12/14/17 17:00 12/14/17 17:32 Temperature 101.6 F H Pulse Rate 108 H 109 H Respiratory Rate 18 Blood Pressure 148/77 H 134/77 Pulse Oximetry 100 12/14/17 19:00 12/14/17 19:23 12/14/17 23:00 Temperature 99.4 F Pulse Rate 108 H 108 H Respiratory Rate 20 22 Blood Pressure 147/89 H Pulse Oximetry 97 12/14/17 23:36 12/14/17 23:50 12/15/17 03:00 Temperature 100.2 F H 99.2 F Pulse Rate 87 82 70 Respiratory Rate 20 20 Blood Pressure 159/74 H 160/93 H Pulse Oximetry 97 97 12/15/17 07:00 Temperature 97.6 F Pulse Rate 70 Respiratory Rate 18 Blood Pressure 173/94 H Pulse Oximetry 96 Intake & Output 12/14/17 12/15/17 12/15/17 18:59 06:59 18:59 Intake Total 1340 / 1340 1745 / 1745 600 / 600 Output Total 900 / 900 Balance 1340 / 1340 845 / 845 600 / 600 Weight 88 kg Intake: IV 1100 / 1100 1265 / 1265 600 / 600 Brevibloc 2,500 mg/NS 250 mL 250 / 250 250 / 250 Premix 2,500 mg In 250 ml @ 50 MCG/KG/MIN 26.82 mls/hr IV.CONT TITRATE PRN Rx#:[id number] Potassium Chlor 20 mEq/NACL 0. 1000 / 1000 45% Inj 1,000 ML @ 42 mls/hr IV .CONT .[id number] [facility] Rx#:[id number] Maxipime Inj 2,000 MG In NS Inj 100 / 100 100 / 100 100 / 100 100 ML @ 200 mls/hr IV.SIG Q8H [facility] Rx#:[id number] Magnesium Sulfate 1 gm/D5W 100 100 / 100 ml Premix 100 ML @ 0 mls/hr IV. SIG .STK-MED ONE Rx#:[id number] Magnesium Sulfate Inj 2 GM In 100 / 100 NS Inj 96 ML @ 50 mls/hr IV.SIG ONCE ONE Rx#:[id number] KCl 20 mEq Premix Inj 20 meq In 200 / 200 100 ml @ 50 mls/hr IV.SIG Q2H [facility] Rx#:[id number] Vancomycin Inj 1,500 MG In NS 515 / 515 250 / 250 Inj 500 ML @ 250 mls/hr IV.SIG Q12H [facility] Rx#:[id number] Oral 240 / 240 480 / 480 Output: Urine 900 / 900 Other: # Emeses 8 Narrative: Heart sounds are regular rate rhythm, no murmurs Clear lungs bilaterally, unlabored breathing Lying in chair, no acute distress, normoactive positive bowel sounds Results - Labs CBC & Chem 7: 12/15/17 04:35 12/15/17 08:52 Laboratory Results - last 24 hr 12/14/17 12/14/17 12/14/17 16:10 16:10 16:10 WBC RBC Hgb Hct MCV MCH MCHC RDW Plt Count MPV Neut % (Auto) Lymph % (Auto) [place] % (Auto) Eos % (Auto) Baso % (Auto) Neut # (Auto) Lymph # (Auto) [place] # (Auto) Eos # (Auto) Baso # (Auto) WBC Differential Differential Comment Sodium Potassium Chloride Carbon Dioxide Anion Gap BUN Creatinine Estimated GFR Random Glucose Lactic Acid Calcium Magnesium Total Bilirubin AST ALT Alkaline Phosphatase Total Creatine Kinase CK-MB (CK-2) CK-MB (CK-2) % Troponin I Total Protein Albumin TSH Free T4 Urine Color Urine Clarity Urine pH Ur Specific [place] Urine Protein Urine Glucose (UA) Urine Ketones Urine Occult Blood Urine Nitrate Urine Bilirubin Urine Urobilinogen Ur Leukocyte Esterase Urine RBC Urine WBC Ur Squamous Epith Cells Urine Bacteria Urine Mucus Micro UA Comment Ur Microscopic Review Urine Culture Comments CSF Volume (1) 4.8 CSF Supernat Color (1) Clear CSF Gross Blood (1) Trace CSF Volume (2) 3.8 CSF Supernat Color (2) Clear CSF Gross Blood (2) Trace CSF Volume (3) 2.8 CSF Supernat Color (3) Clear CSF Gross Blood (3) 0 CSF Volume (4) 4.3 CSF Supernat Color (4) Clear CSF Gross Blood (4) 0 CSF WBC (4) 1 CSF RBC (4) 14 H CSF Neutrophils % 0 CSF Lymphocytes % 60 CSF Histiocytes 40 CSF Glucose 65 CSF LDH CSF Total Protein CSF N.mening B/E.coli K1 Cancelled CSF N.meningitidis A/Y Cancelled Urine Opiates Screen Ur Barbiturates Screen Ur Amphetamines Screen U Benzodiazepines Scrn Urine Cocaine Screen U Cannabinoids Screen Bacterial Ag Source Cancelled H.influenzae Type B Ag Cancelled N. meningitidis C/W 135 Cancelled Group B Strep Antigen Cancelled S. pneumoniae Antigen Cancelled 12/14/17 12/14/17 12/14/17 16:10 16:10 18:30 WBC RBC Hgb Hct MCV MCH MCHC RDW Plt Count MPV Neut % (Auto) Lymph % (Auto) [place] % (Auto) Eos % (Auto) Baso % (Auto) Neut # (Auto) Lymph # (Auto) [place] # (Auto) Eos # (Auto) Baso # (Auto) WBC Differential Differential Comment Sodium 135 L Potassium 3.6 Chloride 103 Carbon Dioxide 20.4 L Anion Gap 12 BUN 11 Creatinine 0.60 Estimated GFR Greater than 89 Random Glucose 102 Lactic Acid Calcium 8.6 Magnesium 2.1 Total Bilirubin 0.6 AST 39 H ALT 26 Alkaline Phosphatase 72 Total Creatine Kinase CK-MB (CK-2) CK-MB (CK-2) % Troponin I 0.89 H* D Total Protein 7.3 Albumin 3.6 TSH Free T4 Urine Color Urine Clarity Urine pH Ur Specific [place] Urine Protein Urine Glucose (UA) Urine Ketones Urine Occult Blood Urine Nitrate Urine Bilirubin Urine Urobilinogen Ur Leukocyte Esterase Urine RBC Urine WBC Ur Squamous Epith Cells Urine Bacteria Urine Mucus Micro UA Comment Ur Microscopic Review Urine Culture Comments CSF Volume (1) CSF Supernat Color (1) CSF Gross Blood (1) CSF Volume (2) CSF Supernat Color (2) CSF Gross Blood (2) CSF Volume (3) CSF Supernat Color (3) CSF Gross Blood (3) CSF Volume (4) CSF Supernat Color (4) CSF Gross Blood (4) CSF WBC (4) CSF RBC (4) CSF Neutrophils % CSF Lymphocytes % CSF Histiocytes CSF Glucose CSF LDH 23 CSF Total Protein 27.2 CSF N.mening B/E.coli K1 CSF N.meningitidis A/Y Urine Opiates Screen Ur Barbiturates Screen Ur Amphetamines Screen U Benzodiazepines Scrn Urine Cocaine Screen U Cannabinoids Screen Bacterial Ag Source H.influenzae Type B Ag N. meningitidis C/W 135 Group B Strep Antigen S. pneumoniae Antigen 12/14/17 12/14/17 12/14/17 18:30 18:30 18:30 WBC 9.8 RBC 4.79 Hgb 14.3 Hct 42.1 MCV 87.8 MCH 29.9 MCHC 34.1 RDW 13.5 Plt Count 257 MPV 8.7 Neut % (Auto) 89.6 H Lymph % (Auto) 7.5 L [place] % (Auto) 2.6 Eos % (Auto) 0.0 Baso % (Auto) 0.3 Neut # (Auto) 8.7 H Lymph # (Auto) 0.7 L [place] # (Auto) 0.3 Eos # (Auto) 0.0 Baso # (Auto) 0.0 WBC Differential . Differential Comment Auto diff final Sodium Potassium Chloride Carbon Dioxide Anion Gap BUN Creatinine Estimated GFR Random Glucose Lactic Acid 0.6 Calcium Magnesium Total Bilirubin AST ALT Alkaline Phosphatase Total Creatine Kinase 317 H CK-MB (CK-2) 3.7 H CK-MB (CK-2) % 1.2 Troponin I Total Protein Albumin TSH Free T4 Urine Color Urine Clarity Urine pH Ur Specific [place] Urine Protein Urine Glucose (UA) Urine Ketones Urine Occult Blood Urine Nitrate Urine Bilirubin Urine Urobilinogen Ur Leukocyte Esterase Urine RBC Urine WBC Ur Squamous Epith Cells Urine Bacteria Urine Mucus Micro UA Comment Ur Microscopic Review Urine Culture Comments CSF Volume (1) CSF Supernat Color (1) CSF Gross Blood (1) CSF Volume (2) CSF Supernat Color (2) CSF Gross Blood (2) CSF Volume (3) CSF Supernat Color (3) CSF Gross Blood (3) CSF Volume (4) CSF Supernat Color (4) CSF Gross Blood (4) CSF WBC (4) CSF RBC (4) CSF Neutrophils % CSF Lymphocytes % CSF Histiocytes CSF Glucose CSF LDH CSF Total Protein CSF N.mening B/E.coli K1 CSF N.meningitidis A/Y Urine Opiates Screen Ur Barbiturates Screen Ur Amphetamines Screen U Benzodiazepines Scrn Urine Cocaine Screen U Cannabinoids Screen Bacterial Ag Source H.influenzae Type B Ag N. meningitidis C/W 135 Group B Strep Antigen S. pneumoniae Antigen 12/14/17 12/14/17 12/15/17 18:30 18:30 00:07 WBC RBC Hgb Hct MCV MCH MCHC RDW Plt Count MPV Neut % (Auto) Lymph % (Auto) [place] % (Auto) Eos % (Auto) Baso % (Auto) Neut # (Auto) Lymph # (Auto) [place] # (Auto) Eos # (Auto) Baso # (Auto) WBC Differential Differential Comment Sodium Potassium Cancelled Chloride Carbon Dioxide Anion Gap BUN Creatinine Estimated GFR Random Glucose Lactic Acid Calcium Magnesium Cancelled Total Bilirubin AST ALT Alkaline Phosphatase Total Creatine Kinase CK-MB (CK-2) CK-MB (CK-2) % Troponin I Cancelled 0.84 H* Total Protein Albumin TSH Free T4 Urine Color Urine Clarity Urine pH Ur Specific [place] Urine Protein Urine Glucose (UA) Urine Ketones Urine Occult Blood Urine Nitrate Urine Bilirubin Urine Urobilinogen Ur Leukocyte Esterase Urine RBC Urine WBC Ur Squamous Epith Cells Urine Bacteria Urine Mucus Micro UA Comment Ur Microscopic Review Urine Culture Comments CSF Volume (1) CSF Supernat Color (1) CSF Gross Blood (1) CSF Volume (2) CSF Supernat Color (2) CSF Gross Blood (2) CSF Volume (3) CSF Supernat Color (3) CSF Gross Blood (3) CSF Volume (4) CSF Supernat Color (4) CSF Gross Blood (4) CSF WBC (4) CSF RBC (4) CSF Neutrophils % CSF Lymphocytes % CSF Histiocytes CSF Glucose CSF LDH CSF Total Protein CSF N.mening B/E.coli K1 CSF N.meningitidis A/Y Urine Opiates Screen Ur Barbiturates Screen Ur Amphetamines Screen U Benzodiazepines Scrn Urine Cocaine Screen U Cannabinoids Screen Bacterial Ag Source H.influenzae Type B Ag N. meningitidis C/W 135 Group B Strep Antigen S. pneumoniae Antigen 12/15/17 12/15/17 12/15/17 01:50 01:50 04:35 WBC 8.6 RBC 4.41 Hgb 13.1 Hct 39.0 MCV 88.4 MCH 29.6 MCHC 33.5 RDW 13.2 Plt Count 333 MPV 7.7 Neut % (Auto) 68.9 Lymph % (Auto) 22.0 [place] % (Auto) 8.8 H Eos % (Auto) 0.0 Baso % (Auto) 0.3 Neut # (Auto) 5.9 Lymph # (Auto) 1.9 [place] # (Auto) 0.8 Eos # (Auto) 0.0 Baso # (Auto) 0.0 WBC Differential . Differential Comment Auto diff final Sodium Potassium Chloride Carbon Dioxide Anion Gap BUN Creatinine Estimated GFR Random Glucose Lactic Acid Calcium Magnesium Total Bilirubin AST ALT Alkaline Phosphatase Total Creatine Kinase CK-MB (CK-2) CK-MB (CK-2) % Troponin I Total Protein Albumin TSH Free T4 Urine Color Yellow Urine Clarity Clear Urine pH 7.0 Ur Specific [place] 1.012 Urine Protein Negative Urine Glucose (UA) Negative Urine Ketones 20 Urine Occult Blood Moderate H Urine Nitrate Negative Urine Bilirubin Negative Urine Urobilinogen Less than 2 Ur Leukocyte Esterase Negative Urine RBC 4 H Urine WBC 1 Ur Squamous Epith Cells <1 Urine Bacteria Few H Urine Mucus Few H Micro UA Comment Culture not ind Ur Microscopic Review Not Reportable Urine Culture Comments Culture not ind CSF Volume (1) CSF Supernat Color (1) CSF Gross Blood (1) CSF Volume (2) CSF Supernat Color (2) CSF Gross Blood (2) CSF Volume (3) CSF Supernat Color (3) CSF Gross Blood (3) CSF Volume (4) CSF Supernat Color (4) CSF Gross Blood (4) CSF WBC (4) CSF RBC (4) CSF Neutrophils % CSF Lymphocytes % CSF Histiocytes CSF Glucose CSF LDH CSF Total Protein CSF N.mening B/E.coli K1 CSF N.meningitidis A/Y Urine Opiates Screen Pos H Ur Barbiturates Screen Neg Ur Amphetamines Screen Neg U Benzodiazepines Scrn Neg Urine Cocaine Screen Neg U Cannabinoids Screen Pos H Bacterial Ag Source H.influenzae Type B Ag N. meningitidis C/W 135 Group B Strep Antigen S. pneumoniae Antigen 12/15/17 12/15/17 12/15/17 04:35 04:35 08:52 WBC RBC Hgb Hct MCV MCH MCHC RDW Plt Count MPV Neut % (Auto) Lymph % (Auto) [place] % (Auto) Eos % (Auto) Baso % (Auto) Neut # (Auto) Lymph # (Auto) [place] # (Auto) Eos # (Auto) Baso # (Auto) WBC Differential Differential Comment Sodium Potassium 3.4 L 3.9 Chloride Carbon Dioxide Anion Gap BUN Creatinine Estimated GFR Random Glucose Lactic Acid Calcium Magnesium 2.2 Total Bilirubin AST ALT Alkaline Phosphatase Total Creatine Kinase CK-MB (CK-2) CK-MB (CK-2) % Troponin I Total Protein Albumin TSH 0.181 L Free T4 Urine Color Urine Clarity Urine pH Ur Specific [place] Urine Protein Urine Glucose (UA) Urine Ketones Urine Occult Blood Urine Nitrate Urine Bilirubin Urine Urobilinogen Ur Leukocyte Esterase Urine RBC Urine WBC Ur Squamous Epith Cells Urine Bacteria Urine Mucus Micro UA Comment Ur Microscopic Review Urine Culture Comments CSF Volume (1) CSF Supernat Color (1) CSF Gross Blood (1) CSF Volume (2) CSF Supernat Color (2) CSF Gross Blood (2) CSF Volume (3) CSF Supernat Color (3) CSF Gross Blood (3) CSF Volume (4) CSF Supernat Color (4) CSF Gross Blood (4) CSF WBC (4) CSF RBC (4) CSF Neutrophils % CSF Lymphocytes % CSF Histiocytes CSF Glucose CSF LDH CSF Total Protein CSF N.mening B/E.coli K1 CSF N.meningitidis A/Y Urine Opiates Screen Ur Barbiturates Screen Ur Amphetamines Screen U Benzodiazepines Scrn Urine Cocaine Screen U Cannabinoids Screen Bacterial Ag Source H.influenzae Type B Ag N. meningitidis C/W 135 Group B Strep Antigen S. pneumoniae Antigen 12/15/17 08:52 WBC RBC Hgb Hct MCV MCH MCHC RDW Plt Count MPV Neut % (Auto) Lymph % (Auto) [place] % (Auto) Eos % (Auto) Baso % (Auto) Neut # (Auto) Lymph # (Auto) [place] # (Auto) Eos # (Auto) Baso # (Auto) WBC Differential Differential Comment Sodium Potassium Chloride Carbon Dioxide Anion Gap BUN Creatinine Estimated GFR Random Glucose Lactic Acid Calcium Magnesium Total Bilirubin AST ALT Alkaline Phosphatase Total Creatine Kinase CK-MB (CK-2) CK-MB (CK-2) % Troponin I Total Protein Albumin TSH Free T4 1.60 H Urine Color Urine Clarity Urine pH Ur Specific [place] Urine Protein Urine Glucose (UA) Urine Ketones Urine Occult Blood Urine Nitrate Urine Bilirubin Urine Urobilinogen Ur Leukocyte Esterase Urine RBC Urine WBC Ur Squamous Epith Cells Urine Bacteria Urine Mucus Micro UA Comment Ur Microscopic Review Urine Culture Comments CSF Volume (1) CSF Supernat Color (1) CSF Gross Blood (1) CSF Volume (2) CSF Supernat Color (2) CSF Gross Blood (2) CSF Volume (3) CSF Supernat Color (3) CSF Gross Blood (3) CSF Volume (4) CSF Supernat Color (4) CSF Gross Blood (4) CSF WBC (4) CSF RBC (4) CSF Neutrophils % CSF Lymphocytes % CSF Histiocytes CSF Glucose CSF LDH CSF Total Protein CSF N.mening B/E.coli K1 CSF N.meningitidis A/Y Urine Opiates Screen Ur Barbiturates Screen Ur Amphetamines Screen U Benzodiazepines Scrn Urine Cocaine Screen U Cannabinoids Screen Bacterial Ag Source H.influenzae Type B Ag N. meningitidis C/W 135 Group B Strep Antigen S. pneumoniae Antigen Microbiology 12/15/17 10:44 Nasal Wash Influenza Types A,B Antigen - Final Negative for FLU A and B antigen Infection due to influenza A or B cannot be ruled out since the antigen present in the sample may be below the detection limit of the test. 12/13/17 08:41 Blood - Peripheral Aerobic Blood Culture - Preliminary No growth in 2 days 12/13/17 08:41 Blood - Peripheral Anaerobic Blood Culture - Preliminary No growth in 2 days 12/13/17 08:23 Blood - Peripheral Aerobic Blood Culture - Preliminary No growth in 2 days 12/13/17 08:23 Blood - Peripheral Anaerobic Blood Culture - Preliminary No growth in 2 days 12/13/17 08:28 Blood - Peripheral Aerobic Blood Culture - Preliminary No growth in 2 days 12/13/17 08:28 Blood - Peripheral Anaerobic Blood Culture - Preliminary No growth in 2 days 12/14/17 16:10 Lumbar Puncture Gram Stain - Final 12/14/17 16:10 Lumbar Puncture CSF Culture - Preliminary No growth in 24 hours - Imaging Impressions Head MRI 12/14/17 13:20 CONCLUSION: 1. No acute intracranial abnormality identified. 2. No abnormal enhancement identified. Chest X-Ray 12/14/17 19:23 CONCLUSION: The lungs are clear. Assessment and Plan - Plan 57-year-old white female admitted for nausea vomiting chest pain. Recurring fevers No clear etiology identified at this time except for possible suspected meningitis, blood cultures are negative, urine is unremarkable, chest x-ray is unremarkable -Continue cefepime and vancomycin and dexamethasone - ID consulted NSVentricular tachycardia Stabilized, status post magnesium infusion. Cardiology following, echocardiogram performed, awaiting report. Initially thought to be due to hyperkalemia however levels appear to be normal. Nausea vomiting -Most likely from suspected infectious process as above, cardiac and GI workup has been unremarkable for obvious causes of persistent nausea/vomiting. Phenergan. Avoid Zofran as much as possible. Relistor for constipation. -THC noted in drug screen. Could be cause of vomiting but not fevers. Hypokalemia Stabilized, continue IV infusion, recheck in a.m. Chest pain -Improved likely secondary to multiple rounds of vomiting and retching. EGD shows mild gastritis. HIDA scan is unremarkable. Chronic pain Continue home pain medications, and if unable to tolerate p.o. meds, resort to IV as needed Scrape -on leg; local wound care lovenox. Discharge Planning: Continue antibiotics, follow-up CSF results
--- NOTE | 2017-12-15 12:34 | IR ---
EXAM DATE: 12/14/2017 12:00 AM EDT AGE/SEX: 57 years / Female INDICATIONS: Patient presents with fever in need of lumbar puncture for possible meningitis. CLINICAL DATA: This is the patient's initial encounter. Patient reports that signs and symptoms have been present for 4 - 6 days and indicates a pain score of 5/10. MEDICAL/SURGICAL HISTORY: . Duff's esophagus, Chiari malformation Hysterectomy. Neck surger y COMPARISON: No prior exams available for comparison. FLUORO TIME (min): 3.2 IMAGE SERIES: 1 ACCESS SITE: L4-5 LUMBAR PUNCTURE TIME: 1610 hours OPENING PRESSURE: 22.5 cm of water CLOSING PRESSURE: not requested FLUID: Total volume of 16.5 cc of clear fluid was removed. Fluid was sent to lab for ordered studies. ; . . PROCEDURE: 1. Fluoroscopic guided lumbar puncture. The risks, benefits and alternatives to the procedure were explained and verbal and written consent w as obtained. The site was prepped in sterile fashion. Full sterile technique was used, including ca p, mask, sterile gloves and gown and a large sterile sheet. Hand hygiene and 2% chlorhexidine and/or betadine/alcohol prep was utilized per protocol for cutaneous antisepsis. The skin and subcutaneous tissues were infiltrated with local anesthetic solution. With fluoroscopic guidance the lumbar thecal sac was punctured at the level above. The fluid describ ed above was removed without difficulty. The patient tolerated the procedure well and there were no complications. CONCLUSION: 1. Uncomplicated fluoroscopically guided lumbar puncture. Electronically signed by: Migue Gomez MD 12/15/2017 12:33 PM EDT
--- NOTE | 2017-12-15 13:02 | ECHRPT ---
Indication: chest pain CONCLUSIONS The left ventricular systolic function is normal with an estimated ejection fraction in the range of 55-60%. Normal left ventricular wall size and thickness. No regional wall motion abnormalities. Grade 1 diastolic dysfunction. No significant valvular heart disease. Estimated RSVP 34 mmHg. IVC is normal size with a greater than 50% decrease in inspiration. No prior echo for comparison. BP: / HR: Rhythm: MEASUREMENTS (Male / Female) Normal Values Technical Quality:fair 2D ECHO LV Diastolic Diameter PLAX 4.4 cm 4.2 - 5.9 / 3.9 - 5.3 cm LV Systolic Diameter PLAX 3.4 cm IVS Diastolic Thickness 1.1 cm 0.6 - 1.0 / 0.6 - 0.9 cm LVPW Diastolic Thickness 1.1 cm 0.6 - 1.0 / 0.6 - 0.9 cm LV Relative Wall Thickness 0.5 RV Internal Dim ED PLAX 2.9 cm LVOT Diameter 1.7 cm Aortic Root Diameter 3.1 cm LA Systolic Diameter LX 3.5 cm 3.0 - 4.0 / 2.7 - 3.8 cm LV Ejection Fraction MOD 4C 65.8 % LV Ejection Fraction 4C AL 66.7 % M-MODE Aortic Root Diameter MM 3.6 cm LA Systolic Diameter MM 4.4 cm LA Ao Ratio MM 1.2 AV Cusp Separation MM 2.0 cm DOPPLER AV Peak Velocity 133.0 cm/s AV Peak Gradient 7.1 mmHg AI Peak Velocity 157.0 cm/s AI Peak Gradient 9.9 mmHg AI Pressure Half Time 160.0 ms Mitral E Point Velocity 61.2 cm/s Mitral A Point Velocity 79.5 cm/s Mitral E to A Ratio 0.8 LV E' Lateral Velocity 8.1 cm/s Mitral E to LV E' Lateral Ratio 7.6 LV E' Septal Velocity 7.5 cm/s Mitral E to LV E' Septal Ratio 8.1 TR Peak Velocity 244.0 cm/s TR Peak Gradient 23.8 mmHg Right Atrial Pressure 10.0 mmHg Pulmonary Artery Systolic Pressu 33.8 mmHg Right Ventricular Systolic Press 33.8 mmHg PV Peak Velocity 111.0 cm/s PV Peak Gradient 4.9 mmHg FINDINGS LEFT VENTRICLE Normal left ventricular size. Wall thickness is normal. The left ventricular systolic function is normal with an estimated ejection fraction in the range of 55-60%. Grade 1 diastolic dysfunction. RIGHT VENTRICLE Normal right ventricular size and systolic function. LEFT ATRIUM The left atrial size is normal. RIGHT ATRIUM The right atrial size is normal. ATRIAL SEPTUM Normal atrial septal thickness without atrial level shunting by limited color doppler interrogation. AORTA The aortic root and proximal ascending aorta are normal in size on limited imaging. MITRAL VALVE Structurally normal mitral valve. No mitral valve stenosis or regurgitation. AORTIC VALVE Trileaflet aortic valve. No aortic valve stenosis or regurgitation. TRICUSPID VALVE There is trace tricuspid valve regurgitation. PULMONARY VALVE No pulmonary valve regurgitation or stenosis. VESSELS The inferior vena cava is normal in size. PERICARDIUM No pericardial effusion. Rosaura Cazares MD (Electronically Signed) Final Date:15 December 2017 13:01
[2017-12-15] MEDS: Enoxaparin Inj 30 MG/0.3 ML Syringe SQ SCH (13:57)
--- NOTE | 2017-12-15 15:22 | P.PNCA ---
Subjective Interval history: Patient denies any chest pain, pressure, palpitations, dizziness, edema or shortness of breath. Patient still complains of nausea but is currently able to keep a little bit of fluids down. Medications and Allergies Allergies Allergy/AdvReac Type Severity Reaction Status Date / Time latex Allergy Severe Swelling Verified 12/12/17 10:31 Home Medications Medication Instructions Recorded Confirmed Type estradiol 2 mg PO DAILY 12/12/17 12/12/17 History morphine 15 mg PO Q4-6H PRN 12/12/17 12/12/17 History oxycodone 10 mg PO Q4-6H PRN 12/12/17 12/12/17 History pantoprazole [Protonix] 20 mg PO DAILY 12/12/17 12/12/17 History Active Medications: Active Medications Acetaminophen (Tylenol) 650 mg PO Q4H PRN PRN Reason: FEVER Last Admin: 12/14/17 23:23 Dose: 650 mg Amlodipine Besylate (Norvasc) 5 mg PO DAILY [facility] Last Admin: 12/15/17 09:33 Dose: Not Given Bisacodyl (Dulcolax Supp) 10 mg RECTAL DAILY [facility] Last Admin: 12/15/17 09:32 Dose: 10 mg Collagenase (Santyl Oint) 1 applicatio TOPICAL DAILY [facility] Last Admin: 12/15/17 09:29 Dose: 1 applicatio Dexamethasone Sodium Phosphate (Decadron Inj) 4 mg IV.PUSH Q12HR [facility] Last Admin: 12/15/17 09:33 Dose: 4 mg Diazepam (Valium) 5 mg PO 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 [facility] Stop: 12/16/17 14:14 Diphenhydramine HCl (Benadryl) 50 mg PO 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 [facility] Stop: 12/16/17 14:14 Diphenhydramine HCl (Benadryl Inj) 25 mg IV.PUSH 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 [facility] Stop: 12/16/17 14:59 Enalaprilat (Vasotec Inj) 1.25 mg IV.PUSH Q8H PRN PRN Reason: HYPERTENSION Last Admin: 12/14/17 05:25 Dose: 1.25 mg Enoxaparin Sodium (Lovenox Inj) 30 mg SQ DAILY [facility] Last Admin: 12/15/17 13:57 Dose: 30 mg Fentanyl Citrate (Fentanyl Inj) 50 mcg IV.PUSH 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 [facility] Stop: 12/16/17 14:14 Hydralazine HCl (Apresoline Inj) 10 mg IV.PUSH Q8H PRN PRN Reason: SBP > 150 or DBP > 90 Last Admin: 12/14/17 14:27 Dose: 10 mg Potassium Chloride/Sodium Chloride (Potassium Chlor 20 Meq/Nacl 0.45% Inj) 1, 000 mls @ 42 mls/hr IV.CONT .[id number] [facility] Last Admin: 12/14/17 14:17 Dose: 42 mls/hr Cefepime HCl 2,000 mg/ Sodium (Chloride) 100 mls @ 200 mls/hr IV.SIG Q8H [facility] Last Admin: 12/15/17 13:58 Dose: 200 mls/hr Vancomycin HCl 1,500 mg/ (Sodium Chloride) 515 mls @ 250 mls/hr IV.SIG Q12H [facility] Last Infusion: 12/15/17 08:30 Dose: Infused Esmolol HCl (Brevibloc 2,500 Mg/Ns 250 Ml Premix) 2,500 mg in 250 mls @ 26.82 mls/hr IV.CONT TITRATE PRN; Protocol PRN Reason: Per Protocol Last Admin: 12/15/17 13:57 Dose: 100 mcg/kg/min, 53.64 mls/hr Magnesium Sulfate 4 gm/ Sodium (Chloride) 100 mls @ 50 mls/hr IV.SIG UNSCH PRN PRN Reason: For Magnesium 0.9 - 1.1 mg/dL Magnesium Sulfate 2 gm/ Sodium (Chloride) 100 mls @ 50 mls/hr IV.SIG UNSCH PRN PRN Reason: For Magnesium 1.2 - 1.6 mg/dL Potassium Chloride (Kcl 40 Meq Premix Inj) 40 meq in 100 mls @ 25 mls/hr IV.SIG Q2H PRN PRN Reason: For Potassium 2.8 - 3.2 mEq/L Potassium Chloride (Kcl 20 Meq Premix Inj) 20 meq in 100 mls @ 50 mls/hr IV.SIG Q2H PRN PRN Reason: For Potassium 3.3 - 3.5 mEq/L Potassium Chloride (Kcl 40 Meq Premix Inj) 40 meq in 100 mls @ 25 mls/hr IV.SIG UNSCH PRN PRN Reason: For Potassium 3.3 - 3.5 mEq/L Potassium Chloride (Kcl 20 Meq Premix Inj) 20 meq in 100 mls @ 50 mls/hr IV.SIG Q2H PRN PRN Reason: For Potassium 2.8 - 3.2 mEq/L Potassium Phosphate 30 mmol/ (Sodium Chloride) 260 mls @ 42 mls/hr IV.SIG UNSCH PRN PRN Reason: SEE LABEL COMMENTS Sodium Phosphate 30 mmol/ (Sodium Chloride) 260 mls @ 42 mls/hr IV.SIG UNSCH PRN PRN Reason: For Phosphorus < 2.5 mg/dL Lorazepam (Ativan Inj) 0.5 mg IV.PUSH Q6H PRN PRN Reason: ANXIETY Last Admin: 12/15/17 12:46 Dose: 0.5 mg Magnesium Oxide (Mag-Ox) 800 mg PO UNSCH PRN PRN Reason: For Magnesium 1.2 - 1.6 mg/dL Midazolam HCl (Versed Inj) 1 mg IV.PUSH [employer]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 [facility] Stop: 12/16/17 14:14 Miscellaneous Information ([facility] [place] [place] [facility] Ordered Lab Info) 1 each OTHER ONCE ONE Stop: 12/16/17 03:46 Morphine Sulfate (Msir) 15 mg PO Q4H PRN PRN Reason: Pain 1-10 Morphine Sulfate (Morphine Inj) 2 mg IV.PUSH Q4H PRN PRN Reason: SEE LABEL COMMENTS Last Admin: 12/15/17 10:09 Dose: 2 mg Ondansetron HCl (Zofran Inj) 4 mg IV.PUSH Q6H PRN PRN Reason: NAUSEA Pantoprazole Sodium (Protonix Inj) 40 mg IV.PUSH Q12H [facility] Last Admin: 12/15/17 06:16 Dose: 40 mg Pharmacy Profile Note (Vancomycin Consult Pharmacy) 1 each OTHER UNSCH PRN PRN Reason: Pharmacy to dose Potassium Bicarb/Potassium Chloride (K-Lyte Cl Eff) 50 meq PO UNSCH PRN PRN Reason: For Potassium 3.3 - 3.5 mEq/L Last Admin: 12/15/17 06:15 Dose: 50 meq Potassium Phosphate (K-Phos Original) 2,000 mg PO UNSCH PRN PRN Reason: SEE LABEL COMMENTS Potassium Phosphate (K-Phos Original) 2,000 mg PO Q4H PRN PRN Reason: Phosphorus Less Than 2.5 mg/dL Promethazine HCl (Phenergan Inj) 12.5 mg IM Q6H PRN PRN Reason: vomiting refractory to po Last Admin: 12/15/17 10:04 Dose: 12.5 mg Sodium Chloride (Ns Flush) 2 ml IV.FLUSH BID [facility] Last Admin: 12/15/17 09:29 Dose: 2 ml Sodium Chloride (Ns Flush) 2 ml IV.FLUSH PRN PRN PRN Reason: FLUSH AFTER USING IV ACCESS Physical Exam Vital signs: Vital Signs 12/14/17 16:30 12/14/17 16:32 12/14/17 17:00 Temperature 101.6 F H Pulse Rate 106 H 108 H 109 H Respiratory Rate 18 Blood Pressure 148/77 H Pulse Oximetry 100 12/14/17 17:32 12/14/17 19:00 12/14/17 19:23 Temperature 99.4 F Pulse Rate 108 H 108 H Respiratory Rate 20 Blood Pressure 134/77 147/89 H Pulse Oximetry 97 12/14/17 23:00 12/14/17 23:36 12/14/17 23:50 Temperature 100.2 F H Pulse Rate 87 82 Respiratory Rate 22 20 Blood Pressure 159/74 H Pulse Oximetry 97 12/15/17 03:00 12/15/17 07:00 12/15/17 11:00 Temperature 99.2 F 97.6 F 97.8 F Pulse Rate 70 70 71 Respiratory Rate 20 18 20 Blood Pressure 160/93 H 173/94 H 144/78 H Pulse Oximetry 97 96 98 Intake & Output 12/14/17 12/15/17 12/15/17 18:59 06:59 18:59 Intake Total 1340 / 1340 1745 / 1745 1115 / 1115 Output Total 900 / 900 Balance 1340 / 1340 845 / 845 1115 / 1115 Weight 88 kg Intake: IV 1100 / 1100 1265 / 1265 1115 / 1115 Brevibloc 2,500 mg/NS 250 mL 250 / 250 500 / 500 Premix 2,500 mg In 250 ml @ 50 MCG/KG/MIN 26.82 mls/hr IV.CONT TITRATE PRN Rx#:[id number] Potassium Chlor 20 mEq/NACL 0. 1000 / 1000 45% Inj 1,000 ML @ 42 mls/hr IV .CONT .[id number] [facility] Rx#:[id number] Maxipime Inj 2,000 MG In NS Inj 100 / 100 100 / 100 100 / 100 100 ML @ 200 mls/hr IV.SIG Q8H [facility] Rx#:[id number] Magnesium Sulfate 1 gm/D5W 100 100 / 100 ml Premix 100 ML @ 0 mls/hr IV. SIG .STK-MED ONE Rx#:[id number] Magnesium Sulfate Inj 2 GM In 100 / 100 NS Inj 96 ML @ 50 mls/hr IV.SIG ONCE ONE Rx#:[id number] KCl 20 mEq Premix Inj 20 meq In 200 / 200 100 ml @ 50 mls/hr IV.SIG Q2H [facility] Rx#:[id number] Vancomycin Inj 1,500 MG In NS 515 / 515 515 / 515 Inj 500 ML @ 250 mls/hr IV.SIG Q12H [facility] Rx#:[id number] Oral 240 / 240 480 / 480 Output: Urine 900 / 900 Other: # Emeses 8 - Constitutional no acute distress - Routine HEENT Exam Head: Present: normocephalic Eye: Present: PERRL ENT: Present: mucous membranes moist - Routine Neck Exam Present: full ROM - Routine Respiratory Exam Present: crackles Comments: Crackles in lower lobes bilaterally - Routine Cardiovascular Exam Present: S1, S2. Absent: murmur, gallop, rubs - Routine Abdominal Exam Present: normoactive bowel sounds - Routine Extremities Exam Present: full ROM, pulses intact, normal capillary refill. Absent: cyanosis, clubbing, edema - Routine Skin Exam Present: intact - Routine Neurological Exam Present: oriented X3 - Detailed Neurological Exam: Coma Scale Eye Opening: Spontaneous Verbal Response: Oriented Motor Response: Obey commands [place] Coma Scale Total: 15 - Routine Psychiatric Exam Present: normal affect Results 12/15/17 04:35 12/15/17 08:52 Cardiac Enzymes 12/14/17 12/14/17 12/14/17 Range/Units 18:30 18:30 18:30 AST 39 H (15-37) U/L CK-MB (CK-2) 3.7 H (0.5-3.6) ng/mL Troponin I 0.89 H* D Cancelled (0.02-0.05) ng/mL 12/15/17 Range/Units 00:07 AST (15-37) U/L CK-MB (CK-2) (0.5-3.6) ng/mL Troponin I 0.84 H* (0.02-0.05) ng/mL CBC 12/14/17 12/14/17 12/15/17 Range/Units 05:57 18:30 04:35 WBC 12.1 H 9.8 8.6 (4.0-11.0) th/mm3 RBC 4.58 4.79 4.41 (4.00-5.30) mil/mm3 Hgb 13.6 14.3 13.1 (11.6-15.3) gm/dL Hct 39.6 42.1 39.0 (35.0-46.0) % Plt Count 354 257 333 (150-450) th/mm3 Neut # (Auto) 9.6 H 8.7 H 5.9 (1.8-7.7) th/mm3 Lymph # (Auto) 1.4 0.7 L 1.9 (1.0-4.8) th/mm3 [place] # (Auto) 1.1 H 0.3 0.8 (0.0-0.9) th/mm3 Eos # (Auto) 0.0 0.0 0.0 (0.0-0.4) th/mm3 Baso # (Auto) 0.0 0.0 0.0 (0.0-0.2) th/mm3 Comprehensive Metabolic Panel 12/14/17 12/14/17 12/14/17 Range/Units 05:57 18:30 18:30 Sodium 136 135 L (136-145) meq/L Potassium 3.0 L 3.6 Cancelled (3.5-5.1) meq/L Chloride 103 103 (98-107) meq/L Carbon Dioxide 22.6 20.4 L (21.0-32.0) meq/L BUN 8 11 (7-18) mg/dL Creatinine 0.62 0.60 (0.50-1.00) mg/dL Calcium 8.7 8.6 (8.5-10.1) mg/dL AST 39 H (15-37) U/L ALT 26 (10-53) U/L Alkaline Phosphatase 72 (45-117) U/L Total Protein 7.3 (6.4-8.2) g/dL Albumin 3.6 (3.4-5.0) g/dL 12/15/17 12/15/17 Range/Units 04:35 08:52 Sodium (136-145) meq/L Potassium 3.4 L 3.9 (3.5-5.1) meq/L Chloride (98-107) meq/L Carbon Dioxide (21.0-32.0) meq/L BUN (7-18) mg/dL Creatinine (0.50-1.00) mg/dL Calcium (8.5-10.1) mg/dL AST (15-37) U/L ALT (10-53) U/L Alkaline Phosphatase (45-117) U/L Total Protein (6.4-8.2) g/dL Albumin (3.4-5.0) g/dL Intake and Output 12/15/17 12/15/17 12/15/17 06:59 14:59 22:59 Intake Total 1030 / 1030 1115 / 1115 Output Total 900 / 900 Balance 130 / 130 1115 / 1115 Intake: IV 550 / 550 1115 / 1115 Brevibloc 2,500 mg/NS 250 mL 250 / 250 500 / 500 Premix 2,500 mg In 250 ml @ 50 MCG/KG/MIN 26.82 mls/hr IV.CONT TITRATE PRN Rx#:[id number] Maxipime Inj 2,000 MG In NS Inj 100 / 100 100 / 100 100 ML @ 200 mls/hr IV.SIG Q8H [facility] Rx#:[id number] Magnesium Sulfate Inj 2 GM In 100 / 100 NS Inj 96 ML @ 50 mls/hr IV.SIG ONCE ONE Rx#:[id number] KCl 20 mEq Premix Inj 20 meq In 100 / 100 100 ml @ 50 mls/hr IV.SIG Q2H [facility] Rx#:[id number] Vancomycin Inj 1,500 MG In NS 515 / 515 Inj 500 ML @ 250 mls/hr IV.SIG Q12H [facility] Rx#:[id number] Oral 480 / 480 Output: Urine 900 / 900 Other: Weight 88 kg - Imaging and Cardiology Imaging: Impressions Bile Acid Absorption NM 12/14/17 00:00 CONCLUSION: 1. Negative examination. No evidence for cystic duct or biliary ductal obstruction. Lumbar Puncture Fluoroscopy 12/14/17 00:00 CONCLUSION: 1. Uncomplicated fluoroscopically guided lumbar puncture. Head MRI 12/14/17 13:20 CONCLUSION: 1. No acute intracranial abnormality identified. 2. No abnormal enhancement identified. Chest X-Ray 12/14/17 19:23 CONCLUSION: The lungs are clear. Assessment and Plan - Assessment (1) Nausea & vomiting Code(s): R11.2 - Nausea with vomiting, unspecified Status: Acute (2) Chest pain Code(s): R07.9 - Chest pain, unspecified Status: Acute (3) Hypertension Code(s): I10 - Essential (primary) hypertension Status: Acute (4) Fever Code(s): R50.9 - Fever, unspecified Status: Acute - Plan We will continue aggressive electrolyte replacement, keep potassium 4.0 or greater. Patient had cardiac catheterization, no evidence of acute coronary stenosis. Echo shows, preserved left ventricular function 55-60%. We will continue esmolol drip until patient is able to take p.o.; at that time we will switch to metoprolol. GI evaluation in progress. Infectious disease evaluation in progress. Continue with current cardiac treatment plan and adjust as needed. We will continue to follow patient during her hospitalization. Dr. Vaughan will follow next week. The patient was seen and evaluated by Dr. Clark who participated in care, management and decision-making. - Attending Attestation Patient seen and examined. I reviewed and agree with the evaluation and plan as presented. No recurrent VT. Replace K. Continue esmolol until able to switch to take metoprolol PO. Continue monitoring.
--- NOTE | 2017-12-15 16:13 | ECG ---
Date Performed: 12/14/2017 Time Performed: 18:03:20 PTAGE: 57 years EKG: Sinus tachycardia. Anterior T wave changes are nonspecific Borderline ECG PREVIOUS TRACING :12/12/2017 @17.06.22 Compared to previous tracing, patient has developed mini mal Nonspecific anterior T-wave flattening and the sinus tachycardia is new. Clinical correlation is recommended DOCTOR: Sharri Baez Interpretating Date/Time 12/15/2017 16:13:05
--- NOTE | 2017-12-15 16:15 | ECG ---
Date Performed: 12/15/2017 Time Performed: 04:53:28 PTAGE: 57 years EKG: Sinus rhythm with PAC(s) Borderline ECG PREVIOUS TRACING : 12/14/2017 18.03 Compared to previous tracing, Sinus tachycardia has resolve d. The minimal Nonspecific anterior T-wave changes have improved. DOCTOR: Sharri Baez Interpretating Date/Time 12/15/2017 16:14:00
--- NOTE | 2017-12-15 19:11 | P.PNID ---
Subjective Remarks: Patient is a 57-year-old female, presented to the hospital with 2-3 day history of nausea and vomiting. She is also had decrease appetite due to the vomiting. On the day of admission she had chest pain so she was brought into the hospital for further evaluation and treatment. Cardiac workup currently did not reveal any OK. Patient had cardiac cath and it was okay. GI had evaluated the patient, and upper endoscopy showed evidence of some esophagitis and gastritis. Patient still having nausea and vomiting. She denies any significant abdominal pain. She has not had any fever chills or sweats. She has not had any prior problem with nausea and vomiting. Patient was found to have a left leg wound, and he had some green drainage. Infectious disease consultation has been requested to evaluate the left leg wound. Patient apparently had a fall about a week ago and sustained some abrasions on her left leg. She has been doing her own wound care, she keeps the wound open to air during the day, and at night she puts Neosporin and she covers the wound. She has not really noted any significant pain or redness in her left leg or left thigh. Here in the hospital she is afebrile. Her WBC is normal. Notes reviewed Had fevers again yesterday highest 101.6 WBC went up to 12K Temps better today Less vomiting No abdominal pain No BM x 5 days Voiding ok No resp complaints Had NSVT last night On esmolol drip No KENNEY LP done - CSF ok Brain MRI negative Repeat CXR clear Ua ok No central line Started on Vanco and Cefepime yesterday BC negative so far Influenza neg Antibiotics: vancomycin Cefepime Lines: PIV Past Medical History: Barretts esophagus Chiari malformation Hx of hysterectomy Hx of neck surgery Hx of rotator cuff surgery Allergies/Adverse Reactions: Allergies latex Allergy (Severe, Verified 12/12/17 10:31) Swelling Objective Vital Signs 12/14/17 19:23 12/14/17 23:00 12/14/17 23:36 Temperature 99.4 F 100.2 F H Pulse Rate 108 H 87 Respiratory Rate 20 22 20 Blood Pressure 147/89 H 159/74 H Pulse Oximetry 97 97 12/14/17 23:50 12/15/17 03:00 12/15/17 07:00 Temperature 99.2 F 97.6 F Pulse Rate 82 70 70 Respiratory Rate 20 18 Blood Pressure 160/93 H 173/94 H Pulse Oximetry 97 96 12/15/17 11:00 12/15/17 15:00 Temperature 97.8 F 99.3 F Pulse Rate 71 69 Respiratory Rate 20 20 Blood Pressure 144/78 H 158/89 H Pulse Oximetry 98 96 Intake & Output 12/15/17 12/15/17 12/16/17 06:59 18:59 06:59 Intake Total 1745 / 1745 2889 / 2889 Output Total 900 / 900 2099 / 2099 Balance 845 / 845 789 / 789 Weight 88 kg Intake: IV 1265 / 1265 1365 / 1365 Brevibloc 2,500 mg/NS 250 mL 250 / 250 750 / 750 Premix 2,500 mg In 250 ml @ 50 MCG/KG/MIN 26.82 mls/hr IV.CONT TITRATE PRN Rx#:[id number] Maxipime Inj 2,000 MG In NS Inj 100 / 100 100 / 100 100 ML @ 200 mls/hr IV.SIG Q8H [facility] Rx#:[id number] Magnesium Sulfate 1 gm/D5W 100 100 / 100 ml Premix 100 ML @ 0 mls/hr IV. SIG .STK-MED ONE Rx#:[id number] Magnesium Sulfate Inj 2 GM In 100 / 100 NS Inj 96 ML @ 50 mls/hr IV.SIG ONCE ONE Rx#:[id number] KCl 20 mEq Premix Inj 20 meq In 200 / 200 100 ml @ 50 mls/hr IV.SIG Q2H [facility] Rx#:[id number] Vancomycin Inj 1,500 MG In NS 515 / 515 515 / 515 Inj 500 ML @ 250 mls/hr IV.SIG Q12H [facility] Rx#:[id number] Oral 480 / 480 1440 / 1440 Tube Feeding 54 / 54 Water Bolus Amount 30 / 30 Output: Urine 900 / 900 2099 / 2099 Other: # Bowel Movements 0 12/14/17 16:10 Fluid - Other Acid Fast Bacilli Smear - Final No acid fast bacilli seen 12/14/17 16:10 Fluid - Other Mycobacterial Culture - Pending 12/15/17 10:44 Nasal Wash Influenza Types A,B Antigen - Final Negative for FLU A and B antigen Infection due to influenza A or B cannot be ruled out since the antigen present in the sample may be below the detection limit of the test. 12/13/17 08:41 Blood - Peripheral Aerobic Blood Culture - Preliminary No growth in 2 days 12/13/17 08:41 Blood - Peripheral Anaerobic Blood Culture - Preliminary No growth in 2 days 12/13/17 08:23 Blood - Peripheral Aerobic Blood Culture - Preliminary No growth in 2 days 12/13/17 08:23 Blood - Peripheral Anaerobic Blood Culture - Preliminary No growth in 2 days 12/13/17 08:28 Blood - Peripheral Aerobic Blood Culture - Preliminary No growth in 2 days 12/13/17 08:28 Blood - Peripheral Anaerobic Blood Culture - Preliminary No growth in 2 days 12/14/17 16:10 Lumbar Puncture Gram Stain - Final 12/14/17 16:10 Lumbar Puncture CSF Culture - Preliminary No growth in 24 hours Lab - Hematology Results 12/14/17 12/14/17 12/15/17 05:57 18:30 04:35 WBC 12.1 H 9.8 8.6 RBC 4.58 4.79 4.41 Hgb 13.6 14.3 13.1 Hct 39.6 42.1 39.0 MCV 86.4 87.8 88.4 MCH 29.8 29.9 29.6 MCHC 34.5 34.1 33.5 RDW 13.4 13.5 13.2 Plt Count 354 257 333 MPV 8.2 8.7 7.7 Neut % (Auto) 79.3 H 89.6 H 68.9 Lymph % (Auto) 11.8 7.5 L 22.0 [place] % (Auto) 8.8 H 2.6 8.8 H Eos % (Auto) 0.0 0.0 0.0 Baso % (Auto) 0.1 0.3 0.3 Neut # (Auto) 9.6 H 8.7 H 5.9 Lymph # (Auto) 1.4 0.7 L 1.9 [place] # (Auto) 1.1 H 0.3 0.8 Eos # (Auto) 0.0 0.0 0.0 Baso # (Auto) 0.0 0.0 0.0 WBC Differential . . . Differential Comment Auto diff final Auto diff final Auto diff final Lab - Chemistry Results 12/14/17 12/14/17 12/14/17 05:57 18:30 18:30 Sodium 136 135 L Potassium 3.0 L 3.6 Chloride 103 103 Carbon Dioxide 22.6 20.4 L Anion Gap 10 12 BUN 8 11 Creatinine 0.62 0.60 Estimated GFR Greater than 89 Greater than 89 Random Glucose 106 102 Lactic Acid Calcium 8.7 8.6 Magnesium 2.0 D 2.1 Total Bilirubin 0.6 AST 39 H ALT 26 Alkaline Phosphatase 72 Total Creatine Kinase 317 H CK-MB (CK-2) 3.7 H CK-MB (CK-2) % 1.2 Troponin I 0.89 H* D Total Protein 7.3 Albumin 3.6 TSH Free T4 12/14/17 12/14/17 12/14/17 18:30 18:30 18:30 Sodium Potassium Cancelled Chloride Carbon Dioxide Anion Gap BUN Creatinine Estimated GFR Random Glucose Lactic Acid 0.6 Calcium Magnesium Cancelled Total Bilirubin AST ALT Alkaline Phosphatase Total Creatine Kinase CK-MB (CK-2) CK-MB (CK-2) % Troponin I Cancelled Total Protein Albumin TSH Free T4 12/15/17 12/15/17 12/15/17 00:07 04:35 04:35 Sodium Potassium 3.4 L Chloride Carbon Dioxide Anion Gap BUN Creatinine Estimated GFR Random Glucose Lactic Acid Calcium Magnesium 2.2 Total Bilirubin AST ALT Alkaline Phosphatase Total Creatine Kinase CK-MB (CK-2) CK-MB (CK-2) % Troponin I 0.84 H* Total Protein Albumin TSH 0.181 L Free T4 12/15/17 12/15/17 08:52 08:52 Sodium Potassium 3.9 Chloride Carbon Dioxide Anion Gap BUN Creatinine Estimated GFR Random Glucose Lactic Acid Calcium Magnesium Total Bilirubin AST ALT Alkaline Phosphatase Total Creatine Kinase CK-MB (CK-2) CK-MB (CK-2) % Troponin I Total Protein Albumin TSH Free T4 1.60 H Imaging: ITS Impressions Pulmonary Perfusion Imaging 12/12/17 20:24 CONCLUSION: 1. Low probability pulmonary embolism. Bile Acid Absorption NM 12/14/17 00:00 CONCLUSION: 1. Negative examination. No evidence for cystic duct or biliary ductal obstruction. Lumbar Puncture Fluoroscopy 12/14/17 00:00 CONCLUSION: 1. Uncomplicated fluoroscopically guided lumbar puncture. Head MRI 12/14/17 13:20 CONCLUSION: 1. No acute intracranial abnormality identified. 2. No abnormal enhancement identified. Chest X-Ray 12/14/17 19:23 CONCLUSION: The lungs are clear. Physical Exam: GENERAL: awake and alert, not in respiratory distress. SKIN: Cool and dry. No generalized rash, no ecchymoses and no evidence of embolic lesions. HEAD: Atraumatic. Normocephalic. No temporal wasting, or tenderness. EYES: [employer] conjunctiva. No petechia or hemorrhage. Pupils equal, round and reactive to light. Extraocular movements full and intact. No scleral icterus. No injection or drainage. EARS, NOSE AND THROAT: Nose without bleeding or purulent nasal discharge. No sinus tenderness. Mucous membranes pink and moist. No oral lesions noted. No exudate. No oral thrush. NECK: Trachea midline. Supple and not tender, no meningeal signs CARDIOVASCULAR: Regular rate and rhythm. No murmurs, rubs or gallops heard RESPIRATORY: Clear to auscultation. Breath sounds equal bilaterally. No rales , wheezing or rhonchi ABDOMEN: Soft, non-tender, nondistended. Bowel sounds present and normoactive. No guarding. No rebound. No organomegaly. EXTREMITIES: No clubbing, cyanosis, or edema. No joint effusion, has good ROM. No calf tenderness. LLE - there is a superficial wound on upper anterior leg with pink base, no significant periwound erythema, no purulence at wound, no lymphangitis, no odor. Small abrasion 2 toes on L foot no evidence of infection NEUROLOGICAL: Grossly non-focal PSYCHIATRIC: Normal affect, calm and cooperative. LINE: No evidence of infection Assessment and Plan - Plan Impression Superficial wound L leg, looks like an abrasion, no surrounding cellulitis Nausea and vomiting - has esophagitis and gastritis on EGD Normal cardiac cath NSVtach felt to be likely due to low K Fevers, no obvious source for bacterial infection, ?viral causing her GI symptoms Recommendation Wound care On vanco and Cefepime If C/S negative, deescalate Abx Follow C/S Monitor temps Explained plan to patient and family Dr Cobb covering this weekend
[2017-12-16] MEDS: Morphine Sulfate Inj 2 MG/ML Vial IV.PUSH PRN ×6 (01:22→22:28)
[2017-12-16] MEDS ORDERED: Pharmacy Ordered Lab Info OTHER ONE (03:45)
[2017-12-16] MEDS: Esmolol 2,500 mg/250 mL Premix 2,500 MG/250 ML BAG IV.CONT PRN ×2 (04:17→19:01)
[2017-12-16] MEDS: hydrALAZINE HCl Inj 20 MG/ML Vial IV.PUSH PRN ×2 (04:46→21:09)
[2017-12-16 05:21] LABS: Anion Gap 11 meq/L (5-15); Blood Urea Nitrogen 10 mg/dL (7-18); Calcium 8.3 mg/dL (8.5-10.1); Carbon Dioxide 22.5 meq/L (21.0-32.0); Chloride 102 meq/L (98-107); Glomerular Filtration Rate Greater Than 89 mL/min (>89); Glucose,Random 96 mg/dL (74-106); Potassium 3.4 meq/L (3.5-5.1); Sodium 135 meq/L (136-145)
[2017-12-16 05:23] LABS: Vancomycin,Trough 14.1 mcg/mL (5.0-10.0)
[2017-12-16] MEDS: Vancomycin Inj 1,500 MG in Sodium Chlor 0.9% Inj 500 ML IV.SIG SCH (05:35)
[2017-12-16] MEDS: Pantoprazole Inj 40 MG Vial IV.PUSH SCH ×2 (06:00→17:30)
[2017-12-16] MEDS: Enoxaparin Inj 30 MG/0.3 ML Syringe SQ SCH (08:34)
[2017-12-16] MEDS: amLODIPine 5 MG Tablet PO SCH (08:35)
[2017-12-16] MEDS: Collagenase Oint 30 GM Tube TOPICAL SCH (08:35)
[2017-12-16] MEDS: Bisacodyl 10 MG Supp RECTAL SCH (10:14)
--- NOTE | 2017-12-16 10:56 | P.PNGI ---
Subjective Interval history: Still with nausea/vomitting, poor appetite Physical Exam Vital signs: Vital Signs 12/15/17 11:00 12/15/17 15:00 12/15/17 19:00 Temperature 97.8 F 99.3 F 98.4 F Pulse Rate 71 69 65 Respiratory Rate 20 20 16 Blood Pressure 144/78 H 158/89 H 146/91 H Pulse Oximetry 98 96 97 12/15/17 23:00 12/16/17 03:00 12/16/17 07:00 Temperature 97.9 F 99.3 F 98.6 F Pulse Rate 68 64 72 Respiratory Rate 16 14 16 Blood Pressure 144/87 H 164/96 H 158/90 H Pulse Oximetry 96 97 97 12/16/17 09:00 Temperature Pulse Rate Respiratory Rate 0 L Blood Pressure Pulse Oximetry Intake & Output 12/15/17 12/16/17 12/16/17 18:59 06:59 18:59 Intake Total 2989 / 2989 1495 / 1495 100 / 100 Output Total 2100 / 2100 2150 / 2150 Balance 889 / 889 -655 / -655 100 / 100 Weight 91.3 kg Intake: IV 1465 / 1465 1015 / 1015 100 / 100 Brevibloc 2,500 mg/NS 250 mL 750 / 750 500 / 500 Premix 2,500 mg In 250 ml @ 50 MCG/KG/MIN 26.82 mls/hr IV.CONT TITRATE PRN Rx#:[id number] Maxipime Inj 2,000 MG In NS Inj 200 / 200 100 / 100 100 ML @ 200 mls/hr IV.SIG Q8H [facility] Rx#:[id number] Vancomycin Inj 1,500 MG In NS 515 / 515 515 / 515 Inj 500 ML @ 250 mls/hr IV.SIG Q12H [facility] Rx#:[id number] Oral 1440 / 1440 480 / 480 Tube Feeding 54 / 54 Water Bolus Amount 30 / 30 Output: Urine 2100 / 2100 1850 / 1850 Emesis 300 / 300 Other: # Bowel Movements 0 0 - Constitutional no acute distress - Routine HEENT Exam Head: Present: normocephalic Eye: Present: EOMI - Routine Neck Exam Present: supple - Routine Respiratory Exam Present: CTA bilaterally - Routine Cardiovascular Exam Present: RRR - Routine Abdominal Exam Present: soft, normoactive bowel sounds - Routine Neurological Exam Present: alert Results - Labs CBC & Chem 7: 12/15/17 04:35 12/16/17 04:25 Laboratory Results - last 24 hr 12/14/17 12/15/17 12/16/17 16:10 08:52 04:25 Sodium 135 L Potassium 3.4 L Chloride 102 Carbon Dioxide 22.5 Anion Gap 11 BUN 10 Creatinine 0.56 Estimated GFR Greater than 89 Random Glucose 96 Calcium 8.3 L Free T4 1.60 H CSF Herpes I DNA (PCR) Negative CSF Herpes II DNA (PCR) Negative Vancomycin Trough 14.1 H Microbiology 12/14/17 16:10 Lumbar Puncture Gram Stain - Final 12/14/17 16:10 Lumbar Puncture CSF Culture - Preliminary No growth in 48 hours 12/14/17 16:10 Fluid - Other Acid Fast Bacilli Smear - Final No acid fast bacilli seen 12/15/17 10:44 Nasal Wash Influenza Types A,B Antigen - Final Negative for FLU A and B antigen Infection due to influenza A or B cannot be ruled out since the antigen present in the sample may be below the detection limit of the test. 12/13/17 08:41 Blood - Peripheral Aerobic Blood Culture - Preliminary No growth in 2 days 12/13/17 08:41 Blood - Peripheral Anaerobic Blood Culture - Preliminary No growth in 2 days 12/13/17 08:23 Blood - Peripheral Aerobic Blood Culture - Preliminary No growth in 2 days 12/13/17 08:23 Blood - Peripheral Anaerobic Blood Culture - Preliminary No growth in 2 days 12/13/17 08:28 Blood - Peripheral Aerobic Blood Culture - Preliminary No growth in 2 days 12/13/17 08:28 Blood - Peripheral Anaerobic Blood Culture - Preliminary No growth in 2 days - Imaging Impressions Lumbar Puncture Fluoroscopy 12/14/17 00:00 CONCLUSION: 1. Uncomplicated fluoroscopically guided lumbar puncture. Assessment and Plan - Plan Seen and examined, still with nausea/vomitting, unclear etiology. ? THC induced although symptoms now on going for over a week. No pain no diarrhea. Discussed DBT placement with pt and June. She will try to eat today if un successful will proceed with DBT placement. Biopsies from egd -ve.
--- NOTE | 2017-12-16 12:17 | P.PNID ---
Subjective Remarks: ID weekend coverage. Notes reviewed. Discussed with RN. Patient is a 57-year-old female, presented to the hospital with 2-3 day history of nausea and vomiting. She is also had decrease appetite due to the vomiting. On the day of admission she had chest pain so she was brought into the hospital for further evaluation and treatment. Cardiac workup currently did not reveal any OK. Patient had cardiac cath and it was okay. GI had evaluated the patient, and upper endoscopy showed evidence of some esophagitis and gastritis. Patient still having nausea and vomiting. She denies any significant abdominal pain. She has not had any fever chills or sweats. She has not had any prior problem with nausea and vomiting. Patient was found to have a wound on the left leg with some green drainage. Infectious disease consultation has been requested to evaluate the left leg wound. Patient apparently had a fall about a week ago and sustained some abrasions on her left leg. She has been doing her own wound care, she keeps the wound open to air during the day, and at night she puts Neosporin and she covers the wound. She has not really noted any significant pain or redness in her left leg or left thigh. Here in the hospital she is afebrile. Her WBC is normal. Says she feels a little better. Just starting to try p.o. intake in the form of milkshake. Patient is afebrile. No abdominal pain LP done - CSF ok Brain MRI negative Repeat CXR clear Blood culture has no growth. Urine culture pending. Antibiotics: vancomycin Cefepime Lines: PIV Past Medical History: Barretts esophagus Chiari malformation Hx of hysterectomy Hx of neck surgery Hx of rotator cuff surgery Allergies/Adverse Reactions: Allergies latex Allergy (Severe, Verified 12/12/17 10:31) Swelling Objective Vital Signs 12/15/17 15:00 12/15/17 19:00 12/15/17 23:00 Temperature 99.3 F 98.4 F 97.9 F Pulse Rate 69 65 68 Respiratory Rate 20 16 16 Blood Pressure 158/89 H 146/91 H 144/87 H Pulse Oximetry 96 97 96 12/16/17 03:00 12/16/17 07:00 12/16/17 09:00 Temperature 99.3 F 98.6 F Pulse Rate 64 72 Respiratory Rate 14 16 0 L Blood Pressure 164/96 H 158/90 H Pulse Oximetry 97 97 12/16/17 11:00 Temperature 98.7 F Pulse Rate 84 Respiratory Rate 18 Blood Pressure 123/58 L Pulse Oximetry 97 Intake & Output 12/15/17 12/16/17 12/16/17 18:59 06:59 18:59 Intake Total 2989 / 2989 1495 / 1495 200 / 200 Output Total 2100 / 2100 2150 / 2150 Balance 889 / 889 -655 / -655 200 / 200 Weight 91.3 kg Intake: IV 1465 / 1465 1015 / 1015 200 / 200 Brevibloc 2,500 mg/NS 250 mL 750 / 750 500 / 500 Premix 2,500 mg In 250 ml @ 50 MCG/KG/MIN 26.82 mls/hr IV.CONT TITRATE PRN Rx#:[id number] Maxipime Inj 2,000 MG In NS Inj 200 / 200 200 / 200 100 ML @ 200 mls/hr IV.SIG Q8H [facility] Rx#:[id number] Vancomycin Inj 1,500 MG In NS 515 / 515 515 / 515 Inj 500 ML @ 250 mls/hr IV.SIG Q12H [facility] Rx#:[id number] Oral 1440 / 1440 480 / 480 Tube Feeding 54 / 54 Water Bolus Amount 30 / 30 Output: Urine 2099 / 2099 1850 / 1850 Emesis 300 / 300 Other: # Bowel Movements 0 0 12/13/17 08:41 Blood - Peripheral Aerobic Blood Culture - Preliminary No growth in 3 days 12/13/17 08:41 Blood - Peripheral Anaerobic Blood Culture - Preliminary No growth in 3 days 12/13/17 08:23 Blood - Peripheral Aerobic Blood Culture - Preliminary No growth in 3 days 12/13/17 08:23 Blood - Peripheral Anaerobic Blood Culture - Preliminary No growth in 3 days 12/13/17 08:28 Blood - Peripheral Aerobic Blood Culture - Preliminary No growth in 3 days 12/13/17 08:28 Blood - Peripheral Anaerobic Blood Culture - Preliminary No growth in 3 days 12/14/17 16:10 Lumbar Puncture Gram Stain - Final 12/14/17 16:10 Lumbar Puncture CSF Culture - Preliminary No growth in 48 hours 12/15/17 22:48 Clean Catch Urine Urine Culture - Pending 12/14/17 16:10 Fluid - Other Acid Fast Bacilli Smear - Final No acid fast bacilli seen 12/14/17 16:10 Fluid - Other Mycobacterial Culture - Pending 12/15/17 10:44 Nasal Wash Influenza Types A,B Antigen - Final Negative for FLU A and B antigen Infection due to influenza A or B cannot be ruled out since the antigen present in the sample may be below the detection limit of the test. Lab - Hematology Results 12/14/17 12/15/17 18:30 04:35 WBC 9.8 8.6 RBC 4.79 4.41 Hgb 14.3 13.1 Hct 42.1 39.0 MCV 87.8 88.4 MCH 29.9 29.6 MCHC 34.1 33.5 RDW 13.5 13.2 Plt Count 257 333 MPV 8.7 7.7 Neut % (Auto) 89.6 H 68.9 Lymph % (Auto) 7.5 L 22.0 [place] % (Auto) 2.6 8.8 H Eos % (Auto) 0.0 0.0 Baso % (Auto) 0.3 0.3 Neut # (Auto) 8.7 H 5.9 Lymph # (Auto) 0.7 L 1.9 [place] # (Auto) 0.3 0.8 Eos # (Auto) 0.0 0.0 Baso # (Auto) 0.0 0.0 WBC Differential . . Differential Comment Auto diff final Auto diff final Lab - Chemistry Results 12/14/17 12/14/17 12/14/17 18:30 18:30 18:30 Sodium 135 L Potassium 3.6 Chloride 103 Carbon Dioxide 20.4 L Anion Gap 12 BUN 11 Creatinine 0.60 Estimated GFR Greater than 89 Random Glucose 102 Lactic Acid 0.6 Calcium 8.6 Magnesium 2.1 Total Bilirubin 0.6 AST 39 H ALT 26 Alkaline Phosphatase 72 Total Creatine Kinase 317 H CK-MB (CK-2) 3.7 H CK-MB (CK-2) % 1.2 Troponin I 0.89 H* D Total Protein 7.3 Albumin 3.6 TSH Free T4 12/14/17 12/14/17 12/15/17 18:30 18:30 00:07 Sodium Potassium Cancelled Chloride Carbon Dioxide Anion Gap BUN Creatinine Estimated GFR Random Glucose Lactic Acid Calcium Magnesium Cancelled Total Bilirubin AST ALT Alkaline Phosphatase Total Creatine Kinase CK-MB (CK-2) CK-MB (CK-2) % Troponin I Cancelled 0.84 H* Total Protein Albumin TSH Free T4 12/15/17 12/15/17 12/15/17 04:35 04:35 08:52 Sodium Potassium 3.4 L 3.9 Chloride Carbon Dioxide Anion Gap BUN Creatinine Estimated GFR Random Glucose Lactic Acid Calcium Magnesium 2.2 Total Bilirubin AST ALT Alkaline Phosphatase Total Creatine Kinase CK-MB (CK-2) CK-MB (CK-2) % Troponin I Total Protein Albumin TSH 0.181 L Free T4 12/15/17 12/16/17 12/16/17 08:52 04:25 04:25 Sodium 135 L Potassium 3.4 L Chloride 102 Carbon Dioxide 22.5 Anion Gap 11 BUN 10 Creatinine 0.56 Estimated GFR Greater than 89 Random Glucose 96 Lactic Acid Calcium 8.3 L Magnesium 1.8 Total Bilirubin AST ALT Alkaline Phosphatase Total Creatine Kinase CK-MB (CK-2) CK-MB (CK-2) % Troponin I Total Protein Albumin TSH Free T4 1.60 H Imaging: ITS Impressions Pulmonary Perfusion Imaging 12/12/17 20:24 CONCLUSION: 1. Low probability pulmonary embolism. Bile Acid Absorption NM 12/14/17 00:00 CONCLUSION: 1. Negative examination. No evidence for cystic duct or biliary ductal obstruction. Lumbar Puncture Fluoroscopy 12/14/17 00:00 CONCLUSION: 1. Uncomplicated fluoroscopically guided lumbar puncture. Head MRI 12/14/17 13:20 CONCLUSION: 1. No acute intracranial abnormality identified. 2. No abnormal enhancement identified. Chest X-Ray 12/14/17 19:23 CONCLUSION: The lungs are clear. Physical Exam: GENERAL: Alert and oriented, no acute distress. HEENT: Pupils reactive to light. Extraocular movements intact. No icterus. No conjunctival erythema. Oropharyngeal mucosa moist. NECK: Supple without adenopathy. No swelling. LUNGS: Decreased clear breath sounds. HEART: Regular S1 and S2. ABDOMEN: Bowel sounds present, soft, no tenderness appreciated. EXTREMITIES: No clubbing or cyanosis or edema. SKIN: No rash. NEUROLOGIC: No gross focal finding. PSYCH: Cooperative. Assessment and Plan - Plan Impression Superficial wound L leg, looks like an abrasion, no surrounding cellulitis Nausea and vomiting - has esophagitis and gastritis on EGD Normal cardiac cath NSVtach felt to be likely due to low K Fevers, no obvious source for bacterial infection, ?viral causing her GI symptoms Recommendation Wound care Continue Vanco and Cefepime If C/S negative, deescalate Abx Follow culture. Monitor temps.
[2017-12-16] MEDS: Vancomycin Inj 1,750 MG in Sodium Chlor 0.9% Inj 500 ML IV.SIG SCH (15:43)
--- NOTE | 2017-12-16 16:07 | P.PNCA ---
Subjective Interval history: Sitting up in bed without distress. Feeling a little better. Was able to hold down sherbert. Denies cp, sob, palpitations. Medications and Allergies Allergies Allergy/AdvReac Type Severity Reaction Status Date / Time latex Allergy Severe Swelling Verified 12/12/17 10:31 Home Medications Medication Instructions Recorded Confirmed Type estradiol 2 mg PO DAILY 12/12/17 12/12/17 History morphine 15 mg PO Q4-6H PRN 12/12/17 12/12/17 History oxycodone 10 mg PO Q4-6H PRN 12/12/17 12/12/17 History pantoprazole [Protonix] 20 mg PO DAILY 12/12/17 12/12/17 History Active Medications: Active Medications Acetaminophen (Tylenol) 650 mg PO Q4H PRN PRN Reason: FEVER Last Admin: 12/14/17 23:23 Dose: 650 mg Amlodipine Besylate (Norvasc) 5 mg PO DAILY [facility] Last Admin: 12/16/17 08:35 Dose: 5 mg Bisacodyl (Dulcolax Supp) 10 mg RECTAL DAILY [facility] Last Admin: 12/16/17 10:14 Dose: 10 mg Collagenase (Santyl Oint) 1 applicatio TOPICAL DAILY [facility] Last Admin: 12/16/17 08:35 Dose: 1 applicatio Dexamethasone Sodium Phosphate (Decadron Inj) 4 mg IV.PUSH Q12HR [facility] Last Admin: 12/16/17 08:34 Dose: 4 mg Enalaprilat (Vasotec Inj) 1.25 mg IV.PUSH Q8H PRN PRN Reason: HYPERTENSION Last Admin: 12/14/17 05:25 Dose: 1.25 mg Enoxaparin Sodium (Lovenox Inj) 30 mg SQ DAILY [facility] Last Admin: 12/16/17 08:34 Dose: 30 mg Hydralazine HCl (Apresoline Inj) 10 mg IV.PUSH Q8H PRN PRN Reason: SBP > 150 or DBP > 90 Last Admin: 12/16/17 04:46 Dose: 10 mg Potassium Chloride/Sodium Chloride (Potassium Chlor 20 Meq/Nacl 0.45% Inj) 1, 000 mls @ 42 mls/hr IV.CONT .[id number] [facility] Last Admin: 12/14/17 14:17 Dose: 42 mls/hr Cefepime HCl 2,000 mg/ Sodium (Chloride) 100 mls @ 200 mls/hr IV.SIG Q8H [facility] Last Infusion: 12/16/17 15:43 Dose: Infused Esmolol HCl (Brevibloc 2,500 Mg/Ns 250 Ml Premix) 2,500 mg in 250 mls @ 26.82 mls/hr IV.CONT TITRATE PRN; Protocol PRN Reason: Per Protocol Last Admin: 12/16/17 04:17 Dose: 100 mcg/kg/min, 53.64 mls/hr Magnesium Sulfate 4 gm/ Sodium (Chloride) 100 mls @ 50 mls/hr IV.SIG UNSCH PRN PRN Reason: For Magnesium 0.9 - 1.1 mg/dL Magnesium Sulfate 2 gm/ Sodium (Chloride) 100 mls @ 50 mls/hr IV.SIG UNSCH PRN PRN Reason: For Magnesium 1.2 - 1.6 mg/dL Potassium Chloride (Kcl 40 Meq Premix Inj) 40 meq in 100 mls @ 25 mls/hr IV.SIG Q2H PRN PRN Reason: For Potassium 2.8 - 3.2 mEq/L Potassium Chloride (Kcl 20 Meq Premix Inj) 20 meq in 100 mls @ 50 mls/hr IV.SIG Q2H PRN PRN Reason: For Potassium 3.3 - 3.5 mEq/L Potassium Chloride (Kcl 40 Meq Premix Inj) 40 meq in 100 mls @ 25 mls/hr IV.SIG UNSCH PRN PRN Reason: For Potassium 3.3 - 3.5 mEq/L Potassium Chloride (Kcl 20 Meq Premix Inj) 20 meq in 100 mls @ 50 mls/hr IV.SIG Q2H PRN PRN Reason: For Potassium 2.8 - 3.2 mEq/L Potassium Phosphate 30 mmol/ (Sodium Chloride) 260 mls @ 42 mls/hr IV.SIG UNSCH PRN PRN Reason: SEE LABEL COMMENTS Sodium Phosphate 30 mmol/ (Sodium Chloride) 260 mls @ 42 mls/hr IV.SIG UNSCH PRN PRN Reason: For Phosphorus < 2.5 mg/dL Vancomycin HCl 1,750 mg/ (Sodium Chloride) 517.5 mls @ 250 mls/hr IV.SIG Q12H [facility] Last Admin: 12/16/17 15:43 Dose: 250 mls/hr Lorazepam (Ativan Inj) 0.5 mg IV.PUSH Q6H PRN PRN Reason: ANXIETY Last Admin: 12/16/17 04:45 Dose: 0.5 mg Magnesium Oxide (Mag-Ox) 800 mg PO UNSCH PRN PRN Reason: For Magnesium 1.2 - 1.6 mg/dL Miscellaneous Information ([facility] Ordered Lab Info) 0 each OTHER ONCE ONE Stop: 12/18/17 03:46 Morphine Sulfate (Msir) 15 mg PO Q4H PRN PRN Reason: Pain 1-10 Morphine Sulfate (Morphine Inj) 2 mg IV.PUSH Q4H PRN PRN Reason: SEE LABEL COMMENTS Last Admin: 12/16/17 13:15 Dose: 2 mg Ondansetron HCl (Zofran Inj) 4 mg IV.PUSH Q6H PRN PRN Reason: NAUSEA Last Admin: 12/16/17 08:39 Dose: 4 mg Pantoprazole Sodium (Protonix Inj) 40 mg IV.PUSH Q12H [facility]HEW Last Admin: 12/16/17 06:00 Dose: 40 mg Pharmacy Profile Note (Vancomycin Consult Pharmacy) 1 each OTHER UNSCH PRN PRN Reason: Pharmacy to dose Potassium Bicarb/Potassium Chloride (K-Lyte Cl Eff) 50 meq PO UNSCH PRN PRN Reason: For Potassium 3.3 - 3.5 mEq/L Last Admin: 12/15/17 06:15 Dose: 50 meq Potassium Phosphate (K-Phos Original) 2,000 mg PO UNSCH PRN PRN Reason: SEE LABEL COMMENTS Potassium Phosphate (K-Phos Original) 2,000 mg PO Q4H PRN PRN Reason: Phosphorus Less Than 2.5 mg/dL Promethazine HCl (Phenergan Inj) 12.5 mg IM Q6H PRN PRN Reason: vomiting refractory to po Last Admin: 12/16/17 02:01 Dose: 12.5 mg Sodium Chloride (Ns Flush) 2 ml IV.FLUSH BID MATHEW Last Admin: 12/16/17 08:36 Dose: 2 ml Sodium Chloride (Ns Flush) 2 ml IV.FLUSH PRN PRN PRN Reason: FLUSH AFTER USING IV ACCESS Physical Exam Vital signs: Vital Signs 12/15/17 19:00 12/15/17 23:00 12/16/17 03:00 Temperature 98.4 F 97.9 F 99.3 F Pulse Rate 65 68 64 Respiratory Rate 16 16 14 Blood Pressure 146/91 H 144/87 H 164/96 H Pulse Oximetry 97 96 97 12/16/17 07:00 12/16/17 09:00 12/16/17 11:00 Temperature 98.6 F 98.7 F Pulse Rate 72 84 Respiratory Rate 16 0 L 18 Blood Pressure 158/90 H 123/58 L Pulse Oximetry 97 97 12/16/17 13:49 12/16/17 15:00 Temperature 98.5 F Pulse Rate 84 Respiratory Rate 0 L 18 Blood Pressure 141/81 H Pulse Oximetry 97 Intake & Output 12/15/17 12/16/17 12/16/17 18:59 06:59 18:59 Intake Total 2989 / 2989 1495 / 1495 300 / 300 Output Total 2099 2150 / 2150 Balance 889 / 889 -655 / -655 300 / 300 Weight 91.3 kg Intake: IV 1465 / 1465 1015 / 1015 300 / 300 Brevibloc 2,500 mg/NS 250 mL 750 / 750 500 / 500 Premix 2,500 mg In 250 ml @ 50 MCG/KG/MIN 26.82 mls/hr IV.CONT TITRATE PRN Rx#:[id number] Maxipime Inj 2,000 MG In NS Inj 200 / 200 300 / 300 100 ML @ 200 mls/hr IV.SIG Q8H [facility]W Rx#:[id number] Vancomycin Inj 1,500 MG In NS 515 / 515 515 / 515 Inj 500 ML @ 250 mls/hr IV.SIG Q12H [facility]W Rx#:[id number] Oral 1440 / 1440 480 / 480 Tube Feeding 54 / 54 Water Bolus Amount 30 / 30 Output: Urine 2099 / 2099 1850 / 1850 Emesis 300 / 300 Other: # Bowel Movements 0 0 Narrative: GENERAL: Awake, alert. No distress. SKIN: Warm and dry. L leg with dressing cdi. EYES: Pupils equal and round. No scleral icterus. No injection or drainage. ENT: No nasal bleeding or discharge. Mucous membranes pink and moist. CARDIOVASCULAR: Regular rate and rhythm. No murmurs. RESPIRATORY: No accessory muscle use. Clear to auscultation. Breath sounds equal bilaterally. On RA. GASTROINTESTINAL: Abdomen soft, nondistended, mildly tender to palpation diffusely. Extremities: No clubbing, cyanosis, or edema. No obvious deformities. MUSCULOSKELETAL: Normal ROM. Normal strength. NEUROLOGICAL: Awake and alert. No obvious cranial nerve deficits. PSYCHIATRIC: Appropriate mood and affect; insight and judgment normal. Results 12/15/17 04:35 12/16/17 20:11 Cardiac Enzymes 12/14/17 12/14/17 12/14/17 Range/Units 18:30 18:30 18:30 AST 39 H (15-37) U/L CK-MB (CK-2) 3.7 H (0.5-3.6) ng/mL Troponin I 0.89 H* D Cancelled (0.02-0.05) ng/mL 12/15/17 Range/Units 00:07 AST (15-37) U/L CK-MB (CK-2) (0.5-3.6) ng/mL Troponin I 0.84 H* (0.02-0.05) ng/mL CBC 12/14/17 12/15/17 Range/Units 18:30 04:35 WBC 9.8 8.6 (4.0-11.0) th/mm3 RBC 4.79 4.41 (4.00-5.30) mil/mm3 Hgb 14.3 13.1 (11.6-15.3) gm/dL Hct 42.1 39.0 (35.0-46.0) % Plt Count 257 333 (150-450) th/mm3 Neut # (Auto) 8.7 H 5.9 (1.8-7.7) th/mm3 Lymph # (Auto) 0.7 L 1.9 (1.0-4.8) th/mm3 Josephine # (Auto) 0.3 0.8 (0.0-0.9) th/mm3 Eos # (Auto) 0.0 0.0 (0.0-0.4) th/mm3 Baso # (Auto) 0.0 0.0 (0.0-0.2) th/mm3 Comprehensive Metabolic Panel 12/14/17 12/14/17 12/15/17 Range/Units 18:30 18:30 04:35 Sodium 135 L (136-145) meq/L Potassium 3.6 Cancelled 3.4 L (3.5-5.1) meq/L Chloride 103 (98-107) meq/L Carbon Dioxide 20.4 L (21.0-32.0) meq/L BUN 11 (7-18) mg/dL Creatinine 0.60 (0.50-1.00) mg/dL Calcium 8.6 (8.5-10.1) mg/dL AST 39 H (15-37) U/L ALT 26 (10-53) U/L Alkaline Phosphatase 72 (45-117) U/L Total Protein 7.3 (6.4-8.2) g/dL Albumin 3.6 (3.4-5.0) g/dL 12/15/17 12/16/17 Range/Units 08:52 04:25 Sodium 135 L (136-145) meq/L Potassium 3.9 3.4 L (3.5-5.1) meq/L Chloride 102 (98-107) meq/L Carbon Dioxide 22.5 (21.0-32.0) meq/L BUN 10 (7-18) mg/dL Creatinine 0.56 (0.50-1.00) mg/dL Calcium 8.3 L (8.5-10.1) mg/dL AST (15-37) U/L ALT (10-53) U/L Alkaline Phosphatase (45-117) U/L Total Protein (6.4-8.2) g/dL Albumin (3.4-5.0) g/dL Intake and Output 12/16/17 12/16/17 12/16/17 06:59 14:59 22:59 Intake Total 730 / 730 200 / 200 100 / 100 Output Total 2150 / 2150 Balance -1420 / -1420 200 / 200 100 / 100 Intake: IV 250 / 250 200 / 200 100 / 100 Brevibloc 2,500 mg/NS 250 mL 250 / 250 Premix 2,500 mg In 250 ml @ 50 MCG/KG/MIN 26.82 mls/hr IV.CONT TITRATE PRN Rx#:[id number] Maxipime Inj 2,000 MG In NS Inj 200 / 200 100 / 100 100 ML @ 200 mls/hr IV.SIG Q8H [facility]W Rx#:[id number] Oral 480 / 480 Output: Urine 1850 / 1850 Emesis 300 / 300 Other: # Bowel Movements 0 Weight 91.3 kg - Imaging and Cardiology Imaging: Impressions Lumbar Puncture Fluoroscopy 12/14/17 00:00 CONCLUSION: 1. Uncomplicated fluoroscopically guided lumbar puncture. Chest X-Ray 12/14/17 19:23 CONCLUSION: The lungs are clear. Assessment and Plan - Assessment (1) Nausea & vomiting Code(s): R11.2 - Nausea with vomiting, unspecified Status: Acute (2) Chest pain Code(s): R07.9 - Chest pain, unspecified Status: Acute (3) Hypertension Code(s): I10 - Essential (primary) hypertension Status: Acute (4) Nonsustained ventricular tachycardia Code(s): I47.2 - Ventricular tachycardia Status: Acute (5) Hypokalemia Code(s): E87.6 - Hypokalemia Status: Acute - Plan K+ 3.4 today. Replaced per protocol. Continue aggressive electrolyte replacement, keep potassium 4.0 or greater. Mg++ 1.8. New T wave inversion on telemetry. Will check 12 lead EKG. S/P cardiac catheterization, no evidence of acute coronary stenosis. Echo shows, preserved left ventricular function 55-60%. Continue esmolol drip. Will start metoprolol po as tolerated. Will wean off esmolol tomorrow if tolerating po. GI evaluation showed esophagitis, erosive gastritis. Continue with current cardiac treatment plan and adjust as needed. Pt. seen and examined. Not tolerating PO. continue iv esmolol for today. Replace K Code Status: Full Discussed Condition With: Dr Young
--- NOTE | 2017-12-16 17:31 | P.PNIM ---
Subjective Interval history: Patient was transferred to the cardiovascular ICU overnight due to ventricular tachycardia lasting approximately 160 beats. She was placed on esmolol drip overnight and her ventricular tachycardia dissipated and did not return. She remains persistently nauseous, unable to tolerate adequate meals. She was started on empiric treatment for risk of meningitis yesterday with IV Decadron and IV antibiotics. Physical Exam Vital signs: Vital Signs 12/15/17 19:00 12/15/17 23:00 12/16/17 03:00 Temperature 98.4 F 97.9 F 99.3 F Pulse Rate 65 68 64 Respiratory Rate 16 16 14 Blood Pressure 146/91 H 144/87 H 164/96 H Pulse Oximetry 97 96 97 12/16/17 07:00 12/16/17 09:00 12/16/17 11:00 Temperature 98.6 F 98.7 F Pulse Rate 72 84 Respiratory Rate 16 0 L 18 Blood Pressure 158/90 H 123/58 L Pulse Oximetry 97 97 12/16/17 13:49 12/16/17 15:00 Temperature 98.5 F Pulse Rate 84 Respiratory Rate 0 L 18 Blood Pressure 141/81 H Pulse Oximetry 97 Intake & Output 12/15/17 12/16/17 12/16/17 18:59 06:59 18:59 Intake Total 2989 / 2989 1495 / 1495 2132.5 / 2132.5 Output Total 2100 / 2100 2150 / 2150 1575 / 1575 Balance 889 / 889 -655 / -655 557.5 / 557.5 Weight 91.3 kg Intake: IV 1465 / 1465 1015 / 1015 1332.5 / 1332.5 Brevibloc 2,500 mg/NS 250 mL 750 / 750 500 / 500 Premix 2,500 mg In 250 ml @ 50 MCG/KG/MIN 26.82 mls/hr IV.CONT TITRATE PRN Rx#:[id number] Maxipime Inj 2,000 MG In NS Inj 200 / 200 300 / 300 100 ML @ 200 mls/hr IV.SIG Q8H [facility]W Rx#:[id number] Vancomycin Inj 1,750 MG In NS 515 / 515 515 / 515 1032.5 / 1032.5 Inj 500 ML @ 250 mls/hr IV.SIG Q12H [facility] Rx#:[id number] Oral 1440 / 1440 480 / 480 800 / 800 Tube Feeding 54 / 54 Water Bolus Amount 30 / 30 Output: Urine 2100 / 2100 1850 / 1850 1575 / 1575 Emesis 300 / 300 Other: # Bowel Movements 0 0 0 Narrative: GENERAL: AAOx3, no acute distress, generally weak appearing SKIN: Warm and dry. No rashes HEAD: Atruamtic, normocephalic. EYES: No scleral icterus. No injection or drainage. ENT: Moist mucous membranes, patent nares, no erythema of oropharynx. NECK: Supple, trachea midline. No JVD or lymphadenopathy. Normal thyroid. CARDIOVASCULAR: Regular rate and rhythm. No murmurs, gallops, or rubs. RESPIRATORY: Breath sounds clear equal bilaterally. No crackles or wheezes. No accessory muscle use. GASTROINTESTINAL: Abdomen soft, non-tender, nondistended, normal active bowel sounds MUSCULOSKELETAL: No cyanosis, or edema. NEURO: CN II-XII grossly intact, no focal deficits, no slurring of speech Results - Labs CBC & Chem 7: 12/15/17 04:35 12/16/17 04:25 Laboratory Results - last 24 hr 12/14/17 12/16/17 12/16/17 16:10 04:25 04:25 Sodium 135 L Potassium 3.4 L Chloride 102 Carbon Dioxide 22.5 Anion Gap 11 BUN 10 Creatinine 0.56 Estimated GFR Greater than 89 Random Glucose 96 Calcium 8.3 L Magnesium 1.8 CSF Herpes I DNA (PCR) Negative CSF Herpes II DNA (PCR) Negative Vancomycin Trough 14.1 H Microbiology 12/13/17 08:41 Blood - Peripheral Aerobic Blood Culture - Preliminary No growth in 3 days 12/13/17 08:41 Blood - Peripheral Anaerobic Blood Culture - Preliminary No growth in 3 days 12/13/17 08:23 Blood - Peripheral Aerobic Blood Culture - Preliminary No growth in 3 days 12/13/17 08:23 Blood - Peripheral Anaerobic Blood Culture - Preliminary No growth in 3 days 12/13/17 08:28 Blood - Peripheral Aerobic Blood Culture - Preliminary No growth in 3 days 12/13/17 08:28 Blood - Peripheral Anaerobic Blood Culture - Preliminary No growth in 3 days 12/14/17 16:10 Lumbar Puncture Gram Stain - Final 12/14/17 16:10 Lumbar Puncture CSF Culture - Preliminary No growth in 48 hours 12/14/17 16:10 Fluid - Other Acid Fast Bacilli Smear - Final No acid fast bacilli seen Assessment and Plan - Plan 57-year-old white female admitted for nausea vomiting chest pain. Recurring fevers, nausea, vomiting Covered empirically for meningitis, continuing cefepime, vancomycin, single dose of dexamethasone given at onset of treatment Etiology is unclear, onset was following a trip to [place] with dyspnea meals ingested, initial symptoms were only GI Consider food poisoning, patient has not received antibiotics until yesterday, now that she has antibiotics her fevers are mostly gone We will follow clinically to see if her other symptoms such as nausea and vomiting improve with antibiotics Continue with Phenergan as needed Appreciate infectious disease consult Ventricular tachycardia Patient was given magnesium infusion which assisted with controlling rate, continuing esmolol drip in cardiovascular ICU Stat labs did not reveal hyperkalemia Echocardiogram shows ejection fraction within normal limits, 55-60% Appreciate cardiology consult Hypokalemia Borderline today, pattern of stability Magnesium was also within normal limits today Chest pain Likely secondary to intractable vomiting EGD shows mild gastritis. HIDA scan is unremarkable. Leg wound Clean dressing of her leg wound, superficial wound by history DVT Prophylaxis Lovenox
--- NOTE | 2017-12-16 21:31 | ECG ---
Date Performed: 12/16/2017 Time Performed: 17:40:16 PTAGE: 57 years EKG: Sinus rhythm Nonspecific ST and T wave abnormalities Abnormal ECG Compared to prior electrocardiogram, ST segment and T wave changes are now present . PREVIOUS TRACING : 12/15/2017 04.53 DOCTOR: Taiwo Woo Interpretating Date/Time 12/16/2017 21:29:42
[2017-12-16] MEDS: Metoprolol Tartrate 25 MG Tablet PO SCH (22:29)
[2017-12-17] MEDS: Vancomycin Inj 1,750 MG in Sodium Chlor 0.9% Inj 500 ML IV.SIG SCH ×2 (03:42→16:12)
[2017-12-17] MEDS: Esmolol 2,500 mg/250 mL Premix 2,500 MG/250 ML BAG IV.CONT PRN (03:59)
[2017-12-17 05:20] LABS: Hematocrit 38.5 % (35.0-46.0); Hemoglobin 13.2 gm/dL (11.6-15.3); Mean Corpuscular HGB Conc 34.2 % (32.0-36.0); Mean Corpuscular Hemoglobin 29.7 pg (27.0-34.0); Mean Platelet Volume 7.6 fL (7.0-11.0); Platelet Count 341 th/mm3 (150-450); Red Blood Count 4.43 mil/mm3 (4.00-5.30); Red Cell Distribution Width 13.3 % (11.6-17.2); White Blood Count 6.8 th/mm3 (4.0-11.0)
[2017-12-17 05:34] LABS: Calcium 8.2 mg/dL (8.5-10.1); Carbon Dioxide 21.8 meq/L (21.0-32.0); Magnesium 1.8 mg/dL (1.5-2.5); Potassium 3.6 meq/L (3.5-5.1)
[2017-12-17] MEDS: Morphine Sulfate Inj 2 MG/ML Vial IV.PUSH PRN ×4 (06:37→21:28)
[2017-12-17] MEDS: Pantoprazole Inj 40 MG Vial IV.PUSH SCH ×2 (06:40→17:30)
--- NOTE | 2017-12-17 08:52 | P.PNIM ---
Subjective Interval history: Patient is beginning to feel better today, nausea is mostly subsided and she has been trying small amounts of food. She has not yet had a bowel movement. Physical Exam Vital signs: Vital Signs 12/16/17 09:00 12/16/17 11:00 12/16/17 13:49 Temperature 98.7 F Pulse Rate 84 Respiratory Rate 0 L 18 0 L Blood Pressure 123/58 L Pulse Oximetry 97 12/16/17 15:00 12/16/17 19:00 12/16/17 20:12 Temperature 98.5 F 99.2 F Pulse Rate 84 64 65 Respiratory Rate 18 18 Blood Pressure 141/81 H 147/80 H Pulse Oximetry 97 96 12/16/17 23:00 12/17/17 03:00 12/17/17 04:01 Temperature 99.0 F 99.0 F Pulse Rate 74 69 73 Respiratory Rate 18 18 Blood Pressure 115/64 115/64 Pulse Oximetry 97 97 12/17/17 07:00 Temperature 98.9 F Pulse Rate 62 Respiratory Rate 18 Blood Pressure 123/88 Pulse Oximetry 97 Intake & Output 12/16/17 12/17/17 12/17/17 18:59 06:59 18:59 Intake Total 2382.5 / 2382.5 350 / 350 617.5 / 617.5 Output Total 2375 / 2375 Balance 7.5 / 7.5 350 / 350 617.5 / 617.5 Intake: IV 1582.5 / 1582.5 350 / 350 617.5 / 617.5 Brevibloc 2,500 mg/NS 250 mL 250 / 250 250 / 250 Premix 2,500 mg In 250 ml @ 50 MCG/KG/MIN 26.82 mls/hr IV.CONT TITRATE PRN Rx#:[id number] Maxipime Inj 2,000 MG In NS Inj 300 / 300 100 / 100 100 / 100 100 ML @ 200 mls/hr IV.SIG Q8H [facility]HEW Rx#:[id number] Vancomycin Inj 1,750 MG In NS 1032.5 / 1032.5 517.5 / 517.5 Inj 500 ML @ 250 mls/hr IV.SIG Q12H [facility]HEW Rx#:[id number] Oral 800 / 800 Output: Urine 2375 / 2375 Other: Date of Last Bowel Movement 09/23/18 # Bowel Movements 0 Narrative: GENERAL: AAOx3, no acute distress, regaining strength SKIN: Warm and dry. No rashes HEAD: Atruamtic, normocephalic. EYES: No scleral icterus. No injection or drainage. ENT: Moist mucous membranes, patent nares, no erythema of oropharynx. NECK: Supple, trachea midline. No JVD or lymphadenopathy. Normal thyroid. CARDIOVASCULAR: Regular rate and rhythm. No murmurs, gallops, or rubs. RESPIRATORY: Breath sounds clear equal bilaterally. No crackles or wheezes. No accessory muscle use. GASTROINTESTINAL: Abdomen soft, non-tender, nondistended, hypoactive bowel sounds MUSCULOSKELETAL: No cyanosis, or edema. NEURO: CN II-XII grossly intact, no focal deficits, no slurring of speech Results - Labs CBC & Chem 7: 12/17/17 04:58 12/17/17 04:58 Laboratory Results - last 24 hr 12/14/17 12/14/17 12/16/17 00:00 16:10 04:25 WBC RBC Hgb Hct MCV MCH MCHC RDW Plt Count MPV Sodium Potassium Chloride Carbon Dioxide Anion Gap BUN Creatinine Estimated GFR Random Glucose Calcium Magnesium 1.8 CSF Herpes I DNA (PCR) Negative CSF Herpes II DNA (PCR) Negative Enterovirus Source Csf Enterovirus RNA (PCR) Negative 12/16/17 12/17/17 12/17/17 20:11 04:58 04:58 WBC 6.8 RBC 4.43 Hgb 13.2 Hct 38.5 MCV 87.0 MCH 29.7 MCHC 34.2 RDW 13.3 Plt Count 341 MPV 7.6 Sodium 135 L Potassium 3.5 3.6 Chloride 103 Carbon Dioxide 21.8 Anion Gap 10 BUN 8 Creatinine 0.72 Estimated GFR 84 L Random Glucose 142 H Calcium 8.2 L Magnesium 1.8 CSF Herpes I DNA (PCR) CSF Herpes II DNA (PCR) Enterovirus Source Enterovirus RNA (PCR) Microbiology 12/14/17 16:10 Lumbar Puncture Gram Stain - Final 12/14/17 16:10 Lumbar Puncture CSF Culture - Final No growth in 72 hours 12/13/17 08:41 Blood - Peripheral Aerobic Blood Culture - Preliminary No growth in 3 days 12/13/17 08:41 Blood - Peripheral Anaerobic Blood Culture - Preliminary No growth in 3 days 12/13/17 08:23 Blood - Peripheral Aerobic Blood Culture - Preliminary No growth in 3 days 12/13/17 08:23 Blood - Peripheral Anaerobic Blood Culture - Preliminary No growth in 3 days 12/13/17 08:28 Blood - Peripheral Aerobic Blood Culture - Preliminary No growth in 3 days 12/13/17 08:28 Blood - Peripheral Anaerobic Blood Culture - Preliminary No growth in 3 days Assessment and Plan - Plan 57-year-old white female admitted for nausea vomiting chest pain. Recurring fevers, nausea, vomiting Etiology is unclear, onset was following a trip to [place] with meals ingested, initial symptoms were only GI Consider food poisoning, continue vancomycin and cefepime, continue Phenergan Symptoms are improving on current treatments Appreciate infectious disease consult Ventricular tachycardia Patient was given magnesium infusion initially, then controlled with esmolol drip, now converting to p.o. metoprolol Echocardiogram shows ejection fraction within normal limits, 55-60% Appreciate cardiology consult Hypokalemia Borderline, overall stable Magnesium was also within normal again Chest pain Likely secondary to intractable vomiting EGD shows mild gastritis. HIDA scan is unremarkable. Leg wound Clean dressing of her leg wound, superficial wound by history DVT Prophylaxis Lovenox
[2017-12-17] MEDS ORDERED: Senna/Docusate Sodium 8.6/50 MG Tablet PO PRN (08:53)
[2017-12-17] MEDS: Enoxaparin Inj 30 MG/0.3 ML Syringe SQ SCH (09:05)
[2017-12-17] MEDS: Metoprolol Tartrate 25 MG Tablet PO SCH ×2 (09:05→21:17)
[2017-12-17] MEDS: Bisacodyl 10 MG Supp RECTAL SCH (09:38)
[2017-12-17] MEDS: amLODIPine 5 MG Tablet PO SCH (09:38)
[2017-12-17] MEDS: Collagenase Oint 30 GM Tube TOPICAL SCH (09:39)
--- NOTE | 2017-12-17 09:50 | P.PNGI ---
Subjective Interval history: Labs reviewed hemoglobin stable at 13.2 Patient was able to eat oatmeal and has kept it down so far times 1 hour. Last vomiting episode this past p.m. No bowel movements even 2 days before admission , 6-7 days, attempting to drink small amounts of liquids <Margaret Ojeda - Last Filed: 12/17/17 15:37> Physical Exam Vital signs: Vital Signs 12/16/17 13:49 12/16/17 15:00 12/16/17 19:00 Temperature 98.5 F Pulse Rate 84 64 Respiratory Rate 0 L 18 Blood Pressure 141/81 H Pulse Oximetry 97 12/16/17 20:12 12/16/17 23:00 12/17/17 03:00 Temperature 99.2 F 99.0 F Pulse Rate 65 74 69 Respiratory Rate 18 18 Blood Pressure 147/80 H 115/64 Pulse Oximetry 96 97 12/17/17 04:01 12/17/17 07:00 Temperature 99.0 F 99.0 F Pulse Rate 73 62 Respiratory Rate 18 18 Blood Pressure 115/64 123/88 Pulse Oximetry 97 97 Intake & Output 12/16/17 12/17/17 12/17/17 18:59 06:59 18:59 Intake Total 2382.5 / 2382.5 350 / 350 617.5 / 617.5 Output Total 2375 / 2375 Balance 7.5 / 7.5 350 / 350 617.5 / 617.5 Intake: IV 1582.5 / 1582.5 350 / 350 617.5 / 617.5 Brevibloc 2,500 mg/NS 250 mL 250 / 250 250 / 250 Premix 2,500 mg In 250 ml @ 50 MCG/KG/MIN 26.82 mls/hr IV.CONT TITRATE PRN Rx#:[id number] Maxipime Inj 2,000 MG In NS Inj 300 / 300 100 / 100 100 / 100 100 ML @ 200 mls/hr IV.SIG Q8H MATHEW Rx#:[id number] Vancomycin Inj 1,750 MG In NS 1032.5 / 1032.5 517.5 / 517.5 Inj 500 ML @ 250 mls/hr IV.SIG Q12H MATHEW Rx#:[id number] Oral 800 / 800 Output: Urine 2375 / 2375 Other: Date of Last Bowel Movement 12/10/17 # Bowel Movements 0 <Pauline Kuhn - Last Filed: 12/17/17 11:55> Vital signs: Vital Signs 12/16/17 11:00 12/16/17 13:49 12/16/17 15:00 Temperature 98.7 F 98.5 F Pulse Rate 84 84 Respiratory Rate 18 0 L 18 Blood Pressure 123/58 L 141/81 H Pulse Oximetry 97 97 12/16/17 19:00 12/16/17 20:12 12/16/17 23:00 Temperature 99.2 F 99.0 F Pulse Rate 64 65 74 Respiratory Rate 18 18 Blood Pressure 147/80 H 115/64 Pulse Oximetry 96 97 12/17/17 03:00 12/17/17 04:01 12/17/17 07:00 Temperature 99.0 F 99.0 F Pulse Rate 69 73 62 Respiratory Rate 18 18 Blood Pressure 115/64 123/88 Pulse Oximetry 97 97 Intake & Output 12/16/17 12/17/17 12/17/17 18:59 06:59 18:59 Intake Total 2382.5 / 2382.5 350 / 350 617.5 / 617.5 Output Total 2375 / 2375 Balance 7.5 / 7.5 350 / 350 617.5 / 617.5 Intake: IV 1582.5 / 1582.5 350 / 350 617.5 / 617.5 Brevibloc 2,500 mg/NS 250 mL 250 / 250 250 / 250 Premix 2,500 mg In 250 ml @ 50 MCG/KG/MIN 26.82 mls/hr IV.CONT TITRATE PRN Rx#:[id number] Maxipime Inj 2,000 MG In NS Inj 300 / 300 100 / 100 100 / 100 100 ML @ 200 mls/hr IV.SIG Q8H MATHEW Rx#:[id number] Vancomycin Inj 1,750 MG In NS 1032.5 / 1032.5 517.5 / 517.5 Inj 500 ML @ 250 mls/hr IV.SIG Q12H MATHEW Rx#:[id number] Oral 800 / 800 Output: Urine 2375 / 2375 Other: Date of Last Bowel Movement 12/10/17 # Bowel Movements 0 - Constitutional mild distress, obese, cooperative - Routine HEENT Exam Head: Present: normocephalic ENT: Present: mucous membranes dry - Routine Neck Exam Present: supple - Routine Respiratory Exam Present: accessory muscle use (No obvious shortness of breath wheezing or rhonchi) - Routine Cardiovascular Exam Present: S1, S2 - Routine Abdominal Exam Present: distended (Mild distention, taut, minimal if any bowel sounds heard) - Routine Skin Exam Present: intact - Routine Neurological Exam Present: alert <Margaret Ojeda - Last Filed: 12/17/17 15:37> Results - Labs CBC & Chem 7: 12/17/17 04:58 12/17/17 04:58 Laboratory Results - last 24 hr 12/14/17 12/16/17 12/17/17 00:00 20:11 04:58 WBC 6.8 RBC 4.43 Hgb 13.2 Hct 38.5 MCV 87.0 MCH 29.7 MCHC 34.2 RDW 13.3 Plt Count 341 MPV 7.6 Sodium Potassium 3.5 Chloride Carbon Dioxide Anion Gap BUN Creatinine Estimated GFR Random Glucose Calcium Magnesium Enterovirus Source Csf Enterovirus RNA (PCR) Negative 12/17/17 04:58 WBC RBC Hgb Hct MCV MCH MCHC RDW Plt Count MPV Sodium 135 L Potassium 3.6 Chloride 103 Carbon Dioxide 21.8 Anion Gap 10 BUN 8 Creatinine 0.72 Estimated GFR 84 L Random Glucose 142 H Calcium 8.2 L Magnesium 1.8 Enterovirus Source Enterovirus RNA (PCR) Microbiology 12/13/17 08:41 Blood - Peripheral Aerobic Blood Culture - Preliminary No growth in 4 days 12/13/17 08:41 Blood - Peripheral Anaerobic Blood Culture - Preliminary No growth in 4 days 12/13/17 08:23 Blood - Peripheral Aerobic Blood Culture - Preliminary No growth in 4 days 12/13/17 08:23 Blood - Peripheral Anaerobic Blood Culture - Preliminary No growth in 4 days 12/13/17 08:28 Blood - Peripheral Aerobic Blood Culture - Preliminary No growth in 4 days 12/13/17 08:28 Blood - Peripheral Anaerobic Blood Culture - Preliminary No growth in 4 days 12/14/17 16:10 Lumbar Puncture Gram Stain - Final 12/14/17 16:10 Lumbar Puncture CSF Culture - Final No growth in 72 hours <Pauline Kuhn - Last Filed: 12/17/17 11:55> - Labs CBC & Chem 7: 12/17/17 04:58 12/17/17 04:58 Laboratory Results - last 24 hr 12/14/17 12/16/17 12/16/17 00:00 04:25 20:11 WBC RBC Hgb Hct MCV MCH MCHC RDW Plt Count MPV Sodium Potassium 3.5 Chloride Carbon Dioxide Anion Gap BUN Creatinine Estimated GFR Random Glucose Calcium Magnesium 1.8 Enterovirus Source Csf Enterovirus RNA (PCR) Negative 12/17/17 12/17/17 04:58 04:58 WBC 6.8 RBC 4.43 Hgb 13.2 Hct 38.5 MCV 87.0 MCH 29.7 MCHC 34.2 RDW 13.3 Plt Count 341 MPV 7.6 Sodium 135 L Potassium 3.6 Chloride 103 Carbon Dioxide 21.8 Anion Gap 10 BUN 8 Creatinine 0.72 Estimated GFR 84 L Random Glucose 142 H Calcium 8.2 L Magnesium 1.8 Enterovirus Source Enterovirus RNA (PCR) Microbiology 12/14/17 16:10 Lumbar Puncture Gram Stain - Final 12/14/17 16:10 Lumbar Puncture CSF Culture - Final No growth in 72 hours 12/13/17 08:41 Blood - Peripheral Aerobic Blood Culture - Preliminary No growth in 3 days 12/13/17 08:41 Blood - Peripheral Anaerobic Blood Culture - Preliminary No growth in 3 days 12/13/17 08:23 Blood - Peripheral Aerobic Blood Culture - Preliminary No growth in 3 days 12/13/17 08:23 Blood - Peripheral Anaerobic Blood Culture - Preliminary No growth in 3 days 12/13/17 08:28 Blood - Peripheral Aerobic Blood Culture - Preliminary No growth in 3 days 12/13/17 08:28 Blood - Peripheral Anaerobic Blood Culture - Preliminary No growth in 3 days <Margaret Ojeda - Last Filed: 12/17/17 15:37> Assessment and Plan - Plan Seen and examined with PRODUCT ARCHITECT, feels better today. Was able to tolerated some po diet. DBT on hold. No BM in 5 days. Mag citrate po when able to tolerate. The exam, history, and the medical decision-making described in the above note were completed with the assistance of the mid-level provider. I reviewed and agree with the findings presented. I attest that I had a [id number] encounter with the patient on the same day, and personally performed and documented my assessment and findings in the medical record. <Pauline Kuhn - Last Filed: 12/17/17 11:55> - Plan Intractable nausea/vomiting EGD done due to reports of NSAID use EGD --> Class A esophagitis, biopsy. Erythematous gastritis in the gastric antrum, biopsy. Normal duodenal mucosa in the bulb and second portion of the duodenum. HIDA scan --> No evidence for cystic duct or biliary ductal obstruction. - Constipation- no BM in a few days. States stools are irregular at home secondary to IBS. Denies more constipation or diarrhea. - Fevers and headache- unclear etiology- being worked up for rule out meningitis - LP ordered and MR head 12/16/[address] Kuhn, seen and examined, still with nausea/vomitting, unclear etiology. ? THC induced although symptoms now on going for over a week. No pain no diarrhea. Discussed DBT placement with pt and Maricel. She will try to eat today if un successful will proceed with DBT placement. Biopsies from egd - ve. 12/17/2017 patient still has decreased appetite but is attempting to eat and was able to keep down oatmeal this a.m. at least for the past hour. Notes her last vomiting episode was this past p.m. abdomen does show some abdominal distention and some bloating. No bowel movement for 6-7 days, and patient has had doses of bowel regimens including Relistor which is been ineffective. This a.m. minimal bowel sounds heard, and at this point need to rule out ileus. Current hemoglobin 13.2 no obvious bleeding noted. 1536 abdominal x-ray did show transverse colon dilatation. Mild ileus, patient is now n.p.o. with a few ice chips. Will need aggressive laxatives when she can tolerate p.o. Plan Diet as tolerated for now KUB ordered to rule out ileus, dependent on findings patient may need NG tube Continue bowel regimen, including Dulcolax suppository today PPI Further recommendations to follow supportive care Patient was seen per myself and Dr. Kuhn, note was written on his behalf <Margaret Ojeda - Last Filed: 12/17/17 15:37>
--- NOTE | 2017-12-17 09:55 | P.PNID ---
Subjective Remarks: ID weekend coverage. Notes reviewed. Discussed with RN. Patient is a 57-year-old female, presented to the hospital with 2-3 day history of nausea and vomiting. She is also had decrease appetite due to the vomiting. On the day of admission she had chest pain so she was brought into the hospital for further evaluation and treatment. Cardiac workup currently did not reveal any MD. Patient had cardiac cath and it was okay. GI had evaluated the patient, and upper endoscopy showed evidence of some esophagitis and gastritis. Patient still having nausea and vomiting. She denies any significant abdominal pain. She has not had any fever chills or sweats. She has not had any prior problem with nausea and vomiting. Patient was found to have a left leg wound, and he had some green drainage. Infectious disease consultation has been requested to evaluate the left leg wound. Patient apparently had a fall about a week ago and sustained some abrasions on her left leg. She has been doing her own wound care, she keeps the wound open to air during the day, and at night she puts Neosporin and she covers the wound. She has not really noted any significant pain or redness in her left leg or left thigh. Here in the hospital she is afebrile. Her WBC is normal. Had vomiting, several episodes overnight. Started about an hour after eating. Afebrile. Says she has Right upper abdominal pain. LP done - CSF ok Brain MRI negative Repeat CXR clear Blood culture has no growth. Urine culture pending. Antibiotics: vancomycin Cefepime Lines: PIV Past Medical History: Barretts esophagus Chiari malformation Hx of hysterectomy Hx of neck surgery Hx of rotator cuff surgery Allergies/Adverse Reactions: Allergies latex Allergy (Severe, Verified 12/12/17 10:31) Swelling Objective Vital Signs 12/16/17 11:00 12/16/17 13:49 12/16/17 15:00 Temperature 98.7 F 98.5 F Pulse Rate 84 84 Respiratory Rate 18 0 L 18 Blood Pressure 123/58 L 141/81 H Pulse Oximetry 97 97 12/16/17 19:00 12/16/17 20:12 12/16/17 23:00 Temperature 99.2 F 99.0 F Pulse Rate 64 65 74 Respiratory Rate 18 18 Blood Pressure 147/80 H 115/64 Pulse Oximetry 96 97 12/17/17 03:00 12/17/17 04:01 12/17/17 07:00 Temperature 99.0 F 99.0 F Pulse Rate 69 73 62 Respiratory Rate 18 18 Blood Pressure 115/64 123/88 Pulse Oximetry 97 97 Intake & Output 12/16/17 12/17/17 12/17/17 18:59 06:59 18:59 Intake Total 2382.5 / 2382.5 350 / 350 617.5 / 617.5 Output Total 2375 / 2375 Balance 7.5 / 7.5 350 / 350 617.5 / 617.5 Intake: IV 1582.5 / 1582.5 350 / 350 617.5 / 617.5 Brevibloc 2,500 mg/NS 250 mL 250 / 250 250 / 250 Premix 2,500 mg In 250 ml @ 50 MCG/KG/MIN 26.82 mls/hr IV.CONT TITRATE PRN Rx#:[id number] Maxipime Inj 2,000 MG In NS Inj 300 / 300 100 / 100 100 / 100 100 ML @ 200 mls/hr IV.SIG Q8H MATHEW Rx#:[id number] Vancomycin Inj 1,750 MG In NS 1032.5 / 1032.5 517.5 / 517.5 Inj 500 ML @ 250 mls/hr IV.SIG Q12H MATHEW Rx#:[id number] Oral 800 / 800 Output: Urine 2375 / 2375 Other: Date of Last Bowel Movement 12/10/17 # Bowel Movements 0 12/14/17 16:10 Lumbar Puncture Gram Stain - Final 12/14/17 16:10 Lumbar Puncture CSF Culture - Final No growth in 72 hours 12/13/17 08:41 Blood - Peripheral Aerobic Blood Culture - Preliminary No growth in 3 days 12/13/17 08:41 Blood - Peripheral Anaerobic Blood Culture - Preliminary No growth in 3 days 12/13/17 08:23 Blood - Peripheral Aerobic Blood Culture - Preliminary No growth in 3 days 12/13/17 08:23 Blood - Peripheral Anaerobic Blood Culture - Preliminary No growth in 3 days 12/13/17 08:28 Blood - Peripheral Aerobic Blood Culture - Preliminary No growth in 3 days 12/13/17 08:28 Blood - Peripheral Anaerobic Blood Culture - Preliminary No growth in 3 days 12/15/17 22:48 Clean Catch Urine Urine Culture - Pending 12/14/17 16:10 Fluid - Other Acid Fast Bacilli Smear - Final No acid fast bacilli seen 12/14/17 16:10 Fluid - Other Mycobacterial Culture - Pending 12/15/17 10:44 Nasal Wash Influenza Types A,B Antigen - Final Negative for FLU A and B antigen Infection due to influenza A or B cannot be ruled out since the antigen present in the sample may be below the detection limit of the test. Lab - Hematology Results 12/17/17 04:58 WBC 6.8 RBC 4.43 Hgb 13.2 Hct 38.5 MCV 87.0 MCH 29.7 MCHC 34.2 RDW 13.3 Plt Count 341 MPV 7.6 Lab - Chemistry Results 12/15/17 12/15/17 12/16/17 08:52 08:52 04:25 Sodium 135 L Potassium 3.9 3.4 L Chloride 102 Carbon Dioxide 22.5 Anion Gap 11 BUN 10 Creatinine 0.56 Estimated GFR Greater than 89 Random Glucose 96 Calcium 8.3 L Magnesium Free T4 1.60 H 12/16/17 12/16/17 12/17/17 04:25 20:11 04:58 Sodium 135 L Potassium 3.5 3.6 Chloride 103 Carbon Dioxide 21.8 Anion Gap 10 BUN 8 Creatinine 0.72 Estimated GFR 84 L Random Glucose 142 H Calcium 8.2 L Magnesium 1.8 1.8 Free T4 Imaging: ITS Impressions Pulmonary Perfusion Imaging 12/12/17 20:24 CONCLUSION: 1. Low probability pulmonary embolism. Bile Acid Absorption NM 12/14/17 00:00 CONCLUSION: 1. Negative examination. No evidence for cystic duct or biliary ductal obstruction. Lumbar Puncture Fluoroscopy 12/14/17 00:00 CONCLUSION: 1. Uncomplicated fluoroscopically guided lumbar puncture. Head MRI 12/14/17 13:20 CONCLUSION: 1. No acute intracranial abnormality identified. 2. No abnormal enhancement identified. Chest X-Ray 12/14/17 19:23 CONCLUSION: The lungs are clear. Physical Exam: GENERAL: Alert and oriented, no acute distress. HEENT: Pupils reactive to light. Extraocular movements intact. No icterus. No conjunctival erythema. Oropharyngeal mucosa moist. NECK: Supple without adenopathy. No swelling. LUNGS: Decreased clear breath sounds. HEART: Regular S1 and S2. ABDOMEN: Bowel sounds present, soft, Mild right upper quadrant tenderness. EXTREMITIES: No clubbing or cyanosis or edema. abrasion at left tibia. No erythema. SKIN: No rash. NEUROLOGIC: No gross focal finding. PSYCH: calm and Cooperative. Assessment and Plan - Plan Impression Superficial wound L leg, looks like an abrasion, no surrounding cellulitis Nausea and vomiting - has esophagitis and gastritis on EGD Normal cardiac cath NSVtach felt to be likely due to low K Fevers, no obvious source for bacterial infection, ?viral causing her GI symptoms Temp improved and WBC normal. Recommendation Wound care Stop Vanco and Cefepime. Monitor urine culture.
--- NOTE | 2017-12-17 12:43 | XR ---
EXAM DATE: 12/17/2017 12:00 AM EDT AGE/SEX: 57 years / Female INDICATIONS: Possible Ileus. No bowel movements for a week. Abdomen pain. Vomiting. CLINICAL DATA: This is the patient's initial encounter. Patient reports that signs and symptoms have been present for 1 week and indicates a pain score of 5/10. MEDICAL/SURGICAL HISTORY: Hypertension. . Fusion, cervical. Hysterectomy. Rotator cuff, right COMPARISON: [facility], CT ABDOMEN & PELVIS W/O CONTRAST, 12/12/2017. . FINDINGS: 2 supine frontal views of the abdomen demonstrate gaseous distention of the colon, primarily the tra nsverse colon. There is mild gaseous distention of the stomach. No abnormally dilated small bowel is appreciated. There is no organomegaly or abnormal calcifications. Visualized lungs are clear. Bones d emonstrate no acute abnormality. CONCLUSION: Gaseous dilatation of the transverse colon. There are no findings to indicate bowel obstruction. The mildly dilated colon could represent a mild ileus. Electronically signed by: Brown Tanner MD 12/17/2017 12:41 PM EDT
--- NOTE | 2017-12-17 16:24 | P.PNCA ---
Subjective Interval history: Sitting up in bed without distress. Feeling a little better. No further vomiting. Has been able to hold down her pills. Not taking much po due to fear of vomiting. Medications and Allergies Allergies Allergy/AdvReac Type Severity Reaction Status Date / Time latex Allergy Severe Swelling Verified 12/12/17 10:31 Home Medications Medication Instructions Recorded Confirmed Type estradiol 2 mg PO DAILY 12/12/17 12/12/17 History morphine 15 mg PO Q4-6H PRN 12/12/17 12/12/17 History oxycodone 10 mg PO Q4-6H PRN 12/12/17 12/12/17 History pantoprazole [Protonix] 20 mg PO DAILY 12/12/17 12/12/17 History Active Medications: Active Medications Acetaminophen (Tylenol) 650 mg PO Q4H PRN PRN Reason: FEVER Last Admin: 12/14/17 23:23 Dose: 650 mg Amlodipine Besylate (Norvasc) 5 mg PO DAILY [facility] Last Admin: 12/17/17 09:38 Dose: Not Given Bisacodyl (Dulcolax Supp) 10 mg RECTAL DAILY [facility] Last Admin: 12/17/17 09:38 Dose: Not Given Collagenase (Santyl Oint) 1 applicatio TOPICAL DAILY [facility] Last Admin: 12/17/17 09:39 Dose: 1 applicatio Enalaprilat (Vasotec Inj) 1.25 mg IV.PUSH Q8H PRN PRN Reason: HYPERTENSION Last Admin: 12/14/17 05:25 Dose: 1.25 mg Enoxaparin Sodium (Lovenox Inj) 30 mg SQ DAILY [facility] Last Admin: 12/17/17 09:05 Dose: 30 mg Hydralazine HCl (Apresoline Inj) 10 mg IV.PUSH Q8H PRN PRN Reason: SBP > 150 or DBP > 90 Last Admin: 12/16/17 21:09 Dose: 10 mg Potassium Chloride/Sodium Chloride (Potassium Chlor 20 Meq/Nacl 0.45% Inj) 1, 000 mls @ 42 mls/hr IV.CONT .[id number] [facility] Last Admin: 12/14/17 14:17 Dose: 42 mls/hr Cefepime HCl 2,000 mg/ Sodium (Chloride) 100 mls @ 200 mls/hr IV.SIG Q8H [facility] Last Admin: 12/17/17 13:30 Dose: 100 mls/hr Esmolol HCl (Brevibloc 2,500 Mg/Ns 250 Ml Premix) 2,500 mg in 250 mls @ 26.82 mls/hr IV.CONT TITRATE PRN; Protocol PRN Reason: Per Protocol Last Titration: 12/17/17 14:54 Dose: Infused Magnesium Sulfate 4 gm/ Sodium (Chloride) 100 mls @ 50 mls/hr IV.SIG UNSCH PRN PRN Reason: For Magnesium 0.9 - 1.1 mg/dL Magnesium Sulfate 2 gm/ Sodium (Chloride) 100 mls @ 50 mls/hr IV.SIG UNSCH PRN PRN Reason: For Magnesium 1.2 - 1.6 mg/dL Potassium Chloride (Kcl 40 Meq Premix Inj) 40 meq in 100 mls @ 25 mls/hr IV.SIG Q2H PRN PRN Reason: For Potassium 2.8 - 3.2 mEq/L Potassium Chloride (Kcl 20 Meq Premix Inj) 20 meq in 100 mls @ 50 mls/hr IV.SIG Q2H PRN PRN Reason: For Potassium 3.3 - 3.5 mEq/L Potassium Chloride (Kcl 40 Meq Premix Inj) 40 meq in 100 mls @ 25 mls/hr IV.SIG UNSCH PRN PRN Reason: For Potassium 3.3 - 3.5 mEq/L Potassium Chloride (Kcl 20 Meq Premix Inj) 20 meq in 100 mls @ 50 mls/hr IV.SIG Q2H PRN PRN Reason: For Potassium 2.8 - 3.2 mEq/L Potassium Phosphate 30 mmol/ (Sodium Chloride) 260 mls @ 42 mls/hr IV.SIG UNSCH PRN PRN Reason: SEE LABEL COMMENTS Sodium Phosphate 30 mmol/ (Sodium Chloride) 260 mls @ 42 mls/hr IV.SIG UNSCH PRN PRN Reason: For Phosphorus < 2.5 mg/dL Vancomycin HCl 1,750 mg/ (Sodium Chloride) 517.5 mls @ 250 mls/hr IV.SIG Q12H [facility]HEW Last Admin: 12/17/17 16:12 Dose: 250 mls/hr Lorazepam (Ativan Inj) 0.5 mg IV.PUSH Q6H PRN PRN Reason: ANXIETY Last Admin: 12/16/17 21:10 Dose: 0.5 mg Magnesium Oxide (Mag-Ox) 800 mg PO UNSCH PRN PRN Reason: For Magnesium 1.2 - 1.6 mg/dL Metoprolol Tartrate (Lopressor) 25 mg PO BID [facility] Last Admin: 12/17/17 09:05 Dose: 25 mg Miscellaneous Information ([facility] Ordered Lab Info) 0 each OTHER ONCE ONE Stop: 12/18/17 03:46 Morphine Sulfate (Msir) 15 mg PO Q4H PRN PRN Reason: Pain 1-10 Morphine Sulfate (Morphine Inj) 2 mg IV.PUSH Q4H PRN PRN Reason: SEE LABEL COMMENTS Last Admin: 12/17/17 11:08 Dose: 2 mg Ondansetron HCl (Zofran Inj) 4 mg IV.PUSH Q6H PRN PRN Reason: NAUSEA Last Admin: 12/16/17 18:51 Dose: 4 mg Pantoprazole Sodium (Protonix Inj) 40 mg IV.PUSH Q12H [facility] Last Admin: 12/17/17 06:40 Dose: 40 mg Pharmacy Profile Note (Vancomycin Consult Pharmacy) 1 each OTHER UNSCH PRN PRN Reason: Pharmacy to dose Potassium Bicarb/Potassium Chloride (K-Lyte Cl Eff) 50 meq PO UNSCH PRN PRN Reason: For Potassium 3.3 - 3.5 mEq/L Last Admin: 12/15/17 06:15 Dose: 50 meq Potassium Phosphate (K-Phos Original) 2,000 mg PO UNSCH PRN PRN Reason: SEE LABEL COMMENTS Potassium Phosphate (K-Phos Original) 2,000 mg PO Q4H PRN PRN Reason: Phosphorus Less Than 2.5 mg/dL Promethazine HCl (Phenergan Inj) 12.5 mg IM Q6H PRN PRN Reason: vomiting refractory to po Last Admin: 12/17/17 06:38 Dose: 12.5 mg Senna/Docusate Sodium (Oriana-Colace) 1 tab PO BID PRN PRN Reason: CONSTIPATION Sodium Chloride (Ns Flush) 2 ml IV.FLUSH BID [facility] Last Admin: 12/17/17 09:39 Dose: 2 ml Sodium Chloride (Ns Flush) 2 ml IV.FLUSH PRN PRN PRN Reason: FLUSH AFTER USING IV ACCESS Physical Exam Vital signs: Vital Signs 12/16/17 19:00 12/16/17 20:12 12/16/17 23:00 Temperature 99.2 F 99.0 F Pulse Rate 64 65 74 Respiratory Rate 18 18 Blood Pressure 147/80 H 115/64 Pulse Oximetry 96 97 12/17/17 03:00 12/17/17 04:01 12/17/17 07:00 Temperature 99.0 F 99.0 F Pulse Rate 69 73 62 Respiratory Rate 18 18 Blood Pressure 115/64 123/88 Pulse Oximetry 97 97 12/17/17 11:00 12/17/17 15:00 Temperature 98.9 F 98.6 F Pulse Rate 60 81 Respiratory Rate 18 Blood Pressure 138/72 107/72 Pulse Oximetry 98 97 Intake & Output 12/16/17 12/17/17 12/17/17 18:59 06:59 18:59 Intake Total 2382.5 / 2382.5 350 / 350 917.5 / 917.5 Output Total 2375 / 2375 Balance 7.5 / 7.5 350 / 350 917.5 / 917.5 Intake: IV 1582.5 / 1582.5 350 / 350 917.5 / 917.5 Brevibloc 2,500 mg/NS 250 mL 250 / 250 250 / 250 300 / 300 Premix 2,500 mg In 250 ml @ 50 MCG/KG/MIN 26.82 mls/hr IV.CONT TITRATE PRN Rx#:[id number] Maxipime Inj 2,000 MG In NS Inj 300 / 300 100 / 100 100 / 100 100 ML @ 200 mls/hr IV.SIG Q8H [facility] Rx#:[id number] Vancomycin Inj 1,750 MG In NS 1032.5 / 1032.5 517.5 / 517.5 Inj 500 ML @ 250 mls/hr IV.SIG Q12H MATHEW Rx#:[id number] Oral 800 / 800 Output: Urine 2375 / 2375 Other: Date of Last Bowel Movement 12/10/17 # Bowel Movements 0 Narrative: GENERAL: Awake, alert. No acute distress. SKIN: Warm and dry. L leg dressing - cdi. HEAD: Atraumtic, normocephalic. EYES: No scleral icterus. No injection or drainage. ENT: Moist mucous membranes, patent nares, no erythema of oropharynx. NECK: Supple, trachea midline. No JVD or lymphadenopathy. Normal thyroid. CARDIOVASCULAR: Regular rate and rhythm. No murmurs, gallops, or rubs. RESPIRATORY: Breath sounds clear equal bilaterally. No crackles or wheezes. No accessory muscle use. GASTROINTESTINAL: Abdomen soft, non-tender, nondistended, hypoactive bowel sounds MUSCULOSKELETAL: No cyanosis, or edema. NEURO: CN II-XII grossly intact, no focal deficits, no slurring of speech Results 12/17/17 04:58 12/17/17 04:58 CBC 12/17/17 Range/Units 04:58 WBC 6.8 (4.0-11.0) th/mm3 RBC 4.43 (4.00-5.30) mil/mm3 Hgb 13.2 (11.6-15.3) gm/dL Hct 38.5 (35.0-46.0) % Plt Count 341 (150-450) th/mm3 Comprehensive Metabolic Panel 12/16/17 12/16/17 12/17/17 Range/Units 04:25 20:11 04:58 Sodium 135 L 135 L (136-145) meq/L Potassium 3.4 L 3.5 3.6 (3.5-5.1) meq/L Chloride 102 103 (98-107) meq/L Carbon Dioxide 22.5 21.8 (21.0-32.0) meq/L BUN 10 8 (7-18) mg/dL Creatinine 0.56 0.72 (0.50-1.00) mg/dL Calcium 8.3 L 8.2 L (8.5-10.1) mg/dL Intake and Output 12/17/17 12/17/17 12/17/17 06:59 14:59 22:59 Intake Total 350 / 350 917.5 / 917.5 Balance 350 / 350 917.5 / 917.5 Intake: IV 350 / 350 917.5 / 917.5 Brevibloc 2,500 mg/NS 250 mL 250 / 250 300 / 300 Premix 2,500 mg In 250 ml @ 50 MCG/KG/MIN 26.82 mls/hr IV.CONT TITRATE PRN Rx#:[id number] Maxipime Inj 2,000 MG In NS Inj 100 / 100 100 / 100 100 ML @ 200 mls/hr IV.SIG Q8H [facility] Rx#:[id number] Vancomycin Inj 1,750 MG In NS 517.5 / 517.5 Inj 500 ML @ 250 mls/hr IV.SIG Q12H [facility] Rx#:[id number] Other: Date of Last Bowel Movement 12/10/17 - Imaging and Cardiology Imaging: Impressions Abdomen X-Ray 12/17/17 00:00 CONCLUSION: Gaseous dilatation of the transverse colon. There are no findings to indicate bowel obstruction. The mildly dilated colon could represent a mild ileus. Assessment and Plan - Assessment (1) Nausea & vomiting Code(s): R11.2 - Nausea with vomiting, unspecified Status: Acute (2) Chest pain Code(s): R07.9 - Chest pain, unspecified Status: Acute (3) Hypertension Code(s): I10 - Essential (primary) hypertension Status: Acute (4) Nonsustained ventricular tachycardia Code(s): I47.2 - Ventricular tachycardia Status: Acute (5) Hypokalemia Code(s): E87.6 - Hypokalemia Status: Acute - Plan K+ 3.6 today. Continue to monitor and replace per protocol. Keep potassium 4.0 or greater. Mg++ 1.8. T wave inversion on telemetry. S/P cardiac catheterization, no evidence of acute coronary stenosis. Echo shows, preserved left ventricular function 55-60%. Tolerating po metoprolol. Esmolol drip was discontinued. GI evaluation showed esophagitis, erosive gastritis. Continue with current cardiac treatment plan and adjust as needed. Dr. Vaughan to follow tomorrow. Pt. seen and examined. Tolerating po beta jayde. No further arrhythmias. stable
[2017-12-18] MEDS: Morphine Sulfate Inj 2 MG/ML Vial IV.PUSH PRN ×4 (02:14→16:48)
[2017-12-18] MEDS ORDERED: Pharmacy Ordered Lab Info OTHER ONE (03:45)
[2017-12-18 04:59] LABS: Hematocrit 36.9 % (35.0-46.0); Hemoglobin 12.7 gm/dL (11.6-15.3); Mean Corpuscular HGB Conc 34.5 % (32.0-36.0); Mean Corpuscular Hemoglobin 29.9 pg (27.0-34.0); Mean Corpuscular Volume 86.7 fL (80.0-100.0); Mean Platelet Volume 7.9 fL (7.0-11.0); Platelet Count 286 th/mm3 (150-450); Red Blood Count 4.26 mil/mm3 (4.00-5.30); Red Cell Distribution Width 12.9 % (11.6-17.2); White Blood Count 6.4 th/mm3 (4.0-11.0)
[2017-12-18 05:16] LABS: Anion Gap 9 meq/L (5-15); Blood Urea Nitrogen 7 mg/dL (7-18); Calcium 8.1 mg/dL (8.5-10.1); Carbon Dioxide 24.6 meq/L (21.0-32.0); Chloride 104 meq/L (98-107); Glomerular Filtration Rate Greater Than 89 mL/min (>89); Glucose,Random 85 mg/dL (74-106); Magnesium 1.8 mg/dL (1.5-2.5); Potassium 3.1 meq/L (3.5-5.1); Sodium 138 meq/L (136-145)
[2017-12-18] MEDS: Pantoprazole Inj 40 MG Vial IV.PUSH SCH ×2 (05:17→17:33)
[2017-12-18] MEDS: Vancomycin Inj 1,750 MG in Sodium Chlor 0.9% Inj 500 ML IV.SIG SCH (05:18)
[2017-12-18] MEDS: amLODIPine 5 MG Tablet PO SCH (08:14)
[2017-12-18] MEDS: Bisacodyl 10 MG Supp RECTAL SCH (08:14)
[2017-12-18] MEDS: Enoxaparin Inj 30 MG/0.3 ML Syringe SQ SCH (08:14)
[2017-12-18] MEDS: Metoprolol Tartrate 25 MG Tablet PO SCH ×2 (08:14→20:22)
[2017-12-18] MEDS: Collagenase Oint 30 GM Tube TOPICAL SCH (08:16)
[2017-12-18] MEDS ORDERED: amLODIPine 5 MG Tablet PO PRN (08:42)
[2017-12-18] MEDS: Senna/Docusate Sodium 8.6/50 MG Tablet PO SCH (09:05)
--- NOTE | 2017-12-18 09:57 | P.PNGI ---
Subjective Interval history: Pt is resting in bed, no nausea or vomiting, no abd pain, hasn't had BM for a week. <Sera Park - Last Filed: 12/20/17 00:06> Physical Exam Vital signs: Vital Signs 12/17/17 23:00 12/18/17 03:00 12/18/17 05:15 Temperature 98.7 F 97.8 F Pulse Rate 72 57 L Respiratory Rate 14 14 16 Blood Pressure 116/67 131/76 Pulse Oximetry 95 95 12/18/17 07:00 12/18/17 10:16 12/18/17 11:00 Temperature 98.2 F 99.5 F Pulse Rate 72 77 Respiratory Rate 16 16 17 Blood Pressure 136/70 130/74 Pulse Oximetry 95 98 12/18/17 15:00 12/18/17 17:33 Temperature 98.3 F Pulse Rate 77 Respiratory Rate 16 15 Blood Pressure 121/65 Pulse Oximetry 98 Intake & Output 12/18/17 12/18/17 12/19/17 06:59 18:59 06:59 Intake Total 1437.5 / 1437.5 1080 / 1080 515 / 515 Output Total 2400 / 2400 1300 / 1300 Balance -962.5 / -962.5 -220 / -220 515 / 515 Weight 90.9 kg Intake: IV 717.5 / 717.5 600 / 600 515 / 515 Maxipime Inj 2,000 MG In NS Inj 200 / 200 100 / 100 100 ML @ 200 mls/hr IV.SIG Q8H [facility] Rx#:[id number] Vancomycin Inj 1,500 MG In NS 517.5 / 517.5 500 / 500 515 / 515 Inj 500 ML @ 250 mls/hr IV.SIG Q12H MATHEW Rx#:[id number] Oral 720 / 720 480 / 480 Output: Urine 2400 / 2400 1300 / 1300 Emesis 0 / 0 Other: # Bowel Movements 0 <Samuel Chavarria - Last Filed: 12/18/17 21:34> Vital signs: Vital Signs 12/17/17 11:00 12/17/17 15:00 12/17/17 19:00 Temperature 98.9 F 98.6 F 98 F Pulse Rate 60 81 75 Respiratory Rate 18 18 14 Blood Pressure 138/72 107/72 130/69 Pulse Oximetry 98 97 96 12/17/17 23:00 12/18/17 03:00 12/18/17 05:15 Temperature 98.7 F 97.8 F Pulse Rate 72 57 L Respiratory Rate 14 14 16 Blood Pressure 116/67 131/76 Pulse Oximetry 95 95 12/18/17 07:00 Temperature 98.2 F Pulse Rate 72 Respiratory Rate 16 Blood Pressure 136/70 Pulse Oximetry 95 Intake & Output 12/17/17 12/18/17 12/18/17 18:59 06:59 18:59 Intake Total 1967.5 / 1967.5 1437.5 / 1437.5 500 / 500 Output Total 1200 / 1200 2400 / 2400 Balance 767.5 / 767.5 -962.5 / -962.5 500 / 500 Weight 90.9 kg Intake: IV 1017.5 / 1017.5 717.5 / 717.5 500 / 500 Brevibloc 2,500 mg/NS 250 mL 300 / 300 Premix 2,500 mg In 250 ml @ 50 MCG/KG/MIN 26.82 mls/hr IV.CONT TITRATE PRN Rx#:[id number] Maxipime Inj 2,000 MG In NS Inj 200 / 200 200 / 200 100 ML @ 200 mls/hr IV.SIG Q8H [facility] Rx#:[id number] Vancomycin Inj 1,750 MG In NS 517.5 / 517.5 517.5 / 517.5 500 / 500 Inj 500 ML @ 250 mls/hr IV.SIG Q12H [facility] Rx#:[id number] Oral 950 / 950 720 / 720 Output: Urine 1200 / 1200 2400 / 2400 Emesis 0 / 0 Other: # Bowel Movements 0 0 Narrative: GENERAL: Awake, alert. No acute distress. NECK: Supple, trachea midline. No JVD or lymphadenopathy. Normal thyroid. CARDIOVASCULAR: Regular rate and rhythm. No murmurs, gallops, or rubs. RESPIRATORY: Breath sounds clear equal bilaterally. No crackles or wheezes. No accessory muscle use. GASTROINTESTINAL: Abdomen soft, non-tender, nondistended, hypoactive bowel sounds MUSCULOSKELETAL: No cyanosis, or edema. NEURO: no focal deficits, no slurring of speech <Sera Park - Last Filed: 12/20/17 00:06> Results - Labs CBC & Chem 7: 12/18/17 03:17 12/18/17 03:17 Laboratory Results - last 24 hr 12/18/17 12/18/17 12/18/17 03:17 03:17 03:17 WBC 6.4 RBC 4.26 Hgb 12.7 Hct 36.9 MCV 86.7 MCH 29.9 MCHC 34.5 RDW 12.9 Plt Count 286 MPV 7.9 Sodium 138 Potassium 3.1 L Chloride 104 Carbon Dioxide 24.6 Anion Gap 9 BUN 7 Creatinine 0.57 Estimated GFR Greater than 89 Random Glucose 85 Calcium 8.1 L Magnesium 1.8 Vancomycin Trough 20.8 H Microbiology 12/13/17 08:41 Blood - Peripheral Aerobic Blood Culture - Final No growth in 5 days 12/13/17 08:41 Blood - Peripheral Anaerobic Blood Culture - Final No growth in 5 days 12/13/17 08:23 Blood - Peripheral Aerobic Blood Culture - Final No growth in 5 days 12/13/17 08:23 Blood - Peripheral Anaerobic Blood Culture - Final No growth in 5 days 12/13/17 08:28 Blood - Peripheral Aerobic Blood Culture - Final No growth in 5 days 12/13/17 08:28 Blood - Peripheral Anaerobic Blood Culture - Final No growth in 5 days 12/15/17 22:48 Clean Catch Urine Urine Culture - Final No growth in 48 hours - Imaging Impressions Abdomen X-Ray 12/18/17 00:00 CONCLUSION: Resolution of the previously seen colonic ileus <Samuel Chavarria E - Last Filed: 12/18/17 21:34> - Labs CBC & Chem 7: 12/18/17 03:17 12/19/17 03:58 Laboratory Results - last 24 hr 12/18/17 12/18/17 12/18/17 03:17 03:17 03:17 WBC 6.4 RBC 4.26 Hgb 12.7 Hct 36.9 MCV 86.7 MCH 29.9 MCHC 34.5 RDW 12.9 Plt Count 286 MPV 7.9 Sodium 138 Potassium 3.1 L Chloride 104 Carbon Dioxide 24.6 Anion Gap 9 BUN 7 Creatinine 0.57 Estimated GFR Greater than 89 Random Glucose 85 Calcium 8.1 L Magnesium 1.8 Vancomycin Trough 20.8 H Microbiology 12/15/17 22:48 Clean Catch Urine Urine Culture - Final No growth in 48 hours 12/13/17 08:41 Blood - Peripheral Aerobic Blood Culture - Preliminary No growth in 4 days 12/13/17 08:41 Blood - Peripheral Anaerobic Blood Culture - Preliminary No growth in 4 days 12/13/17 08:23 Blood - Peripheral Aerobic Blood Culture - Preliminary No growth in 4 days 12/13/17 08:23 Blood - Peripheral Anaerobic Blood Culture - Preliminary No growth in 4 days 12/13/17 08:28 Blood - Peripheral Aerobic Blood Culture - Preliminary No growth in 4 days 12/13/17 08:28 Blood - Peripheral Anaerobic Blood Culture - Preliminary No growth in 4 days 12/14/17 16:10 Lumbar Puncture Gram Stain - Final 12/14/17 16:10 Lumbar Puncture CSF Culture - Final No growth in 72 hours - Imaging Impressions Abdomen X-Ray 12/17/17 00:00 CONCLUSION: Gaseous dilatation of the transverse colon. There are no findings to indicate bowel obstruction. The mildly dilated colon could represent a mild ileus. <Sera Park - Last Filed: 12/20/17 00:06> Assessment and Plan - Plan Patient seen and examined Agree with above Continue with current supportive care Monitor labs Patient tells me she has passed gas and the KUB shows resolution of the ileus Advance diet as tolerated, advance activity as tolerated Not much to add from a GI perspective at this point we will sign off <Samuel Chavarria - Last Filed: 12/18/17 21:34> - Plan Intractable nausea/vomiting No more nausea or vomiting EGD --> Class A esophagitis, biopsy. Erythematous gastritis in the gastric antrum, biopsy. Normal duodenal mucosa in the bulb and second portion of the duodenum. Biopsies from egd benign HIDA scan --> No evidence for cystic duct or biliary ductal obstruction. - Constipation/ileus- no BM in a few days. patient has had doses of bowel regimens including Relistor which is been ineffective. Abdomen X-Ray 12/17/17 00:00 Gaseous dilatation of the transverse colon. There are no findings to indicate bowel obstruction. The mildly dilated colon could represent a mild ileus. - Fevers and headache- unclear etiology- being worked up for rule out meningitis - MR head negative ID on the case, no obvious source of infection - Ventricular tachycardia- S/P cardiac catheterization, no evidence of acute coronary stenosis. Plan NPO Add miralax Cont. Phenergan KUB today consider ngt or christine Continue bowel regimen encourage ambulation minimize pain meds PPI Further recommendations to follow supportive care Patient was seen per myself and Dr. chavarria and note was written on his behalf <Sera Park - Last Filed: 12/20/17 00:06>
[2017-12-18] MEDS: Polyethylene Glycol 3350 17 GM Packet PO SCH (11:46)
--- NOTE | 2017-12-18 12:18 | P.PNIM ---
Subjective Interval history: Patient states she is feeling much better today, minimal nausea, tolerating p.o. , but abdomen is slightly bloated. Physical Exam Vital signs: Vital Signs 12/17/17 15:00 12/17/17 19:00 12/17/17 23:00 Temperature 98.6 F 98 F 98.7 F Pulse Rate 81 75 72 Respiratory Rate 18 14 14 Blood Pressure 107/72 130/69 116/67 Pulse Oximetry 97 96 95 12/18/17 03:00 12/18/17 05:15 12/18/17 07:00 Temperature 97.8 F 98.2 F Pulse Rate 57 L 72 Respiratory Rate 14 16 16 Blood Pressure 131/76 136/70 Pulse Oximetry 95 95 12/18/17 10:16 12/18/17 11:00 Temperature 99.5 F Pulse Rate 77 Respiratory Rate 16 17 Blood Pressure 130/74 Pulse Oximetry 98 Intake & Output 12/17/17 12/18/17 12/18/17 18:59 06:59 18:59 Intake Total 1967.5 / 1967.5 1437.5 / 1437.5 500 / 500 Output Total 1200 / 1200 2400 / 2400 Balance 767.5 / 767.5 -962.5 / -962.5 500 / 500 Weight 90.9 kg Intake: IV 1017.5 / 1017.5 717.5 / 717.5 500 / 500 Brevibloc 2,500 mg/NS 250 mL 300 / 300 Premix 2,500 mg In 250 ml @ 50 MCG/KG/MIN 26.82 mls/hr IV.CONT TITRATE PRN Rx#:[id number] Maxipime Inj 2,000 MG In NS Inj 200 / 200 200 / 200 100 ML @ 200 mls/hr IV.SIG Q8H [facility] Rx#:[id number] Vancomycin Inj 1,750 MG In NS 517.5 / 517.5 517.5 / 517.5 500 / 500 Inj 500 ML @ 250 mls/hr IV.SIG Q12H [facility] Rx#:[id number] Oral 950 / 950 720 / 720 Output: Urine 1200 / 1200 2400 / 2400 Emesis 0 / 0 Other: # Bowel Movements 0 0 Narrative: GENERAL: AAOx3, no acute distress, improved energy SKIN: Warm and dry. No rashes HEAD: Atruamtic, normocephalic. EYES: No scleral icterus. No injection or drainage. ENT: Moist mucous membranes, patent nares, no erythema of oropharynx. NECK: Supple, trachea midline. No JVD or lymphadenopathy. Normal thyroid. CARDIOVASCULAR: Regular rate and rhythm. No murmurs, gallops, or rubs. RESPIRATORY: Breath sounds clear equal bilaterally. No crackles or wheezes. No accessory muscle use. GASTROINTESTINAL: Abdomen soft, non-tender, nondistended, hypoactive bowel sounds MUSCULOSKELETAL: No cyanosis, or edema. NEURO: CN II-XII grossly intact, no focal deficits, no slurring of speech Results - Labs CBC & Chem 7: 12/18/17 03:17 12/18/17 03:17 Laboratory Results - last 24 hr 12/18/17 12/18/17 12/18/17 03:17 03:17 03:17 WBC 6.4 RBC 4.26 Hgb 12.7 Hct 36.9 MCV 86.7 MCH 29.9 MCHC 34.5 RDW 12.9 Plt Count 286 MPV 7.9 Sodium 138 Potassium 3.1 L Chloride 104 Carbon Dioxide 24.6 Anion Gap 9 BUN 7 Creatinine 0.57 Estimated GFR Greater than 89 Random Glucose 85 Calcium 8.1 L Magnesium 1.8 Vancomycin Trough 20.8 H Microbiology 12/13/17 08:41 Blood - Peripheral Aerobic Blood Culture - Final No growth in 5 days 12/13/17 08:41 Blood - Peripheral Anaerobic Blood Culture - Final No growth in 5 days 12/13/17 08:23 Blood - Peripheral Aerobic Blood Culture - Final No growth in 5 days 12/13/17 08:23 Blood - Peripheral Anaerobic Blood Culture - Final No growth in 5 days 12/13/17 08:28 Blood - Peripheral Aerobic Blood Culture - Final No growth in 5 days 12/13/17 08:28 Blood - Peripheral Anaerobic Blood Culture - Final No growth in 5 days 12/15/17 22:48 Clean Catch Urine Urine Culture - Final No growth in 48 hours 12/14/17 16:10 Lumbar Puncture Gram Stain - Final 12/14/17 16:10 Lumbar Puncture CSF Culture - Final No growth in 72 hours - Imaging Impressions Abdomen X-Ray 12/17/17 00:00 CONCLUSION: Gaseous dilatation of the transverse colon. There are no findings to indicate bowel obstruction. The mildly dilated colon could represent a mild ileus. Assessment and Plan - Plan 57-year-old white female admitted for nausea vomiting chest pain. Recurring fevers, nausea, vomiting Etiology is unclear, onset was following a trip to [place] with meals ingested, initial symptoms were only GI Consider food poisoning, continue vancomycin and cefepime, continue Phenergan Symptoms are mostly resolved at this point Appreciate infectious disease consult Abdominal bloating Abdominal x-ray yesterday showed gas pattern consistent with possible mild ileus Follow-up KUB x-ray is pending Patient is n.p.o. until follow-up KUB results are available If KUB shows no evidence of bowel obstruction, consider advancing diet to regular Ventricular tachycardia Patient was given magnesium infusion initially, then controlled with esmolol drip, now converting to p.o. metoprolol Echocardiogram shows ejection fraction within normal limits, 55-60% No recurrence in the last 48 hours Appreciate cardiology consult Hypokalemia Borderline, overall stable, now mostly resolved Magnesium was also within normal again Chest pain Likely secondary to intractable vomiting, now resolved EGD shows mild gastritis. HIDA scan is unremarkable. Leg wound Clean dressing of her leg wound, superficial wound by history DVT Prophylaxis Lovenox Disposition Patient is stable for transfer out of the critical care unit and onto stepdown unit.
--- NOTE | 2017-12-18 15:38 | XR ---
EXAM DATE: 12/18/2017 12:00 AM EDT AGE/SEX: 57 years / Female INDICATIONS: Ileus. CLINICAL DATA: This is the patient's initial encounter. Patient reports that signs and symptoms have been present for 1 week and indicates a pain score of 0/10. MEDICAL/SURGICAL HISTORY: Hypertension. Hysterectomy. cervical fusion, right rotator cuff surge ry COMPARISON: [facility], ABDOMEN 1V KUB, 12/17/2017. . FINDINGS: The bowel gas pattern appears normal. No free air is identified. No organomegaly is evident. The col on has decompressed. No free air is identified. No organomegaly is evident. CONCLUSION: Resolution of the previously seen colonic ileus Electronically signed by: Curly Godinez MD 12/18/2017 3:36 PM EDT
[2017-12-18] MEDS: Vancomycin Inj 1,500 MG in Sodium Chlor 0.9% Inj 500 ML IV.SIG SCH (16:18)
--- NOTE | 2017-12-18 18:49 | P.PNCA ---
Subjective Interval history: Patient reports feeling much better this a.m., no further vomiting. Potassium continues to run low at 3.1 today, potassium replacement ordered. We will continue to follow closely. No further episodes of V. tach noted on telemetry. Patient has not had a bowel movement in over 7 days, GI is following closely. Medications and Allergies Allergies Allergy/AdvReac Type Severity Reaction Status Date / Time latex Allergy Severe Swelling Verified 12/12/17 10:31 Home Medications Medication Instructions Recorded Confirmed Type estradiol 2 mg PO DAILY 12/12/17 12/19/17 History morphine 15 mg PO TID PRN 12/12/17 12/19/17 History oxycodone 10 mg PO BID PRN 12/12/17 12/19/17 History pantoprazole [Protonix] 40 mg PO DAILY 12/12/17 12/19/17 History Active Medications: Active Medications Acetaminophen (Tylenol) 650 mg PO Q4H PRN PRN Reason: FEVER Last Admin: 12/14/17 23:23 Dose: 650 mg Amlodipine Besylate (Norvasc) 5 mg PO DAILY PRN PRN Reason: HYPERTENSION Bisacodyl (Dulcolax Supp) 10 mg RECTAL DAILY [facility] Last Admin: 12/18/17 08:14 Dose: 10 mg Collagenase (Santyl Oint) 1 applicatio TOPICAL DAILY [facility] Last Admin: 12/18/17 08:16 Dose: 1 applicatio Enalaprilat (Vasotec Inj) 1.25 mg IV.PUSH Q8H PRN PRN Reason: HYPERTENSION Last Admin: 12/14/17 05:25 Dose: 1.25 mg Enoxaparin Sodium (Lovenox Inj) 30 mg SQ DAILY [facility] Last Admin: 12/18/17 08:14 Dose: 30 mg Hydralazine HCl (Apresoline Inj) 10 mg IV.PUSH Q8H PRN PRN Reason: SBP > 150 or DBP > 90 Last Admin: 12/16/17 21:09 Dose: 10 mg Potassium Chloride/Sodium Chloride (Potassium Chlor 20 Meq/Nacl 0.45% Inj) 1, 000 mls @ 42 mls/hr IV.CONT .[id number] [facility] Last Admin: 12/14/17 14:17 Dose: 42 mls/hr Cefepime HCl 2,000 mg/ Sodium (Chloride) 100 mls @ 200 mls/hr IV.SIG Q8H [facility]HEW Last Infusion: 12/18/17 16:16 Dose: Infused Esmolol HCl (Brevibloc 2,500 Mg/Ns 250 Ml Premix) 2,500 mg in 250 mls @ 26.82 mls/hr IV.CONT TITRATE PRN; Protocol PRN Reason: Per Protocol Last Titration: 12/17/17 14:54 Dose: Infused Magnesium Sulfate 4 gm/ Sodium (Chloride) 100 mls @ 50 mls/hr IV.SIG UNSCH PRN PRN Reason: For Magnesium 0.9 - 1.1 mg/dL Magnesium Sulfate 2 gm/ Sodium (Chloride) 100 mls @ 50 mls/hr IV.SIG UNSCH PRN PRN Reason: For Magnesium 1.2 - 1.6 mg/dL Sodium Phosphate 30 mmol/ (Sodium Chloride) 260 mls @ 42 mls/hr IV.SIG UNSCH PRN PRN Reason: For Phosphorus < 2.5 mg/dL Vancomycin HCl 1,500 mg/ (Sodium Chloride) 515 mls @ 250 mls/hr IV.SIG Q12H MATHEW Last Admin: 12/18/17 16:18 Dose: 250 mls/hr Lorazepam (Ativan Inj) 0.5 mg IV.PUSH Q6H PRN PRN Reason: ANXIETY Last Admin: 12/18/17 05:17 Dose: 0.5 mg Magnesium Oxide (Mag-Ox) 800 mg PO UNSCH PRN PRN Reason: For Magnesium 1.2 - 1.6 mg/dL Metoprolol Tartrate (Lopressor) 25 mg PO BID [facility] Last Admin: 12/18/17 08:14 Dose: 25 mg Miscellaneous Information ([facility] Ordered Lab Info) 0 each OTHER ONCE ONE Stop: 12/20/17 04:46 Morphine Sulfate (Msir) 15 mg PO Q4H PRN PRN Reason: Pain 1-10 Morphine Sulfate (Morphine Inj) 2 mg IV.PUSH Q4H PRN PRN Reason: SEE LABEL COMMENTS Last Admin: 12/18/17 16:48 Dose: 2 mg Ondansetron HCl (Zofran Inj) 4 mg IV.PUSH Q6H PRN PRN Reason: NAUSEA Last Admin: 12/18/17 11:58 Dose: 4 mg Pantoprazole Sodium (Protonix Inj) 40 mg IV.PUSH Q12H [facility]HEW Last Admin: 12/18/17 17:33 Dose: 40 mg Pharmacy Profile Note (Vancomycin Consult Pharmacy) 1 each OTHER UNSCH PRN PRN Reason: Pharmacy to dose Polyethylene Glycol (Miralax) 17 gm PO DAILY [facility] Last Admin: 12/18/17 11:46 Dose: 17 gm Potassium Chloride (Klor-Con 10) 30 meq PO BID [facility] Last Admin: 12/18/17 14:57 Dose: 30 meq Promethazine HCl (Phenergan Inj) 12.5 mg IM Q6H PRN PRN Reason: vomiting refractory to po Last Admin: 12/17/17 06:38 Dose: 12.5 mg Promethazine HCl (Phenergan) 12.5 mg PO Q4H PRN PRN Reason: NAUSEA OR VOMITING Senna/Docusate Sodium (Oriana-Colace) 1 tab PO DAILY [facility] Last Admin: 12/18/17 09:05 Dose: 1 tab Sodium Chloride (Ns Flush) 2 ml IV.FLUSH BID [facility] Last Admin: 12/18/17 08:16 Dose: 2 ml Sodium Chloride (Ns Flush) 2 ml IV.FLUSH PRN PRN PRN Reason: FLUSH AFTER USING IV ACCESS Physical Exam Vital signs: Vital Signs 12/17/17 19:00 12/17/17 23:00 12/18/17 03:00 Temperature 98 F 98.7 F 97.8 F Pulse Rate 75 72 57 L Respiratory Rate 14 14 14 Blood Pressure 130/69 116/67 131/76 Pulse Oximetry 96 95 95 12/18/17 05:15 12/18/17 07:00 12/18/17 10:16 Temperature 98.2 F Pulse Rate 72 Respiratory Rate 16 16 16 Blood Pressure 136/70 Pulse Oximetry 95 12/18/17 11:00 12/18/17 15:00 12/18/17 17:33 Temperature 99.5 F 98.3 F Pulse Rate 77 77 Respiratory Rate 17 16 15 Blood Pressure 130/74 121/65 Pulse Oximetry 98 98 Intake & Output 12/17/17 12/18/17 12/18/17 18:59 06:59 18:59 Intake Total 1967.5 / 1967.5 1437.5 / 1437.5 1080 / 1080 Output Total 1200 / 1200 2400 / 2400 1300 / 1300 Balance 767.5 / 767.5 -962.5 / -962.5 -220 / -220 Weight 90.9 kg Intake: IV 1017.5 / 1017.5 717.5 / 717.5 600 / 600 Brevibloc 2,500 mg/NS 250 mL 300 / 300 Premix 2,500 mg In 250 ml @ 50 MCG/KG/MIN 26.82 mls/hr IV.CONT TITRATE PRN Rx#:[id number] Maxipime Inj 2,000 MG In NS Inj 200 / 200 200 / 200 100 / 100 100 ML @ 200 mls/hr IV.SIG Q8H MATHEW Rx#:[id number] Vancomycin Inj 1,750 MG In NS 517.5 / 517.5 517.5 / 517.5 500 / 500 Inj 500 ML @ 250 mls/hr IV.SIG Q12H MATHEW Rx#:[id number] Oral 950 / 950 720 / 720 480 / 480 Output: Urine 1200 / 1200 2400 / 2400 1300 / 1300 Emesis 0 / 0 Other: # Bowel Movements 0 0 - Constitutional no acute distress - Routine HEENT Exam Head: Present: atraumatic Eye: Present: normal accommodation ENT: Present: mucous membranes moist - Routine Neck Exam Present: supple - Routine Respiratory Exam Present: CTA bilaterally - Routine Cardiovascular Exam Present: RRR - Routine Abdominal Exam Present: soft - Routine Skin Exam Present: ecchymosis - Routine Neurological Exam Present: alert, oriented X3 - Detailed Neurological Exam: Coma Scale Eye Opening: Spontaneous Verbal Response: Oriented Motor Response: Obey commands [place] Coma Scale Total: 15 - Routine Psychiatric Exam Present: normal affect Results 12/18/17 03:17 12/19/17 03:58 CBC 12/17/17 12/18/17 Range/Units 04:58 03:17 WBC 6.8 6.4 (4.0-11.0) th/mm3 RBC 4.43 4.26 (4.00-5.30) mil/mm3 Hgb 13.2 12.7 (11.6-15.3) gm/dL Hct 38.5 36.9 (35.0-46.0) % Plt Count 341 286 (150-450) th/mm3 Comprehensive Metabolic Panel 12/16/17 12/17/17 12/18/17 Range/Units 20:11 04:58 03:17 Sodium 135 L 138 (136-145) meq/L Potassium 3.5 3.6 3.1 L (3.5-5.1) meq/L Chloride 103 104 (98-107) meq/L Carbon Dioxide 21.8 24.6 (21.0-32.0) meq/L BUN 8 7 (7-18) mg/dL Creatinine 0.72 0.57 (0.50-1.00) mg/dL Calcium 8.2 L 8.1 L (8.5-10.1) mg/dL Intake and Output 12/18/17 12/18/17 12/18/17 06:59 14:59 22:59 Intake Total 920 / 920 500 / 500 580 / 580 Output Total 2400 / 2400 1300 / 1300 Balance -1480 / -1480 500 / 500 -720 / -720 Intake: IV 200 / 200 500 / 500 100 / 100 Maxipime Inj 2,000 MG In NS Inj 200 / 200 100 / 100 100 ML @ 200 mls/hr IV.SIG Q8H MATHEW Rx#:[id number] Vancomycin Inj 1,750 MG In NS 500 / 500 Inj 500 ML @ 250 mls/hr IV.SIG Q12H MATHEW Rx#:[id number] Oral 720 / 720 480 / 480 Output: Urine 2400 / 2400 1300 / 1300 Emesis 0 / 0 Other: # Bowel Movements 0 Weight 90.9 kg - Imaging and Cardiology Imaging: Impressions Abdomen X-Ray 12/17/17 00:00 CONCLUSION: Gaseous dilatation of the transverse colon. There are no findings to indicate bowel obstruction. The mildly dilated colon could represent a mild ileus. Abdomen X-Ray 12/18/17 00:00 CONCLUSION: Resolution of the previously seen colonic ileus Assessment and Plan - Plan Assessment Nausea and vomiting Ventricular tachycardia Hypokalemia Plan K+ 3.1 today. Continue to monitor and replace per protocol. Keep potassium 4.0 or greater. Mg++ 1.8. T wave inversion on telemetry. If she does not tolerate PO K+, will place PICC line for IV K+ replacement. S/P cardiac catheterization, no evidence of acute coronary stenosis. Echo shows, preserved left ventricular function 55-60%. Esmolol drip was discontinued yesterday. Tolerating PO Metoprolol. GI evaluation showed esophagitis, erosive gastritis. No nausea today. No bowel movement in over 7 days, Abdominal ultrasound today did not show ileus. Diet as tolerated. Continue with current cardiac treatment plan and adjust as needed. Patient seen and evaluated by Dr. Vaughan who participated in care and management. The exam, history, and the medical decision-making described in the above note were completed with the assistance of the mid-level provider. I reviewed and agree with the findings presented. I attest that I had a [id number] encounter with the patient on the same day, and personally performed and documented my assessment and findings in the medical record. try to keep K up discussed with pt and daughter. Code Status: Full Code Discussed Condition With: Nurse
[2017-12-18] MEDS: Morphine Sulfate 15 MG IR Tablet PO PRN (20:50)
[2017-12-19 04:50] LABS: Calcium 8.9 mg/dL (8.5-10.1); Carbon Dioxide 24.4 meq/L (21.0-32.0); Magnesium 1.6 mg/dL (1.5-2.5); Potassium 3.5 meq/L (3.5-5.1)
[2017-12-19] MEDS: Pantoprazole Inj 40 MG Vial IV.PUSH SCH (05:11)
[2017-12-19] MEDS: Acetaminophen 325 MG Tablet PO PRN (05:11)
[2017-12-19] MEDS: Morphine Sulfate 15 MG IR Tablet PO PRN ×4 (05:12→20:50)
[2017-12-19] MEDS: Vancomycin Inj 1,500 MG in Sodium Chlor 0.9% Inj 500 ML IV.SIG SCH (05:12)
[2017-12-19] MEDS: Bisacodyl 10 MG Supp RECTAL SCH (08:04)
[2017-12-19] MEDS: Polyethylene Glycol 3350 17 GM Packet PO SCH (08:05)
[2017-12-19] MEDS: Senna/Docusate Sodium 8.6/50 MG Tablet PO SCH (08:05)
[2017-12-19] MEDS: Enoxaparin Inj 30 MG/0.3 ML Syringe SQ SCH (08:06)
[2017-12-19] MEDS: Metoprolol Tartrate 25 MG Tablet PO SCH ×2 (08:06→20:50)
[2017-12-19] MEDS: Collagenase Oint 30 GM Tube TOPICAL SCH (08:10)
--- NOTE | 2017-12-19 13:28 | P.PNID ---
Subjective Remarks: Patient is a 57-year-old female, presented to the hospital with 2-3 day history of nausea and vomiting. She is also had decrease appetite due to the vomiting. On the day of admission she had chest pain so she was brought into the hospital for further evaluation and treatment. Cardiac workup currently did not reveal any FL. Patient had cardiac cath and it was okay. GI had evaluated the patient, and upper endoscopy showed evidence of some esophagitis and gastritis. Patient still having nausea and vomiting. She denies any significant abdominal pain. She has not had any fever chills or sweats. She has not had any prior problem with nausea and vomiting. Patient was found to have a left leg wound, and he had some green drainage. Infectious disease consultation has been requested to evaluate the left leg wound. Patient apparently had a fall about a week ago and sustained some abrasions on her left leg. She has been doing her own wound care, she keeps the wound open to air during the day, and at night she puts Neosporin and she covers the wound. She has not really noted any significant pain or redness in her left leg or left thigh. Here in the hospital she is afebrile. Her WBC is normal. Notes reviewed No further fever V/V much improved C/O constipation All C/S negative Abx D/C today Antibiotics: None Lines: PIV Past Medical History: Barretts esophagus Chiari malformation Hx of hysterectomy Hx of neck surgery Hx of rotator cuff surgery Allergies/Adverse Reactions: Allergies latex Allergy (Severe, Verified 12/12/17 10:31) Swelling Objective Vital Signs 12/18/17 15:00 12/18/17 17:33 12/18/17 19:00 Temperature 98.3 F 98.8 F Pulse Rate 77 89 Respiratory Rate 16 15 22 Blood Pressure 121/65 124/76 Pulse Oximetry 98 97 12/18/17 23:00 12/19/17 03:00 12/19/17 07:00 Temperature 98.4 F 98.5 F 98.5 F Pulse Rate 71 76 77 Respiratory Rate 22 22 16 Blood Pressure 112/56 L 113/57 L 103/70 Pulse Oximetry 98 97 97 12/19/17 11:00 Temperature 98.2 F Pulse Rate 67 Respiratory Rate 16 Blood Pressure 101/72 Pulse Oximetry 97 Intake & Output 12/18/17 12/19/17 12/19/17 18:59 06:59 18:59 Intake Total 1080 / 1080 1335 / 1335 600 / 600 Output Total 1300 / 1300 1999 Balance -220 / -220 -665 / -665 600 / 600 Weight 90 kg Intake: IV 600 / 600 615 / 615 600 / 600 Maxipime Inj 2,000 MG In NS Inj 100 / 100 100 / 100 100 / 100 100 ML @ 200 mls/hr IV.SIG Q8H MATHEW Rx#:[id number] Vancomycin Inj 1,500 MG In NS 500 / 500 515 / 515 500 / 500 Inj 500 ML @ 250 mls/hr IV.SIG Q12H MATHEW Rx#:[id number] Oral 480 / 480 720 / 720 Output: Urine 1300 / 1300 199912/13/17 08:41 Blood - Peripheral Aerobic Blood Culture - Final No growth in 5 days 12/13/17 08:41 Blood - Peripheral Anaerobic Blood Culture - Final No growth in 5 days 12/13/17 08:23 Blood - Peripheral Aerobic Blood Culture - Final No growth in 5 days 12/13/17 08:23 Blood - Peripheral Anaerobic Blood Culture - Final No growth in 5 days 12/13/17 08:28 Blood - Peripheral Aerobic Blood Culture - Final No growth in 5 days 12/13/17 08:28 Blood - Peripheral Anaerobic Blood Culture - Final No growth in 5 days 12/15/17 22:48 Clean Catch Urine Urine Culture - Final No growth in 48 hours 12/14/17 16:10 Lumbar Puncture Gram Stain - Final 12/14/17 16:10 Lumbar Puncture CSF Culture - Final No growth in 72 hours Lab - Hematology Results 12/18/17 03:17 WBC 6.4 RBC 4.26 Hgb 12.7 Hct 36.9 MCV 86.7 MCH 29.9 MCHC 34.5 RDW 12.9 Plt Count 286 MPV 7.9 Lab - Chemistry Results 12/18/17 12/19/17 03:17 03:58 Sodium 138 138 Potassium 3.1 L 3.5 Chloride 104 103 Carbon Dioxide 24.6 24.4 Anion Gap 9 11 BUN 7 5 L Creatinine 0.57 0.70 Estimated GFR Greater than 89 87 L Random Glucose 85 108 H Calcium 8.1 L 8.9 D Magnesium 1.8 1.6 Imaging: ITS Impressions Pulmonary Perfusion Imaging 12/12/17 20:24 CONCLUSION: 1. Low probability pulmonary embolism. Bile Acid Absorption NM 12/14/17 00:00 CONCLUSION: 1. Negative examination. No evidence for cystic duct or biliary ductal obstruction. Lumbar Puncture Fluoroscopy 12/14/17 00:00 CONCLUSION: 1. Uncomplicated fluoroscopically guided lumbar puncture. Head MRI 12/14/17 13:20 CONCLUSION: 1. No acute intracranial abnormality identified. 2. No abnormal enhancement identified. Chest X-Ray 12/14/17 19:23 CONCLUSION: The lungs are clear. Abdomen X-Ray 12/18/17 00:00 CONCLUSION: Resolution of the previously seen colonic ileus Physical Exam: GENERAL: Alert and oriented, no acute distress. HEENT: Pupils reactive to light. Extraocular movements intact. No icterus. No conjunctival erythema. Oropharyngeal mucosa moist. NECK: Supple without adenopathy. No swelling. LUNGS: Decreased clear breath sounds. HEART: Regular S1 and S2. ABDOMEN: Bowel sounds present, soft, no tenderness appreciated. EXTREMITIES: No clubbing or cyanosis or edema. Wound L leg healing well and dry SKIN: No rash. NEUROLOGIC: No gross focal finding. PSYCH: Cooperative. Assessment and Plan - Plan Impression Superficial wound L leg, looks like an abrasion, no surrounding cellulitis Nausea and vomiting - has esophagitis and gastritis on EGD Normal cardiac cath NSVtach felt to be likely due to low K Fevers, no obvious source for bacterial infection, ?viral causing her GI symptoms Recommendation Clinically doing well from ID standpoint No bacterial infection found Abx have been D/C If stable ok for D/C next day or 2 Explained plan to patient and daughter
--- NOTE | 2017-12-19 14:08 | P.PNIM ---
Subjective Interval history: Patient is feeling better today, she questions whether she still needs antibiotics. She is eager to go home, but understands her electrolytes are still returning unbalanced with a.m. labs. Still requiring electrolyte replacement. Physical Exam Vital signs: Vital Signs 12/18/17 15:00 12/18/17 17:33 12/18/17 19:00 Temperature 98.3 F 98.8 F Pulse Rate 77 89 Respiratory Rate 16 15 22 Blood Pressure 121/65 124/76 Pulse Oximetry 98 97 12/18/17 23:00 12/19/17 03:00 12/19/17 07:00 Temperature 98.4 F 98.5 F 98.5 F Pulse Rate 71 76 77 Respiratory Rate 22 22 16 Blood Pressure 112/56 L 113/57 L 103/70 Pulse Oximetry 98 97 97 12/19/17 11:00 Temperature 98.2 F Pulse Rate 67 Respiratory Rate 16 Blood Pressure 101/72 Pulse Oximetry 97 Intake & Output 12/18/17 12/19/17 12/19/17 18:59 06:59 18:59 Intake Total 1080 / 1080 1335 / 1335 600 / 600 Output Total 1300 / 1300 1999 / 1999 Balance -220 / -220 -665 / -665 600 / 600 Weight 90 kg Intake: IV 600 / 600 615 / 615 600 / 600 Maxipime Inj 2,000 MG In NS Inj 100 / 100 100 / 100 100 / 100 100 ML @ 200 mls/hr IV.SIG Q8H MATHEW Rx#:[id number] Vancomycin Inj 1,500 MG In NS 500 / 500 515 / 515 500 / 500 Inj 500 ML @ 250 mls/hr IV.SIG Q12H MATHEW Rx#:[id number] Oral 480 / 480 720 / 720 Output: Urine 1300 / 1300 1999 Narrative: GENERAL: AAOx3, no acute distress, improved energy SKIN: Warm and dry. No rashes HEAD: Atruamtic, normocephalic. EYES: No scleral icterus. No injection or drainage. ENT: Moist mucous membranes, patent nares, no erythema of oropharynx. NECK: Supple, trachea midline. No JVD or lymphadenopathy. Normal thyroid. CARDIOVASCULAR: Regular rate and rhythm. No murmurs, gallops, or rubs. RESPIRATORY: Breath sounds clear equal bilaterally. No crackles or wheezes. No accessory muscle use. GASTROINTESTINAL: Abdomen soft, non-tender, nondistended, hypoactive bowel sounds MUSCULOSKELETAL: No cyanosis, or edema. NEURO: CN II-XII grossly intact, no focal deficits, no slurring of speech Results - Labs CBC & Chem 7: 12/18/17 03:17 12/19/17 03:58 Laboratory Results - last 24 hr 12/19/17 03:58 Sodium 138 Potassium 3.5 Chloride 103 Carbon Dioxide 24.4 Anion Gap 11 BUN 5 L Creatinine 0.70 Estimated GFR 87 L Random Glucose 108 H Calcium 8.9 D Magnesium 1.6 Microbiology 12/13/17 08:41 Blood - Peripheral Aerobic Blood Culture - Final No growth in 5 days 12/13/17 08:41 Blood - Peripheral Anaerobic Blood Culture - Final No growth in 5 days 12/13/17 08:23 Blood - Peripheral Aerobic Blood Culture - Final No growth in 5 days 12/13/17 08:23 Blood - Peripheral Anaerobic Blood Culture - Final No growth in 5 days 12/13/17 08:28 Blood - Peripheral Aerobic Blood Culture - Final No growth in 5 days 12/13/17 08:28 Blood - Peripheral Anaerobic Blood Culture - Final No growth in 5 days - Imaging Impressions Abdomen X-Ray 12/18/17 00:00 CONCLUSION: Resolution of the previously seen colonic ileus Assessment and Plan - Plan 57-year-old white female admitted for nausea vomiting chest pain. Recurring fevers, nausea, vomiting Etiology is unclear, onset was following a trip to [place] with meals ingested, initial symptoms were only GI Consider food poisoning, patient responded to vancomycin and cefepime which was cross coverage for risk of meningitis Vancomycin and cefepime discontinued at this point Appreciate infectious disease consult Abdominal bloating KUB showed no evidence of bowel obstruction Patient is tolerating regular diet without any worsening Hypokalemia, hypomagnesemia Still requiring oral supplementation of potassium Recheck with a.m. labs tomorrow Ventricular tachycardia Patient was given magnesium infusion initially, then controlled with esmolol drip, now converting to p.o. metoprolol Echocardiogram shows ejection fraction within normal limits, 55-60% No recurrence in the last 48 hours Appreciate cardiology consult Chest pain Likely secondary to intractable vomiting, now resolved EGD shows mild gastritis. HIDA scan is unremarkable. Leg wound Clean dressing of her leg wound, superficial wound by history DVT Prophylaxis Lovenox Disposition Patient may be discharged home when electrolytes are stable
[2017-12-19] MEDS: LORazepam 0.5 MG Tablet PO PRN (21:01)
[2017-12-20] MEDS: Acetaminophen 325 MG Tablet PO PRN ×2 (00:04→11:38)
[2017-12-20] MEDS: Morphine Sulfate 15 MG IR Tablet PO PRN ×5 (01:15→21:48)
[2017-12-20] MEDS ORDERED: Pharmacy Ordered Lab Info OTHER ONE (04:45)
[2017-12-20 05:33] LABS: Hematocrit 34.6 % (35.0-46.0); Hemoglobin 11.9 gm/dL (11.6-15.3); Mean Corpuscular HGB Conc 34.5 % (32.0-36.0); Mean Platelet Volume 7.8 fL (7.0-11.0); Platelet Count 322 th/mm3 (150-450); Red Blood Count 3.98 mil/mm3 (4.00-5.30); Red Cell Distribution Width 13.2 % (11.6-17.2); White Blood Count 6.5 th/mm3 (4.0-11.0)
[2017-12-20 05:48] LABS: Anion Gap 9 meq/L (5-15); Blood Urea Nitrogen 6 mg/dL (7-18); Calcium 8.2 mg/dL (8.5-10.1); Carbon Dioxide 26.1 meq/L (21.0-32.0); Chloride 104 meq/L (98-107); Glomerular Filtration Rate Greater Than 89 mL/min (>89); Glucose,Random 84 mg/dL (74-106); Magnesium 1.8 mg/dL (1.5-2.5); Potassium 4.1 meq/L (3.5-5.1); Sodium 139 meq/L (136-145)
[2017-12-20] MEDS: Polyethylene Glycol 3350 17 GM Packet PO SCH (08:00)
[2017-12-20] MEDS: Metoprolol Tartrate 25 MG Tablet PO SCH ×2 (08:00→21:47)
[2017-12-20] MEDS: Enoxaparin Inj 30 MG/0.3 ML Syringe SQ SCH (08:00)
[2017-12-20] MEDS: Bisacodyl 10 MG Supp RECTAL SCH (08:00)
[2017-12-20] MEDS: Collagenase Oint 30 GM Tube TOPICAL SCH (08:01)
[2017-12-20] MEDS: Senna/Docusate Sodium 8.6/50 MG Tablet PO SCH (08:01)
--- NOTE | 2017-12-20 09:50 | P.PNCA ---
Subjective Interval history: 57-year-old female who originally presented last week Monday with complaints of uncontrolled nausea chest tightness, and numbness in her legs. Troponin came back elevated at 0.41, patient's chest pain was relieved by 2 nitro, she was transferred to [facility] where she underwent left heart catheterization with Dr. Vaughan. Heart catheterization was normal. Vomiting continued, GI was consulted. Patient began to spike fever first night she was in the hospital of 101.9. GI completed an upper endoscopy which showed gastritis and esophagitis, a HIDA scan was also completed that was normal. 2 nights later fever went up to 102.4. Patient underwent lumbar puncture to rule out meningitis and was started on prophylactic antibiotics. On Monday, December 17 patient had a long run of ventricular tachycardia lasting greater than 60 beats, she became symptomatic with episode very diaphoretic and pale. She was transferred to intensive care and started on an esmolol drip. Magnesium and potassium have needed to be replaced several times throughout this admission probably secondary to uncontrollable nausea and vomiting. Esmolol drip was discontinued on Monday, patient did have 2 more short runs of V. tach on Monday. On exam today she reports feeling much better she has had no more fevers or vomiting the past 48 hours. She has not had a bowel movement in 9 days and is currently trying several different bowel regimens to help. She did develop a new rash on her back yesterday. She reports she is ready to go home Medications and Allergies Allergies Allergy/AdvReac Type Severity Reaction Status Date / Time latex Allergy Severe Swelling Verified 12/12/17 10:31 Home Medications Medication Instructions Recorded Confirmed Type estradiol 2 mg PO DAILY 12/12/17 12/19/17 History morphine 15 mg PO TID PRN 12/12/17 12/19/17 History oxycodone 10 mg PO BID PRN 12/12/17 12/19/17 History pantoprazole [Protonix] 40 mg PO DAILY 12/12/17 12/19/17 History Active Medications: Active Medications Acetaminophen (Tylenol) 650 mg PO Q4H PRN PRN Reason: FEVER Last Admin: 12/20/17 00:04 Dose: 650 mg Amlodipine Besylate (Norvasc) 5 mg PO DAILY PRN PRN Reason: HYPERTENSION Bisacodyl (Dulcolax Supp) 10 mg RECTAL DAILY MATHEW Last Admin: 12/20/17 08:00 Dose: 10 mg Collagenase (Santyl Oint) 1 applicatio TOPICAL DAILY [facility] Last Admin: 12/20/17 08:01 Dose: 1 applicatio Enalaprilat (Vasotec Inj) 1.25 mg IV.PUSH Q8H PRN PRN Reason: HYPERTENSION Last Admin: 12/14/17 05:25 Dose: 1.25 mg Enoxaparin Sodium (Lovenox Inj) 30 mg SQ DAILY [facility] Last Admin: 12/20/17 08:00 Dose: 30 mg Hydralazine HCl (Apresoline Inj) 10 mg IV.PUSH Q8H PRN PRN Reason: SBP > 150 or DBP > 90 Last Admin: 12/16/17 21:09 Dose: 10 mg Potassium Chloride/Sodium Chloride (Potassium Chlor 20 Meq/Nacl 0.45% Inj) 1, 000 mls @ 42 mls/hr IV.CONT .[id number] [facility] Last Infusion: 12/20/17 07:35 Dose: Infused Magnesium Sulfate 4 gm/ Sodium (Chloride) 100 mls @ 50 mls/hr IV.SIG UNSCH PRN PRN Reason: For Magnesium 0.9 - 1.1 mg/dL Magnesium Sulfate 2 gm/ Sodium (Chloride) 100 mls @ 50 mls/hr IV.SIG UNSCH PRN PRN Reason: For Magnesium 1.2 - 1.6 mg/dL Sodium Phosphate 30 mmol/ (Sodium Chloride) 260 mls @ 42 mls/hr IV.SIG UNSCH PRN PRN Reason: For Phosphorus < 2.5 mg/dL Lorazepam (Ativan) 0.5 mg PO Q6H PRN PRN Reason: ANXIETY Last Admin: 12/19/17 21:01 Dose: 0.5 mg Magnesium Oxide (Mag-Ox) 800 mg PO UNSCH PRN PRN Reason: For Magnesium 1.2 - 1.6 mg/dL Last Admin: 12/19/17 05:11 Dose: 800 mg Metoprolol Tartrate (Lopressor) 25 mg PO BID [facility] Last Admin: 12/20/17 08:00 Dose: 25 mg Morphine Sulfate (Msir) 15 mg PO Q4H PRN PRN Reason: Pain 1-10 Last Admin: 12/20/17 09:15 Dose: 15 mg Morphine Sulfate (Morphine Inj) 2 mg IV.PUSH Q4H PRN PRN Reason: SEE LABEL COMMENTS Last Admin: 12/18/17 16:48 Dose: 2 mg Ondansetron HCl (Zofran Inj) 4 mg IV.PUSH Q6H PRN PRN Reason: NAUSEA Last Admin: 12/19/17 05:28 Dose: 4 mg Pantoprazole Sodium (Protonix) 40 mg PO DAILY [facility] Last Admin: 12/20/17 08:01 Dose: 40 mg Polyethylene Glycol (Miralax) 17 gm PO DAILY [facility] Last Admin: 12/20/17 08:00 Dose: 17 gm Potassium Chloride (Klor-Con 10) 30 meq PO TID [facility] Promethazine HCl (Phenergan) 12.5 mg PO Q4H PRN PRN Reason: NAUSEA OR VOMITING Senna/Docusate Sodium (Oriana-Colace) 1 tab PO DAILY [facility] Last Admin: 12/20/17 08:01 Dose: 1 tab Sodium Chloride (Ns Flush) 2 ml IV.FLUSH BID [facility] Last Admin: 12/20/17 08:01 Dose: 2 ml Sodium Chloride (Ns Flush) 2 ml IV.FLUSH PRN PRN PRN Reason: FLUSH AFTER USING IV ACCESS Physical Exam Vital signs: Vital Signs 12/19/17 11:00 12/19/17 15:00 12/19/17 15:44 Temperature 98.2 F Pulse Rate 67 85 88 Respiratory Rate 16 16 20 Blood Pressure 101/72 122/60 128/76 Pulse Oximetry 97 97 98 12/19/17 15:46 12/19/17 17:00 12/19/17 19:00 Temperature 98.4 F Pulse Rate 91 H 86 84 Respiratory Rate 20 Blood Pressure 121/76 Pulse Oximetry 100 12/19/17 20:00 12/19/17 21:00 12/19/17 22:00 Temperature Pulse Rate 90 87 88 Respiratory Rate Blood Pressure Pulse Oximetry 12/19/17 23:00 12/20/17 00:00 12/20/17 01:00 Temperature 98.5 F Pulse Rate 73 76 77 Respiratory Rate 18 Blood Pressure 112/53 L Pulse Oximetry 98 12/20/17 01:58 12/20/17 03:00 12/20/17 03:28 Temperature 98.2 F Pulse Rate 77 67 70 Respiratory Rate 20 Blood Pressure 113/67 Pulse Oximetry 98 12/20/17 05:00 12/20/17 06:00 12/20/17 07:00 Temperature Pulse Rate 66 78 62 Respiratory Rate Blood Pressure Pulse Oximetry Intake & Output 12/19/17 12/20/17 12/20/17 18:59 06:59 18:59 Intake Total 840 / 840 720 / 720 1000 / 1000 Output Total 2350 / 2350 1600 / 1600 Balance -1510 / -1510 -880 / -880 1000 / 1000 Weight 90 kg Intake: IV 600 / 600 1000 / 1000 Potassium Chlor 20 mEq/NACL 0. 1000 / 1000 45% Inj 1,000 ML @ 42 mls/hr IV .CONT .[id number] MATHEW Rx#:[id number] Maxipime Inj 2,000 MG In NS Inj 100 / 100 100 ML @ 200 mls/hr IV.SIG Q8H [facility] Rx#:[id number] Vancomycin Inj 1,500 MG In NS 500 / 500 Inj 500 ML @ 250 mls/hr IV.SIG Q12H [facility] Rx#:[id number] Oral 240 / 240 720 / 720 Output: Urine 2350 / 2350 1600 / 1600 Other: Date of Last Bowel Movement 01/09/18 Results 12/20/17 04:47 12/21/17 05:26 CBC 12/20/17 Range/Units 04:47 WBC 6.5 (4.0-11.0) th/mm3 RBC 3.98 L (4.00-5.30) mil/mm3 Hgb 11.9 (11.6-15.3) gm/dL Hct 34.6 L (35.0-46.0) % Plt Count 322 (150-450) th/mm3 Comprehensive Metabolic Panel 12/19/17 12/20/17 Range/Units 03:58 04:47 Sodium 138 139 (136-145) meq/L Potassium 3.5 4.1 (3.5-5.1) meq/L Chloride 103 104 (98-107) meq/L Carbon Dioxide 24.4 26.1 (21.0-32.0) meq/L BUN 5 L 6 L (7-18) mg/dL Creatinine 0.70 0.57 (0.50-1.00) mg/dL Calcium 8.9 D 8.2 L (8.5-10.1) mg/dL Intake and Output 12/19/17 12/20/1718 22:59 06:59 14:59 Intake Total 240 / 240 720 / 720 1000 / 1000 Output Total 2350 / 2350 1600 / 1600 Balance -2110 / -2110 -880 / -880 1000 / 1000 Intake: IV 1000 / 1000 Potassium Chlor 20 mEq/NACL 0. 1000 / 1000 45% Inj 1,000 ML @ 42 mls/hr IV .CONT .[id number] [facility] Rx#:[id number] Oral 240 / 240 720 / 720 Output: Urine 2350 / 2350 1600 / 1600 Other: Date of Last Bowel Movement 01/09/18 01/09/18 Weight 90 kg - Imaging and Cardiology Imaging: Impressions Abdomen X-Ray 12/18/17 00:00 CONCLUSION: Resolution of the previously seen colonic ileus Assessment and Plan - Plan Assessment Nausea and vomiting Ventricular tachycardia-greater than 60 beats Hypokalemia Hypomagnesemia Hypothyroisidsm Polydipsia Plan K+ 4.1 this AM. [facility] home on Potassium Chloride 30 meq BID, and plan to monitor electrolytes closely outpatient. Will plan to place a 30 days MCOT once discharged to monitor for any further episodes of Vtach. Will continue on metoprolol 25mg BID. S/P cardiac catheterization, no evidence of acute coronary stenosis. Echo shows, preserved left ventricular function 55-60%. Esmolol drip was discontinued Monday. 2 short runs of Vtach on Monday. Continues on metoprolol. GI evaluation showed esophagitis, erosive gastritis. No nausea today. No bowel movement in over 9 days, Abdominal ultrasound did not show ileus. Diet as tolerated. She will need to follow up with acrobatic dancer after discharge in reference to abnormal T4 and TSH. Hgb A1c ordered. Will place 30 day MCOT once discharged. [place] home on potassium chloride 30meq BID and Metoprolol 25mg BID Patient seen and evaluated by Dr. Vaughan who participated in care and management. The exam, history, and the medical decision-making described in the above note were completed with the assistance of the mid-level provider. I reviewed and agree with the findings presented. I attest that I had a [id number] encounter with the patient on the same day, and personally performed and documented my assessment and findings in the medical record. Overall much better with electrolyte replacement The exam, history, and the medical decision-making described in the above note were completed with the assistance of the mid-level provider. I reviewed and agree with the findings presented. I attest that I had a [id number] encounter with the patient on the same day, and personally performed and documented my assessment and findings in the medical record. Overall doing better, will do MCOT to evaluate for VTac
[2017-12-20] MEDS: Magnesium Oxide 400 MG Tablet PO SCH (11:37)
--- NOTE | 2017-12-20 14:20 | P.PNIM ---
Subjective Interval history: The patient says that she is finally eating normally. She is passing gas but still has not had a bowel movement. She denies any palpitations. Discussed with the patient's family. Physical Exam Vital signs: Vital Signs 12/19/17 15:00 12/19/17 15:44 12/19/17 15:46 Temperature Pulse Rate 85 88 91 H Respiratory Rate 16 20 Blood Pressure 122/60 128/76 Pulse Oximetry 97 98 12/19/17 17:00 12/19/17 19:00 12/19/17 20:00 Temperature 98.4 F Pulse Rate 86 84 90 Respiratory Rate 20 Blood Pressure 121/76 Pulse Oximetry 100 12/19/17 21:00 12/19/17 22:00 12/19/17 23:00 Temperature 98.5 F Pulse Rate 87 88 73 Respiratory Rate 18 Blood Pressure 112/53 L Pulse Oximetry 98 12/20/17 00:00 12/20/17 01:00 12/20/17 01:58 Temperature Pulse Rate 76 77 77 Respiratory Rate Blood Pressure Pulse Oximetry 12/20/17 03:00 12/20/17 03:28 12/20/17 05:00 Temperature 98.2 F Pulse Rate 67 70 66 Respiratory Rate 20 Blood Pressure 113/67 Pulse Oximetry 98 12/20/17 06:00 12/20/17 07:00 12/20/17 08:00 Temperature 97.8 F Pulse Rate 78 62 74 Respiratory Rate 16 Blood Pressure 120/87 Pulse Oximetry 96 12/20/17 09:00 12/20/17 10:00 12/20/17 10:11 Temperature Pulse Rate 68 70 72 Respiratory Rate Blood Pressure Pulse Oximetry 12/20/17 12:00 12/20/17 12:33 Temperature 98.0 F Pulse Rate 75 70 Respiratory Rate 16 Blood Pressure 111/79 Pulse Oximetry 97 Intake & Output 12/19/17 12/20/17 12/20/17 18:59 06:59 18:59 Intake Total 840 / 840 720 / 720 1000 / 1000 Output Total 2350 / 2350 1600 / 1600 Balance -1510 / -1510 -880 / -880 1000 / 1000 Weight 90 kg Intake: IV 600 / 600 1000 / 1000 Potassium Chlor 20 mEq/NACL 0. 1000 / 1000 45% Inj 1,000 ML @ 42 mls/hr IV .CONT .[id number] [facility] Rx#:[id number] Maxipime Inj 2,000 MG In NS Inj 100 / 100 100 ML @ 200 mls/hr IV.SIG Q8H [facility] Rx#:[id number] Vancomycin Inj 1,500 MG In NS 500 / 500 Inj 500 ML @ 250 mls/hr IV.SIG Q12H [facility] Rx#:[id number] Oral 240 / 240 720 / 720 Output: Urine 2350 / 2350 1600 / 1600 Other: Date of Last Bowel Movement 01/09/18 01/09/18 Narrative: GENERAL: No acute distress. NECK: Supple, trachea midline. No JVD or lymphadenopathy. Normal thyroid. CARDIOVASCULAR: Regular rate and rhythm. No murmurs, gallops, or rubs. RESPIRATORY: Breath sounds clear equal bilaterally. No crackles or wheezes. No accessory muscle use. GASTROINTESTINAL: Abdomen soft, non-tender, nondistended, + bowel sounds. MUSCULOSKELETAL: No cyanosis, or edema. NEURO: no focal deficits, no slurring of speech Results - Labs CBC & Chem 7: 12/20/17 04:47 12/20/17 04:47 Laboratory Results - last 24 hr 12/14/17 12/20/17 12/20/17 16:10 04:47 04:47 WBC 6.5 RBC 3.98 L Hgb 11.9 Hct 34.6 L MCV 87.0 MCH 30.0 MCHC 34.5 RDW 13.2 Plt Count 322 MPV 7.8 Sodium 139 Potassium 4.1 Chloride 104 Carbon Dioxide 26.1 Anion Gap 9 BUN 6 L Creatinine 0.57 Estimated GFR Greater than 89 Random Glucose 84 Calcium 8.2 L Magnesium 1.8 CSF VDRL Non-reactive Assessment and Plan - Plan Recurring fevers, nausea, vomiting Etiology is unclear, onset was following a trip to [place] with meals ingested, initial symptoms were only GI Consider food poisoning, patient responded to vancomycin and cefepime which was cross coverage for risk of meningitis Vancomycin and cefepime discontinued at this point Appreciate infectious disease consult Abdominal bloating/ Constipation KUB showed no evidence of bowel obstruction Patient is tolerating regular diet without any worsening -increase bowel regimen. Enema if needed. Hypokalemia, hypomagnesemia Still requiring oral supplementation of potassium Recheck with a.m. labs tomorrow Ventricular tachycardia Patient was given magnesium infusion initially, then controlled with esmolol drip, now converted to p.o. metoprolol Echocardiogram shows ejection fraction within normal limits, 55-60% Appreciate cardiology consult. Seems resolved. Chest pain Likely secondary to intractable vomiting, now resolved EGD shows mild gastritis. HIDA scan is unremarkable. Leg wound Clean dressing of her leg wound, superficial wound by history DVT Prophylaxis Lovenox Discussed Condition With: Anticipate d/c with C when pt has had a bowel movement
[2017-12-20] MEDS ORDERED: Polyethylene Glycol 3350 17 GM Packet PO ONE (14:45)
[2017-12-20 15:50] LABS: Hemoglobin A1c 5.2 % (4.3-6.0)
[2017-12-20 21:15] VITALS: RESP 18
[2017-12-20] MEDS: LORazepam 0.5 MG Tablet PO PRN (21:47)
[2017-12-21 04:36] VITALS: O2SAT 96
[2017-12-21] MEDS: Morphine Sulfate 15 MG IR Tablet PO PRN (06:23)
[2017-12-21 06:25] LABS: Anion Gap 9 meq/L (5-15); Blood Urea Nitrogen 7 mg/dL (7-18); Calcium 8.5 mg/dL (8.5-10.1); Carbon Dioxide 27.3 meq/L (21.0-32.0); Chloride 99 meq/L (98-107); Glomerular Filtration Rate Greater Than 89 mL/min (>89); Glucose,Random 93 mg/dL (74-106); Magnesium 2.1 mg/dL (1.5-2.5); Phosphorus 3.6 mg/dL (2.5-4.9); Potassium 4.3 meq/L (3.5-5.1); Sodium 135 meq/L (136-145)
[2017-12-21] MEDS: Bisacodyl 10 MG Supp RECTAL SCH (08:45)
[2017-12-21] MEDS: Enoxaparin Inj 30 MG/0.3 ML Syringe SQ SCH (08:46)
[2017-12-21] MEDS: Polyethylene Glycol 3350 17 GM Packet PO SCH (08:46)
[2017-12-21] MEDS: Magnesium Oxide 400 MG Tablet PO SCH (08:46)
[2017-12-21] MEDS: Metoprolol Tartrate 25 MG Tablet PO SCH (08:47)
[2017-12-21] MEDS: Senna/Docusate Sodium 8.6/50 MG Tablet PO SCH (08:47)
[2017-12-21] MEDS: Collagenase Oint 30 GM Tube TOPICAL SCH (08:48)
--- NOTE | 2017-12-21 09:21 | P.DS ---
Date of admission: 12/15/17 12:25 Primary care physician: UNKNOWN Anticipated date of discharge: 12/21/17 Brief History from admission: 57-year-old white female being admitted for chest pain. Patient was in her usual state of health until about 2-3 days ago in which he began to experience a decreased appetite with nausea and vomiting. Says her vomiting was essentially non-bloody. Symptoms persisted and progressed until today when after a handful of rounds of vomiting she began experiencing chest pain. That she decided to contact her daughter and proceed to the emergency department. Patient denies having any pleuritic chest pain. Denies having any diarrhea. Says she has not had a bowel movement for about for 5 days now. Typically she has a bowel movement every 2-3 days at least. Patient says she had been taking ibuprofen and alternating this with her pain medications ( morphine extended release and hydrocodone) for her chronic neck pains and shoulder pain. In the outside emergency department she had been evaluated and had a slightly elevated troponin bump of 0.4. EKG which and apparently reviewed shows no acute ST segment changes concerning for ischemia or infarction. She had a CT abdomen done which upon my independent review shows a fair amount of constipation but no other acute findings except for very mild colitis per radiology read. Chest x-ray read as negative. Patient was given IV fluids and clopidogrel. She was started on a heparin drip. Patient has already undergone cardiac catheterization with no occlusion noted. She continues to have multiple rounds of emesis and does not think she can hold down p.o. medications. Has already received IV Zofran and is still nauseated. Daughter states that the patient has a history of barrettes esophagus confirmed on EGD. Patient does take estradiol for hormone replacement therapy. Patient update on day of discharge: The patient had a bowel movement last night. She was feeling well and wanted to go home. She had no acute complaints. Discussed with her family. DS: Diagnosis - Discharge Diagnosis (1) Fever Status: Acute (2) Nonsustained ventricular tachycardia Status: Acute (3) Hypokalemia Status: Acute DS: Medications - Discharge Medications Prescriptions: amlodipine [Norvasc] 5 mg PO DAILY PRN #30 tab PRN Reason: Hypertension magnesium oxide 400 mg PO DAILY #30 tab metoprolol tartrate 25 mg PO BID #60 tab potassium chloride [Klor-Con 10] 20 meq PO BID #30 tab DS: Summary Hospital Course: Recurring fevers Infectious disease was consulted. Cultures were negative. Antibiotics were discontinued and the patient continued to do well. Abdominal bloating/ Constipation/ N/V/ Chest pain KUB showed no evidence of bowel obstruction. GI was consulted. EGD --> Class A esophagitis, biopsy. Erythematous gastritis in the gastric antrum, biopsy. Normal duodenal mucosa in the bulb and second portion of the duodenum. Biopsies from egd benign. HIDA scan --> No evidence for cystic duct or biliary ductal obstruction. The pt's bowel regimen was increased and she did have bowel movements prior to discharge. Her diet was advanced. Hypokalemia/ hypomagnesemia The pt required supplementation of potassium and magnesium. She will be discharged on PO KCl and magnesium oxide. She will have repeat labs on Monday and will follow up with her PCP. Ventricular tachycardia Patient was given magnesium infusion initially, then controlled with esmolol drip, now converted to p.o. metoprolol. The pt was transferred to the ICU temporarily. Electrolytes were monitored closely and repleted. Echocardiogram showed ejection fraction within normal limits, 55-60% Cardiology was consulted. The pt will follow up with cardiology as an outpt. - Time Spent with Patient Total time spent providing and/or coordinating discharge services: Greater than 30 minutes Exam Vital signs: Vital Signs 12/20/17 10:00 12/20/17 10:11 12/20/17 12:00 Temperature 98.0 F Pulse Rate 70 72 75 Respiratory Rate 16 Blood Pressure 111/79 Pulse Oximetry 97 12/20/17 12:33 12/20/17 14:00 12/20/17 15:00 Temperature Pulse Rate 70 70 76 Respiratory Rate Blood Pressure Pulse Oximetry 12/20/17 16:00 12/20/17 16:32 12/20/17 17:07 Temperature 97.7 F Pulse Rate 73 70 78 Respiratory Rate 16 Blood Pressure 123/68 Pulse Oximetry 98 12/20/17 19:00 12/20/17 20:00 12/20/17 21:00 Temperature 98.1 F Pulse Rate 80 80 86 Respiratory Rate 18 Blood Pressure 163/83 H Pulse Oximetry 97 12/20/17 22:00 12/20/17 23:00 12/21/17 00:00 Temperature 98.6 F Pulse Rate 88 74 75 Respiratory Rate 18 Blood Pressure 97/59 L Pulse Oximetry 98 12/21/17 01:00 12/21/17 04:00 12/21/17 05:00 Temperature 98.7 F Pulse Rate 71 60 76 Respiratory Rate 18 Blood Pressure 103/71 Pulse Oximetry 96 12/21/17 06:00 Temperature Pulse Rate 68 Respiratory Rate Blood Pressure Pulse Oximetry Intake & Output 12/20/17 12/21/17 12/21/17 18:59 06:59 18:59 Intake Total 2220 / 2220 360 / 360 Output Total 900 / 900 500 / 500 Balance 1320 / 1320 -140 / -140 Weight 89.5 kg Intake: IV 1000 / 1000 Potassium Chlor 20 mEq/NACL 0. 1000 / 1000 45% Inj 1,000 ML @ 42 mls/hr IV .CONT .[id number] [facility] Rx#:[id number] Oral 1220 / 1220 360 / 360 Output: Urine 900 / 900 500 / 500 Other: Date of Last Bowel Movement 01/09/18 12/20/17 Narrative: GENERAL: No acute distress. NECK: Supple, trachea midline. No JVD or lymphadenopathy. Normal thyroid. CARDIOVASCULAR: Regular rate and rhythm. No murmurs, gallops, or rubs. RESPIRATORY: Breath sounds clear equal bilaterally. No crackles or wheezes. No accessory muscle use. GASTROINTESTINAL: Abdomen soft, non-tender, nondistended, + bowel sounds. MUSCULOSKELETAL: No cyanosis, or edema. NEURO: no focal deficits, no slurring of speech Results Procedures completed during hospitalization: See hospital course Completed studies during hospitalization: Pending at discharge 12/13/17 07:37 Surgical [PTH] Routine Labs on day of discharge: Labs from last 24 hours 12/21/17 12/20/17 12/14/17 05:26 04:47 16:10 Sodium 135 L Potassium 4.3 Chloride 99 Carbon Dioxide 27.3 Anion Gap 9 BUN 7 Creatinine 0.66 Estimated GFR Greater than 89 Random Glucose 93 Hemoglobin A1c 5.2 Calcium 8.5 Phosphorus 3.6 Magnesium 2.1 CSF Cryptococcus Ag Not detected - Impressions ITS Impressions Pulmonary Perfusion Imaging 12/12/17 20:24 CONCLUSION: 1. Low probability pulmonary embolism. Bile Acid Absorption NM 12/14/17 00:00 CONCLUSION: 1. Negative examination. No evidence for cystic duct or biliary ductal obstruction. Lumbar Puncture Fluoroscopy 12/14/17 00:00 CONCLUSION: 1. Uncomplicated fluoroscopically guided lumbar puncture. Head MRI 12/14/17 13:20 CONCLUSION: 1. No acute intracranial abnormality identified. 2. No abnormal enhancement identified. Chest X-Ray 12/14/17 19:23 CONCLUSION: The lungs are clear. Abdomen X-Ray 12/18/17 00:00 CONCLUSION: Resolution of the previously seen colonic ileus Discharge Plan - Discharge Disposition Patient Disposition: Discharge Home - Discharge Condition Condition: Stable - Discharge Order Discharge Orders: Discharge Order (Routine); Ordered 12/21/17 Ordered By: Tavares Gan Cardiology Clear for Discharge (Routine); Ordered 12/21/17 Ordered By: June Shadeed - Discharge Details Anticipated Discharge Date: 12/21/17 - Physicians Team Primary Care Provider: UNKNOWN, Attending Provider: Tavares Gan Other Providers: Ilana Vaughan MD ; Pauline Kuhn MD ; Kareen Powell MD ; Sarah Mendez MD ; Vesta Mills MD - Rxs /Orders / Referrals /Forms Prescriptions: New amlodipine [Norvasc] 5 mg Tablet 5 mg PO DAILY PRN (Reason: Hypertension) Qty: 30 RF: 0 magnesium oxide 400 mg (241.3 mg magnesium) Tablet 400 mg PO DAILY Qty: 30 RF: 0 metoprolol tartrate 25 mg Tablet 25 mg PO BID Qty: 60 RF: 0 potassium chloride [Klor-Con 10] 10 mEq Tablet Extended Release 20 meq PO BID Qty: 30 RF: 0 Continue estradiol 2 mg Tablet 2 mg PO DAILY morphine 15 mg Tablet 15 mg PO TID PRN (Reason: Pain) oxycodone 10 mg Tablet 10 mg PO BID PRN (Reason: Pain) pantoprazole [Protonix] 20 mg Tablet,Delayed Release (Dr/Ec) 40 mg PO DAILY Ambulatory Orders / Order Sets / DME: Basic Metabolic Panel (Routine) Timeframe: 20171225 Location: Determined by Patient Ordered By: Tavares Gan Referrals: Ilana Vaughan MD [Physician] - See Instructions (1 week) UNKNOWN, [Primary Care Provider] - See Instructions (1 week)
[2017-12-21 09:23] VITALS: BP 105/57; TEMP 97.4
[2017-12-21] MEDS: Acetaminophen 325 MG Tablet PO PRN (09:54)
[2017-12-21 10:33] VITALS: PULSE 86
== END 2017-12-21 10:29 | disposition home or self-care (01) ==
LOC: NEDDLT 10:20 → HCIS 10:20 → HCVI 12-14 18:40 → HCIS 12-19 15:42
PROVIDERS: ADMIT Hospitalist; ATTEND Hospitalist
PROC: PANENDO (2017-12-13 15:50)